=== PATIENT | female | born 1950 | race Caucasian/White ===

== ENCOUNTER → 2017-01-04 | Outpatient (CLI) | payer BC ==
[~2017-01-04] MED LIST: ALPR-411 PO; LCTXP OR; LEVO1TAB34 PO; LPR25 PO; METR500T PO; MULT-513 PO; [UNRECOGNIZED DRUG - CODE] TOP
--- NOTE | 2017-01-04 11:22 | DIAGNOSTIC IMAGING REPORT ---
CHEST 2 VIEWS ROUTINE CLINICAL HISTORY: Persistent cough COMPARISON STUDY: 10/14/2016 FINDINGS: The heart is normal in size. The patient developed subtle interstitial thickening. There is no lobar consolidation. There are no pleural effusions. There is no failure.[ IMPRESSION: Interval development of subtle interstitial thickening left greater than right. This may indicate an inflammatory or infectious interstitial process. Clinical and radiographic follow-up is recommended. Electronically signed by: Fernando Samuels M.D. 01/04/2017 11:21 AM Dictated Date/Time: 01/04/2017 11:20 AM
== END | disposition home or self-care (01) ==
LOC: C.RAD1850 10:33
PROVIDERS: ATTEND Family Medicine
DX: R05 Cough (principal)

== ENCOUNTER 2017-12-12 22:34 | Inpatient (IN) | payer BC, OTHER ==
[~2017-12-12] VITALS: Ht 167.6 cm; Wt 74.9 kg
[~2017-12-12 22:34] MED LIST changes: -LEVO1TAB34 PO; -METR500T PO
[2017-12-12] MEDS ORDERED: SODIUM CHLORIDE 0.9% 1000ML 1,000 ML IV STA (23:26)
[2017-12-12] MEDS ORDERED: ONDANSETRON INJ 2 MG/ML 2 ML VIAL IV STA (23:26)
[2017-12-12] MEDS ORDERED: MoRPHine SULFATE 10 MG/ML CARP/VIAL IV STA (23:26)
--- NOTE | 2017-12-12 23:27 | EMERGENCY ROOM VISIT NOTE ---
History Report prepared by Jw: Vazquez Haney Under the Supervision of: Dr. Justin Kingsley M.D. First contact with patient: 23:19 Chief Complaint: ABDOMINAL PAIN Stated Complaint: BAD STOMACH PAIN Nursing Triage Summary: Patient ambulatory to triage with a steady and upright gait, states "I have had a bowel blockage before. I have had this pain since last night. The pain keeps getting worse. I think I have another blockage." Patient reports her last BM was a small amount just prior to coming to the ED. Patient admits to mild nausea; no vomiting. Patient reports 4 blockages in the past. Patient has CLL and just had an IV Ig infusion a few days ago. History of Present Illness The patient is a 67 year old female who presents to the Emergency Room with complaints of constant abdominal pain beginning last night. The patient states that she has come to the emergency room four times before for bowel blockages. She notes that she has not had any abdominal surgeries and that her bowel obstructions started spontaneously in 2010. She reports that her current symptoms feel similar to when she had a bowel blockage. The patient states that her stomach does not feel hard and notes that she had a small bowel movement that was solid before coming to the emergency department today. In addition to her abdominal pain, she also complains of mild nausea, but denies any vomiting, burning urination, CP, SOB, fever, and recent falls. She notes that she has not eaten anything in the last 24 hours due to her pain. She reports that she has a history of an IVIG for her CLL, but does not have a history of kidney problems, aortic aneurysms, and does not smoke. The patient states that she took a Vicodin last night and a Tylenol today with no relief of her symptoms. Source of History: patient Onset: last night Position: abdomen Timing: constant Associated Symptoms: + nausea (mild), No fevers, No chest pain, No SOB, No vomiting Note: She notes that she has has not eaten anything in the past 24 hours. She denies burning urination, recent falls, and feeling like her stomach is hard. Review of Systems See HPI for pertinent positives & negatives. A total of 10 systems reviewed and were otherwise negative. Past Medical & Surgical Medical Problems: (1) Acute cholecystitis (2) Anemia (3) Chest congestion (4) Chronic lymphoid leukemia, disease (5) Intestinal obstruction (6) Malignant melanoma of lower limb (7) Osteoporosis (8) Palpitations (9) SBO (small bowel obstruction) Family History Cancer Lung disease Social History Smoking Status: Former Smoker Drug Use: none Marital Status: Housing Status: lives with significant other Occupation Status: employed Current/Historical Medications Scheduled Lactobacillus Acidophilus (Lactinex Granules), 1 GM PO TID Multivitamins/Minerals (Mvi With Minerals), 1 TAB PO DAILY Tretinoin (Tretinoin), 1 APPLN TOP HS Scheduled PRN Acetaminophen (Tylenol), 1,000 MG PO DIRECTED PRN for Pain Metoprolol Tartrate (Lopressor), 25 MG PO DAILY PRN for RACING HEART Allergies Coded Allergies: Allopurinol (Verified Allergy, Intermediate, SKIN REACTION, 12/13/17) Prednisone (Verified Allergy, Intermediate, SKIN REACTION, 12/13/17) Sulfa Antibiotics (Verified Allergy, Intermediate, HIVES, 12/13/17) Sulfamethoxazole w/Trimethoprim (Verified Allergy, Intermediate, SKIN REACTION, 12/13/17) Valacyclovir (Verified Allergy, Intermediate, SKIN REACTION, 12/13/17) Physical Exam Vital Signs Date Time Temp Pulse Resp B/P (MAP) Pulse Ox O2 Delivery O2 Flow Rate FiO2 12/13/17 02:54 90 15 94 12/13/17 02:49 90 17 93 Nasal Cannula 2.0 12/13/17 02:34 98 16 95 12/13/17 02:30 141/72 12/13/17 02:19 93 14 94 12/13/17 02:04 91 17 90 12/13/17 02:00 140/87 12/13/17 01:58 Nasal Cannula 2.0 12/13/17 01:49 93 15 91 12/13/17 01:34 92 16 89 12/13/17 01:30 153/79 12/13/17 01:19 96 17 90 12/13/17 01:04 92 14 89 12/13/17 01:00 160/88 12/13/17 00:49 100 16 90 12/13/17 00:34 103 12 95 12/13/17 00:30 145/82 12/13/17 00:19 87 17 92 12/12/17 23:59 96 17 92 12/12/17 23:54 92 15 94 12/12/17 23:49 96 15 92 12/12/17 23:44 98 19 95 12/12/17 23:39 103 21 94 Room Air 12/12/17 23:32 132/79 12/12/17 23:08 36.7 114 20 136/75 94 Room Air Physical Exam GENERAL: Patient is uncomfortable appearing and in moderate distress. HEENT: No acute trauma, normocephalic atraumatic, mucous membranes moist, no nasal congestion, no scleral icterus. NECK: No stridor, no adenopathy, no meningismus, trachea is midline. LUNGS: No dyspnea. Clear to auscultation and equal bilaterally. No wheeze, no rhonchi. HEART: Regular rhythm and tachycardic. No murmurs, rubs, gallops appreciated. ABDOMEN: Soft, bowel sounds positive, no masses appreciated, no peritonitis. Periumbilical tenderness to palpation. BACK: No midline tenderness, no CVA tenderness EXTREMITIES: Normal motion all extremities, no cyanosis, no edema. NEUROLOGIC: Alert and oriented, no acute motor or sensory deficits, no focal weakness, cranial nerves grossly intact. SKIN: No rash, no jaundice, no diaphoresis. Medical Decision & Procedures ER Provider Diagnostic Interpretation: Radiology results and stated below per my review interpretation: 4 ACUTE ABDOMINAL SERIES WITH CHEST X-RAY: Distended loop of small bowel in lower mid abdomen, with air fluid levels consistent with small bowel obstruction. No free air appreciated. Laboratory Results 12/12/17 23:20 Red Blood Count 4.32, Mean Corpuscular Volume 85.4, Mean Corpuscular Hemoglobin 28.2, Mean Corpuscular Hemoglobin Concent 33.1, Mean Platelet Volume 10.4 12/12/17 23:20 Test 12/12/17 23:20 12/12/17 23:30 12/12/17 23:40 White Blood Count 107.07 K/uL (4.8-10.8) Red Blood Count 4.32 M/uL (4.2-5.4) Hemoglobin 12.2 g/dL (12.0-16.0) Hematocrit 36.9 % (37-47) Mean Corpuscular Volume 85.4 fL (80-100) Mean Corpuscular Hemoglobin 28.2 pg (25-34) Mean Corpuscular Hemoglobin Concent 33.1 g/dl (32-36) Platelet Count 141 K/uL (130-400) Mean Platelet Volume 10.4 fL (7.4-10.4) RDW Standard Deviation 49.8 fL (36.4-46.3) RDW Coefficient of Variation 15.8 % (11.5-14.5) Neutrophils % (Manual) 4.4 % Lymphocytes % (Manual) 94.7 % Monocytes % (Manual) 0.9 % Neutrophils # (Manual) 4.71 K/uL (1.4-6.5) Total Absolute Neutrophils 4.71 K/uL (1.4-6.5) Lymphocytes # (Manual) 101.40 K/uL (1.2-3.4) Total Absolute Lymphocytes 101.40 K/uL (1.2-3.4) Monocytes # (Manual) 0.96 K/uL (0.11-0.59) Est Creatinine Clear Calc Drug Dose 75.6 ml/min Estimated GFR () 96.9 Estimated GFR (Non- 83.6 BUN/Creatinine Ratio 14.2 (10-20) Calcium Level 9.4 mg/dl (8.5-10.1) Total Bilirubin 0.4 mg/dl (0.2-1) Direct Bilirubin < 0.1 mg/dl (0-0.2) Aspartate Amino Transf (AST/SGOT) 60 U/L (15-37) Alanine Aminotransferase (ALT/SGPT) 47 U/L (12-78) Alkaline Phosphatase 217 U/L (45-117) Total Protein 8.0 gm/dl (6.4-8.2) Albumin 3.9 gm/dl (3.4-5.0) Lipase 117 U/L (73-393) Bedside Hemoglobin 11.2 g/dl (12.0-16.0) Bedside Hematocrit 33 % (37-47) Bedside Sodium 138 mEq/L (135-144) Bedside Potassium 4.0 mEq/L (3.3-5.0) Bedside Chloride 103 mEq/L (101-112) Bedside Total CO2 25 mEq/l (24-31) Anion Gap 15.0 mmol/L (16-25) Bedside Blood Urea Nitrogen 10 mg/dl (7-18) Bedside Creatinine 0.7 mg/dl (0.6-1.3) Bedside Glucose (other) 123 mg/dl (70-99) Bedside Ionized Calcium ([place]) 1.22 mmol/l (1.12-1.32) Urine Color DK YELLOW Urine Appearance CLEAR (CLEAR) Urine pH 5.5 (4.5-7.5) Urine Specific [place] 1.023 (1.000-1.030) Urine Protein NEG (NEG) Urine Glucose (UA) NEG (NEG) Urine Ketones TRACE (NEG) Urine Occult Blood NEG (NEG) Urine Nitrite NEG (NEG) Urine Bilirubin NEG (NEG) Urine Urobilinogen NEG (NEG) Urine Leukocyte Esterase SMALL (NEG) Urine WBC (Auto) 10-30 /hpf (0-5) Urine RBC (Auto) 5-10 /hpf (0-4) Urine Hyaline Casts (Auto) 1-5 /lpf (0-5) Urine Epithelial Cells (Auto) 10-20 /lpf (0-5) Urine Bacteria (Auto) NEG (NEG) Laboratory results as reviewed by me. Medications Administered Medications (Trade) Dose Ordered Sig/Mary Route Start Time Stop Time Status Last Admin Dose Admin Morphine Sulfate (MoRPHine SULFATE INJ) 6 mg NOW STAT IV 12/12/17 23:26 12/12/17 23:27 DC 12/12/17 23:49 6 MG Ondansetron HCl (Zofran Inj) 4 mg NOW STAT IV 12/12/17 23:26 12/12/17 23:27 DC 12/12/17 23:47 4 MG Sodium Chloride 1,000 ml @ 999 mls/hr Q1H1M STAT IV 12/12/17 23:26 12/13/17 00:26 DC 12/12/17 23:45 999 MLS/HR Lorazepam (Ativan Inj) 1 mg NOW STAT IV 12/13/17 00:25 12/13/17 00:26 DC 12/13/17 00:30 1 MG Hydromorphone HCl (Dilaudid Inj) 0.5 mg NOW STAT IV 12/13/17 01:29 12/13/17 01:30 DC 12/13/17 01:47 0.5 MG Ondansetron HCl (Zofran Inj) 4 mg NOW STAT IV 12/13/17 01:48 12/13/17 01:53 DC 12/13/17 01:53 4 MG ED Course 2321: The patient was evaluated in room A11. A complete history and physical exam was performed. 0033: I discussed the patient's case with Dr. Cruz. 0113: Upon reevaluation, the patient is stable. Discussed results and treatment plan with the patient. She verbalized understanding and agreement with the treatment plan. The patient will be evaluated for further management. Discussed the patient's case with Dr. David - KIERA Piña. The patient will be evaluated for further treatment and disposition. Medical Decision Differential: Bowel Obstruction, Volvulus, Gastroenteritis, Intraabdominal Infection, Biliary Pathology, amongst other pathology entertained. 67 yr old female with no history of abdominal surgeries but notes previous small bowel obstructions of unknown cause. Arrives with same symptoms as previous obstructions and Xrays consistent with this. NG tube placed. Pain controlled with narcotics. Surgery and Hospitalists involved in patient care. Unclear why she keeps having this. Of note, patient with CT order placed by surgery service, nursing reporting patient becoming severely nauseous when trying to drink further contrast thus I advised turning NG tube back on to avoid vomiting/aspiration, and just going ahead with CT now rather than waiting longer. Medication Reconcilliation Current Medication List: was personally reviewed by me Blood Pressure Screening Patient's blood pressure: Elevated blood pressure Blood pressure disposition: Elevated BP felt to be situational Consults Time Called: 30 Consulting Physician: Dr. Cruz Returned Call: [phone] Discussed the patient's case. Additional Consults: Time Called: 011 Consulted Physician: KIERA Rodas Returned Call: [phone] Additional Comments: Discussed the patient's case. The patient will be evaluated for further treatment and disposition. Impression Primary Impression: SBO (small bowel obstruction) Scribe Attestation The scribe's documentation has been prepared under my direction and personally reviewed by me in its entirety. I confirm that the note above accurately reflects all work, treatment, procedures, and medical decision making performed by me. Departure Information Dispostion Being Evaluated By Hospitalist Sendy Hazel M.D. (PCP) Patient Instructions [facility]
[2017-12-12 23:43] LABS: ISTAT CREATININE 0.7 mg/dl (0.6-1.3); ISTAT IONIZED CALCIUM 1.22 mmol/l (1.12-1.32)
[2017-12-12 23:54] LABS: ALBUMIN 3.9 gm/dl (3.4-5.0); ALT/SGPT 47 U/L (12-78); AST/SGOT 60 U/L (15-37); BLOOD UREA NITROGEN 11 mg/dl (7-18); CALCIUM 9.4 mg/dl (8.5-10.1); CARBON DIOXIDE 25 mmol/L (21-32); CREATININE 0.75 mg/dl (0.60-1.20); GLUCOSE 117 mg/dl (70-99); LIPASE 117 U/L (73-393); POTASSIUM 4.4 mmol/L (3.5-5.1); SODIUM 137 mmol/L (136-145)
[2017-12-12 23:57] LABS: ALKALINE PHOSPHATASE 217 U/L (45-117)
[2017-12-13] VITALS (17 sets, daily range): BP systolic 91–150; BP diastolic 59–79; PULSE 78–200; TEMP 36.5–36.9; O2SAT 89–98; Ht 167.6 cm; Wt 74.9 kg
[2017-12-13 00:05] LABS: HEMATOCRIT 36.9 % (37-47); HEMOGLOBIN 12.2 g/dL (12.0-16.0); MEAN CELL VOLUME 85.4 fL (80-100); MEAN CORPUSCULAR HEMOGLOBIN 28.2 pg (25-34); MEAN CORPUSCULAR HGB CONC 33.1 g/dl (32-36); MEAN PLATELET VOLUME 10.4 fL (7.4-10.4); PLATELET COUNT 141 K/uL (130-400); RED CELL DISTRIBUTION WIDTH CV 15.8 % (11.5-14.5); RED CELL DISTRIBUTION WIDTH SD 49.8 fL (36.4-46.3); WHITE BLOOD COUNT 107.07 K/uL (4.8-10.8)
[2017-12-13] MEDS ORDERED: LORAZEPAM 2 MG/ML 1 ML VIAL IV STA (00:25)
[2017-12-13] MEDS ORDERED: LACT1GRA PO (00:27)
[2017-12-13] MEDS ORDERED: ACET-1256 PO (00:27)
[2017-12-13] MEDS ORDERED: HYDROmorphone INJ 0.5 MG/0.5 ML SYR IV STA (01:29)
[2017-12-13] MEDS ORDERED: ONDANSETRON INJ 2 MG/ML 2 ML VIAL IV STA (01:48)
[2017-12-13] MEDS ORDERED: ONDANSETRON INJ 2 MG/ML 2 ML VIAL ONE (01:52)
[2017-12-13] MEDS ORDERED: MoRPHine SULFATE 4 MG/ML 1 ML CARP\\VIAL IV PRN (03:00)
[2017-12-13] MEDS ORDERED: MoRPHine SULFATE 2 MG/ML CARP IV PRN (03:00)
[2017-12-13] MEDS ORDERED: ONDANSETRON INJ 2 MG/ML 2 ML VIAL IV PRN (03:00)
[2017-12-13] MEDS ORDERED: OPTIRAY 320 IV PRN (03:30)
--- NOTE | 2017-12-13 03:35 | Medical Consult ---
Consultation Date of Consultation: Dec 13, 2017. Attending Physician: Reason for Consultation: small bowel obstruction History of Present Illness Patient is a 67F who presents to the ED tonight with generalized abdominal pain and nausea which began last night. Rates her pain at 5/10. States she ate a chicken sandwich from [email or web address] and started noticing her pain. Denies any vomiting. Reports 4 previous episodes of small bowel obstruction in the past, the first being in 2010, which were all treated conservatively. An NG tube was placed for 3/4 of these past episodes. Denies any past abdominal surgeries. Reports that her symptoms feel similar to her previous bowel obstructions. States she had a small bowel movement today right before coming to the ED. Denies blood in her stool. States she had her last colonoscopy 2-3 years ago with the [facility] but does not remember which doctor performed it. Does not recall anything abnormal with her last colonoscopy. She has been urinating without trouble. Reports she did take a vicodin last night without relief. Denies regular use of opioid medications. States she received morphine in the ED which has not done much to relieve her pain. NG tube was placed in the ED with minimal output so far. She also received a dose of Zofran and denies any nausea at this time. Of note, she does have a history of CLL and currently follows with [facility] and reports receiving her last IVIG therapy this past Saturday12/09/17. WBC count 107.07. Past Medical/Surgical History Medical Problems: (1) Diffuse abdominal pain Status: Acute (2) SBO (small bowel obstruction) Status: Acute Family History Cancer Lung disease Social History Smoking Status: Former Smoker Drug Use: none Marital Status: Housing Status: lives with significant other Occupation Status: employed Allergies Coded Allergies: Allopurinol (Verified Allergy, Intermediate, SKIN REACTION, 12/13/17) Prednisone (Verified Allergy, Intermediate, SKIN REACTION, 12/13/17) Sulfa Antibiotics (Verified Allergy, Intermediate, HIVES, 12/13/17) Sulfamethoxazole w/Trimethoprim (Verified Allergy, Intermediate, SKIN REACTION, 12/13/17) Valacyclovir (Verified Allergy, Intermediate, SKIN REACTION, 12/13/17) Review of Systems Constitutional: No fever, No chills Respiratory: No shortness of breath Cardiovascular: No chest pain Abdomen: + pain (Generalized), + nausea, No vomiting, No diarrhea, No constipation Genitourinary - Female: No dysuria Physical Exam Date Time Temp Pulse Resp B/P (MAP) Pulse Ox O2 Delivery O2 Flow Rate FiO2 12/12/17 23:59 96 17 92 12/12/17 23:54 92 15 94 12/12/17 23:49 96 15 92 12/12/17 23:44 98 19 95 12/12/17 23:39 103 21 94 Room Air 12/12/17 23:32 132/79 12/12/17 23:08 36.7 114 20 136/75 94 Room Air Patient sitting up in bed chatting with her at bedside upon entering the room. General Appearance: WD/WN, no apparent distress Head: normocephalic, atraumatic ENT: hearing grossly normal Neck: trachea midline Respiratory/Chest: no respiratory distress, no accessory muscle use Abdomen/GI: normal bowel sounds, soft, no organomegaly, no pulsatile mass, + tenderness (Generalized. most prominent in epigastric and periumbilical areas.) Neurologic/Psych: alert, normal mood/affect, oriented x 3 Laboratory Results Last 24 Hours Test 12/12/17 23:20 12/12/17 23:30 12/12/17 23:40 White Blood Count 107.07 K/uL Red Blood Count 4.32 M/uL Hemoglobin 12.2 g/dL Hematocrit 36.9 % Mean Corpuscular Volume 85.4 fL Mean Corpuscular Hemoglobin 28.2 pg Mean Corpuscular Hemoglobin Concent 33.1 g/dl Platelet Count 141 K/uL Mean Platelet Volume 10.4 fL RDW Standard Deviation 49.8 fL RDW Coefficient of Variation 15.8 % Neutrophils % (Manual) 4.4 % Lymphocytes % (Manual) 94.7 % Monocytes % (Manual) 0.9 % Neutrophils # (Manual) 4.71 K/uL Total Absolute Neutrophils 4.71 K/uL Lymphocytes # (Manual) 101.40 K/uL Total Absolute Lymphocytes 101.40 K/uL Monocytes # (Manual) 0.96 K/uL Sodium Level 137 mmol/L Potassium Level 4.4 mmol/L Chloride Level 106 mmol/L Carbon Dioxide Level 25 mmol/L Anion Gap 6.0 mmol/L 15.0 mmol/L Blood Urea Nitrogen 11 mg/dl Creatinine 0.75 mg/dl Est Creatinine Clear Calc Drug Dose 75.6 ml/min Estimated GFR () 96.9 Estimated GFR (Non- 83.6 BUN/Creatinine Ratio 14.2 Random Glucose 117 mg/dl Calcium Level 9.4 mg/dl Total Bilirubin 0.4 mg/dl Direct Bilirubin < 0.1 mg/dl Aspartate Amino Transf (AST/SGOT) 60 U/L Alanine Aminotransferase (ALT/SGPT) 47 U/L Alkaline Phosphatase 217 U/L Total Protein 8.0 gm/dl Albumin 3.9 gm/dl Lipase 117 U/L Bedside Hemoglobin 11.2 g/dl Bedside Hematocrit 33 % Bedside Sodium 138 mEq/L Bedside Potassium 4.0 mEq/L Bedside Chloride 103 mEq/L Bedside Total CO2 25 mEq/l Bedside Blood Urea Nitrogen 10 mg/dl Bedside Creatinine 0.7 mg/dl Bedside Glucose (other) 123 mg/dl Bedside Ionized Calcium ([place]) 1.22 mmol/l Urine Color DK YELLOW Urine Appearance CLEAR Urine pH 5.5 Urine Specific [place] 1.023 Urine Protein NEG Urine Glucose (UA) NEG Urine Ketones TRACE Urine Occult Blood NEG Urine Nitrite NEG Urine Bilirubin NEG Urine Urobilinogen NEG Urine Leukocyte Esterase SMALL Urine WBC (Auto) 10-30 /hpf Urine RBC (Auto) 5-10 /hpf Urine Hyaline Casts (Auto) 1-5 /lpf Urine Epithelial Cells (Auto) 10-20 /lpf Urine Bacteria (Auto) NEG Assessment & Plan Abdominal pain, nausea, Multiple dilated loops of small bowel per chest/ abdominal x-ray suggestive of small bowel obstruction. Pain controlled, No N/V at this time. No acute surgical intervention indicated at this time. Will opt for conservative management. Admit per medicine service. CT abd/pelvis ordered, NPO, NG tube placed, IV fluids, IV pain medication PRN , IV Zofran PRN for nausea, SCDs. Findings discussed with Dr. Petit. Will discuss findings with Dr. Pierre in the AM. Please contact with questions or concerns. 12/13/17- agree with above assessment- has dilated , chronically thickened loop of small bowel in pelvis. This appears to be different than prior CTs. Clinically , her abd is soft, normal bowel sounds, minimal tenderness- initial NG output was approx 100cc w/ [address] contrast- no reading on CT yet. Discussed possible need for exploration depending on her progress- consider GI evaluation- has seen Dr Martínez in the past. She does not want surgery unless absolutely necessary- cont NG, IV meds, may have ice. Dr Gold covering over weekend.
[2017-12-13] MEDS: NSS + 20MEQ KCL 1000ML 1,000 ML IV SCH ×3 (04:29→23:59)
[2017-12-13] MEDS ORDERED: PIPERACILL/TAZOBAC IV 3.375 GM in DEXTROSE 5% 100ML 100 ML IV ONE ×4 (04:30)
[2017-12-13] MEDS ORDERED: PIPERACILL/TAZOBAC CONSULT ACTIVE PRN (04:30)
--- NOTE | 2017-12-13 05:05 | History and Physical ---
History & Physical Date & Time of Service: Dec 13, 2017 at 04:56 Chief Complaint: Cll, Sbo Primary Care Physician: Sendy Mohamud M.D. History of Present Illness Source: patient, hospital records The patient is a 67-year-old female with a previous history of 4 bowel obstructions, none requiring surgery, who presents to the emergency department with constant abdominal pain that began the previous evening, similar to previous episodes in the past. She reports that she did have a small bowel movement prior to coming to the emergency department today. She has had some mild nausea, but no vomiting. Past Medical/Surgical History Medical Problems: (1) Anemia Status: Chronic (2) Chest congestion Status: Resolved (3) Chronic lymphoid leukemia, disease Status: Chronic (4) Intestinal obstruction Status: Resolved (5) Malignant melanoma of lower limb Permanent Comment: right thigh Status: Resolved (6) Osteoporosis Status: Chronic (7) Palpitations Status: Resolved Family History Cancer Lung disease Social History Smoking Status: Former Smoker Smokeless Tobacco Use: No Alcohol Use: none Drug Use: none Marital Status: Housing status: lives with family Occupational Status: employed Immunizations History of Influenza Vaccine: Yes History of Tetanus Vaccine?: UTD History of Pneumococcal: No History of Hepatitis B Vaccine: No Multi-Drug Resistant Organisms History of MDRO: No Allergies Coded Allergies: Allopurinol (Verified Allergy, Intermediate, SKIN REACTION, 12/13/17) Prednisone (Verified Allergy, Intermediate, SKIN REACTION, 12/13/17) Sulfa Antibiotics (Verified Allergy, Intermediate, HIVES, 12/13/17) Sulfamethoxazole w/Trimethoprim (Verified Allergy, Intermediate, SKIN REACTION, 12/13/17) Valacyclovir (Verified Allergy, Intermediate, SKIN REACTION, 12/13/17) Home Medications Scheduled Lactobacillus Acidophilus (Lactinex Granules), 1 GM PO TID Multivitamins/Minerals (Mvi With Minerals), 1 TAB PO DAILY Tretinoin (Tretinoin), 1 APPLN TOP HS Scheduled PRN Acetaminophen (Tylenol), 1,000 MG PO DIRECTED PRN for Pain Metoprolol Tartrate (Lopressor), 25 MG PO DAILY PRN for RACING HEART Review of Systems The patient denies chest pain, palpitations, shortness of breath, dyspnea on exertion, cough, lower extremity swelling, sore throat, fevers, chills, sweats, weight change, blood in urine or stool, dysuria, urinary frequency or urgency, headache, memory loss, loss of consciousness, rash, abnormal bruising or bleeding, imbalance, focal weakness, numbness or tingling in arms or legs, generalized arthralgias or myalgias, back or neck pain, or night sweats. The review of systems is otherwise negative other than for that already noted above, and at least 10 systems have been reviewed. Physical Exam Vital Signs Date Time Temp Pulse Resp B/P (MAP) Pulse Ox O2 Delivery O2 Flow Rate FiO2 12/13/17 03:44 92 94 Nasal Cannula 2.0 12/13/17 03:39 89 16 94 12/13/17 03:34 86 12 97 12/13/17 03:30 129/63 12/13/17 03:29 91 12 96 12/13/17 03:24 99 18 95 12/13/17 03:09 90 15 94 12/13/17 03:00 134/67 12/13/17 02:54 90 15 94 12/13/17 02:49 90 17 93 Nasal Cannula 2.0 12/13/17 02:34 98 16 95 12/13/17 02:30 141/72 12/13/17 02:19 93 14 94 12/13/17 02:04 91 17 90 12/13/17 02:00 140/87 12/13/17 01:58 Nasal Cannula 2.0 12/13/17 01:49 93 15 91 12/13/17 01:34 92 16 89 12/13/17 01:30 153/79 12/13/17 01:19 96 17 90 12/13/17 01:04 92 14 89 12/13/17 01:00 160/88 12/13/17 00:49 100 16 90 12/13/17 00:34 103 12 95 12/13/17 00:30 145/82 12/13/17 00:19 87 17 92 12/12/17 23:59 96 17 92 12/12/17 23:54 92 15 94 12/12/17 23:49 96 15 92 12/12/17 23:44 98 19 95 12/12/17 23:39 103 21 94 Room Air 12/12/17 23:32 132/79 12/12/17 23:08 36.7 114 20 136/75 94 Room Air The patient is awake, alert and oriented 3, well developed and well nourished, normocephalic and atraumatic, lying in bed and in no acute distress. HEENT--PERRL, EOMI, mucous membranes and oropharynx dry. Neck--supple. No JVD. No bruits. Thyroid normal, trachea midline, no adenopathy. Heart--normal S1 and S2. No murmurs, rubs or gallops. Lungs--clear bilaterally, no respiratory distress, no accessory muscle use. Abdomen--decreased bowel sounds. Soft. Mild generalized tender. Mildly distended. Extremities--no cyanosis or clubbing. No edema. There are good distal pulses b/ l. Dermatologic--normal skin turgor, normal color, no abnormal lymph nodes, no rash. Neurologic--cranial nerves II through XII grossly intact. Rheumatologic--normal range of motion. Psychiatric--normal affect. Diagnostics Laboratory Results Results Past 24 Hours Test 12/12/17 23:20 12/12/17 23:30 12/12/17 23:40 Range/Units White Blood Count 107.07 4.8-10.8 K/uL Red Blood Count 4.32 4.2-5.4 M/uL Hemoglobin 12.2 12.0-16.0 g/dL Hematocrit 36.9 37-47 % Mean Corpuscular Volume 85.4 80-100 fL Mean Corpuscular Hemoglobin 28.2 25-34 pg Mean Corpuscular Hemoglobin Concent 33.1 32-36 g/dl Platelet Count 141 130-400 K/uL Mean Platelet Volume 10.4 7.4-10.4 fL RDW Standard Deviation 49.8 36.4-46.3 fL RDW Coefficient of Variation 15.8 11.5-14.5 % Neutrophils % (Manual) 4.4 % Lymphocytes % (Manual) 94.7 % Monocytes % (Manual) 0.9 % Neutrophils # (Manual) 4.71 1.4-6.5 K/uL Total Absolute Neutrophils 4.71 1.4-6.5 K/uL Lymphocytes # (Manual) 101.40 1.2-3.4 K/uL Total Absolute Lymphocytes 101.40 1.2-3.4 K/uL Monocytes # (Manual) 0.96 0.11-0.59 K/uL Sodium Level 137 136-145 mmol/L Potassium Level 4.4 3.5-5.1 mmol/L Chloride Level 106 98-107 mmol/L Carbon Dioxide Level 25 21-32 mmol/L Anion Gap 6.0 15.0 16-25 mmol/L Blood Urea Nitrogen 11 7-18 mg/dl Creatinine 0.75 0.60-1.20 mg/dl Est Creatinine Clear Calc Drug Dose 75.6 ml/min Estimated GFR () 96.9 Estimated GFR (Non- 83.6 BUN/Creatinine Ratio 14.2 10-20 Random Glucose 117 70-99 mg/dl Calcium Level 9.4 8.5-10.1 mg/dl Total Bilirubin 0.4 0.2-1 mg/dl Direct Bilirubin < 0.1 0-0.2 mg/dl Aspartate Amino Transf (AST/SGOT) 60 15-37 U/L Alanine Aminotransferase (ALT/SGPT) 47 12-78 U/L Alkaline Phosphatase 217 45-117 U/L Total Protein 8.0 6.4-8.2 gm/dl Albumin 3.9 3.4-5.0 gm/dl Lipase 117 73-393 U/L Bedside Hemoglobin 11.2 12.0-16.0 g/dl Bedside Hematocrit 33 37-47 % Bedside Sodium 138 135-144 mEq/L Bedside Potassium 4.0 3.3-5.0 mEq/L Bedside Chloride 103 101-112 mEq/L Bedside Total CO2 25 24-31 mEq/l Bedside Blood Urea Nitrogen 10 7-18 mg/dl Bedside Creatinine 0.7 0.6-1.3 mg/dl Bedside Glucose (other) 123 70-99 mg/dl Bedside Ionized Calcium ([place]) 1.22 1.12-1.32 mmol/l Urine Color DK YELLOW Urine Appearance CLEAR CLEAR Urine pH 5.5 4.5-7.5 Urine Specific [place] 1.023 1.000-1.030 Urine Protein NEG NEG Urine Glucose (UA) NEG NEG Urine Ketones TRACE NEG Urine Occult Blood NEG NEG Urine Nitrite NEG NEG Urine Bilirubin NEG NEG Urine Urobilinogen NEG NEG Urine Leukocyte Esterase SMALL NEG Urine WBC (Auto) 10-30 0-5 /hpf Urine RBC (Auto) 5-10 0-4 /hpf Urine Hyaline Casts (Auto) 1-5 0-5 /lpf Urine Epithelial Cells (Auto) 10-20 0-5 /lpf Urine Bacteria (Auto) NEG NEG Microbiology Results 12/12/17 Urine Culture, Received Pending Impression Assessment and Plan Recurrent small bowel obstruction-- Admit to the medical surgical floor. Nothing by mouth status IV fluids Zosyn 3.375 mg IV every 8 hours Morphine sulfate 2-4 mg IV every 2 hours when necessary Zofran 4 mg IV every 6 hours when necessary Protonix 40 mg IV daily NG tube to low intermittent suction Consult general surgery to follow Serial CBC with differential, chemistry profile and magnesium level CLL-- WBC around 107, which is close to her baseline Level of Care Med/Surg Advanced Directives Existing Advance Directive: No Existing Living Will: No Existing Power of Rx Specialist: No Resuscitation Status FULL RESUSCITATION VTE Prophylaxis VTE Risk Assessment Done? Y/N: Yes Risk Level: Moderate Given or contraindicated: SCD's Social Service Consult None Apply
--- NOTE | 2017-12-13 07:25 | DIAGNOSTIC IMAGING REPORT ---
CT SCAN OF THE ABDOMEN AND PELVIS WITH IV CONTRAST CLINICAL HISTORY: Generalized abdominal pain. COMPARISON STUDY: Abdominal CT dated 08/01/2017. TECHNIQUE: Following the IV administration of 118 cc of Optiray 320, CT scan of the abdomen and pelvis is performed from the lung bases to the proximal femora. Images are reviewed in the axial, sagittal, and coronal planes. IV contrast was administered without complication. A dose lowering technique was utilized adhering to the principles of ALARA. CT DOSE: 378.79 mGy.cm FINDINGS: Lung bases: The heart is normal in size and without pericardial effusion. The lung bases are clear. Liver: The contrast-enhanced liver is normal in size, contour, and attenuation. There is no intrahepatic biliary ductal dilatation. The hepatic veins and portal veins are patent. Gallbladder: The gallbladder is contracted and filled with calcified gallstones. Spleen: The spleen is markedly enlarged, measuring 16.6 cm in length. Pancreas: Unremarkable. Adrenal glands: Unremarkable. Kidneys: The contrast enhanced kidneys are normal in size and without hydronephrosis. The kidneys enhance symmetrically. A subcentimeter cortical hypodensity in the lower pole the right kidney likely represents a cyst but is too small for definitive characterization. Abdominal vasculature: The abdominal aorta is normal in course and caliber noting mild atherosclerotic calcification. Stomach and bowel: An enteric tube terminates in the stomach. There is a small hiatal hernia. The duodenum is normal in configuration. There are distended, thick-walled, and hyperemic loops of small bowel in the pelvis. These are best seen on image #351 and measure up to 5 cm in diameter. There is stranding inflammatory change. The upstream small bowel loops are normal in caliber, and no discrete transition point is identified. There is mild sigmoid diverticulosis without CT evidence of acute diverticulitis. The appendix is normal as visualized. Peritoneum: There is no intraperitoneal free air or abdominal ascites. Lymphadenopathy: Mildly enlarged mesenteric lymph nodes in the right lower quadrant measure up to 11 mm in short axis. There are enlarged pelvic sidewall nodes. A node on image #3 and 44 measures 3.5 x 1.2 cm. A left pelvic sidewall node on image #350 measures 2.6 x 1.5 cm. No inguinal adenopathy is seen. Pelvic viscera: The bladder, uterus, and adnexa are normal as visualized. Skeletal structures: The skeletal structures are osteopenic. Mild degenerative change is present in the lumbar spine. There is near complete fusion of the sacroiliac joints. No lytic or blastic lesions are seen. IMPRESSION: 1. There are mildly distended, thick-walled, and hyperemic loops of small bowel in the pelvis with surrounding inflammatory change. The appearance is most typical for a nonspecific enteritis. This could be on an infectious or inflammatory basis such as Crohn's disease. Clinical correlation will be essential. 2. There is no convincing evidence of small bowel obstruction. No discrete transition point is identified. 3. Mildly enlarged mesenteric lymph nodes as well as free fluid in the pelvis are likely on a reactive basis. 4. The spleen is markedly enlarged and there is pelvic sidewall adenopathy. These findings are nonspecific but could be seen in the setting of a lymphoproliferative disorder. Clinical correlation will be essential. 5. An enteric tube terminates in the stomach. 6. Cholelithiasis. 7. Additional findings as above. Electronically signed by: Gadiel Narvaez M.D. 12/13/2017 7:24 AM Dictated Date/Time: 12/13/2017 7:15 AM
--- NOTE | 2017-12-13 07:40 | DIAGNOSTIC IMAGING REPORT ---
PA CHEST WITH ABDOMINAL SERIES CLINICAL HISTORY: Generalized abdominal pain. FINDINGS: A PA chest radiograph is compared to study dated 08/01/2017. The cardiomediastinal silhouette is unremarkable. The lungs and pleural spaces are clear. No pneumothorax is seen. The bony thorax is grossly intact. Supine and erect abdominal radiographs are correlated with abdominal CT dated 08/01/2017. Moderate colonic fecal retention is observed. There is no radiographic evidence of high-grade bowel obstruction. Distended and gas-filled loops of small bowel present in the mid abdomen. No evidence of intraperitoneal free air is seen. The spleen is markedly enlarged. There are no abnormal abdominal calcifications. Levels are noted in the left hemipelvis. The lumbosacral spine and bony pelvis appear intact. Degenerative change is present in the sacroiliac joints. IMPRESSION: 1. No active disease in the chest. 2. There is no radiographic evidence of high-grade bowel obstruction. There are nonspecific distended and gas-filled loops of small bowel in the midabdomen. 3. No intraperitoneal free air is seen. 4. Marked splenomegaly. Electronically signed by: Gadiel Narvaez M.D. 12/13/2017 7:39 AM Dictated Date/Time: 12/13/2017 7:37 AM
[2017-12-13] MEDS: PIPERACILL/TAZOBAC IV 3.375 GM in DEXTROSE 5% 100ML 100 ML IV SCH ×2 (10:02→17:53)
[2017-12-13] MEDS: PANTOprazole INJ 40 MG in SYRINGE 0 ML IV SCH (11:21)
[2017-12-13] MEDS ORDERED: ACETAMINOPHEN IV 100 ML IV PRN (11:45)
--- NOTE | 2017-12-13 15:46 | GASTROINTESTINAL CONSULTATION ---
DATE OF CONSULTATION: 12/13/2017 CHIEF COMPLAINT: Nausea, abnormal CT imaging. HISTORY OF PRESENT ILLNESS: Mrs. Claudio is a 67-year-old white female who presented to the Emergency Room for nausea and vomiting that has been present since approximately Saturday. She has a history of recurrent intermittent bowel obstructions dating back to 2010 at which point, her CLL was also diagnosed and received Rituxan. She did receive this IVIGG on Saturday. She describes that she was having flatus and passing a small amount of stools, but noted that her abdomen was uncomfortable and more distended than usual and ultimately developed pain in this area. She did not describe vomiting per se, but did have nausea. There was no hematemesis or coffee ground emesis and she was not having melena or bright red blood per rectum. She denies any fever or shaking chills. PAST MEDICAL HISTORY: Include anemia, chronic lymphoid leukemia since 2010, recurrent intestinal obstruction, malignant melanoma of the lower limb, osteoporosis, and palpitations. FAMILY HISTORY: Significant for a lung disease and cancer. SOCIAL HISTORY: The patient was a former smoker, but not current. She denies alcohol use, is , employed and lives with her family. MEDICATIONS: The patient's current medication list includes acetaminophen, pantoprazole, Zosyn, potassium, and morphine. ALLERGIES: ALLOPURINOL, PREDNISONE, SULFA ANTIBIOTICS, SULFAMETHOXAZOLE, TRIMETHOPRIM AND VALACYCLOVIR. REVIEW OF SYSTEMS: Otherwise, noncontributory based on 13-point exam except for mentioned above. PHYSICAL EXAMINATION: VITAL SIGNS: On admission showed afebrile 36.7, blood pressure 136/75, 94% on room air, respirations 20, heart rate 114. GENERAL: The patient is awake, alert and oriented x3. HEENT: Sclerae are anicteric, conjunctiva moist. Oral mucosa moist. There is an NG tube that is bothersome to the patient that is indwelling and she also reports that has not had any meaningful output since its placement. NECK: The neck shows normal range of motion. There is no cervical or supraclavicular adenopathy. I do not appreciate thyromegaly. HEART: Normal S1, S2. LUNGS: Clear to auscultation without rales, rhonchi or wheezes. ABDOMEN: Soft, mildly tender, and nondistended with positive bowel sounds. There is no rebound or guarding. There is mild tympany noted. There is no hepatosplenomegaly. There are no abdominal bruits or masses. There are no ventral wall hernias. EXTREMITIES: Showed normal range of motion without focal neurologic defects. Without clubbing, cyanosis or edema. RECTAL: Deferred. LABORATORY STUDIES: Blood counts on admission - white count is 107.07 (history of CLL), hemoglobin 12.2, MCV 85, platelets 141. BUN and creatinine are 11 and 0.75. Total and direct 0.4 and less than 0.1. AST 60, ALT 47, alkaline phosphatase 217, total protein 8, albumin 3.9, lipase 117. Ionized calcium 1.22. IMAGING STUDIES: Chest x-ray from December 13 revealed no active disease in the chest or evidence of a high grade bowel obstruction. There is a nonspecific gas filled loops in the small bowel, no free air with marked splenomegaly is noted. On CT scan, liver is normal with patent hepatic and portal veins. The gallbladder is contracted with calcified stones, markedly enlarged spleen at 16 cm, pancreas and adrenals are unremarkable. There is a nasogastric tube in the stomach with a small hiatal hernia. There are distended loops of small bowel in the pelvic region that measure up to 5 cm in diameter. There is also stranding noted. There is, however, no specific transition point identified, mild sigmoid diverticulosis without diverticulitis and a normal-appearing appendix are noted. Interestingly, the small bowel upstream from this loop of distended bowel appeared to be normal. There is no free air, there are mildly enlarged mesenteric lymph nodes noted with enlarged pelvic side wall nodes. Bladder, uterus and adnexa are normal. LFTs show a total bilirubin of 0.4, AST 60, ALT 47, and alkaline phosphatase 217. IMPRESSION AND PLAN: The patient with symptoms of recurrent bowel obstruction. In this instance, the patient seems to have more abdominal pain than usual, although the duration of symptoms are about the same. She is passing flatus and up until admission was having some stools passed that were nonbloody. She was not having significant vomiting. The small bowel loops seems to be dilated in the pelvic region. The differential for this includes inflammatory bowel disease, other pelvic inflammation, both possible effects of known pelvic adenopathy or primary small bowel wall process such as an infiltrative disease or lymphoma. I made the following recommendations: At the present time, the patient should be n.p.o. and would check a flat plate today to see if there has been any interval change. Would also irrigate the NG tube to see if this is clogged and limiting aspiration. If this is ineffective and there is no obvious distention or if it appears to be improved, then would consider removing the NG tube and observing. Would place the patient on PPI therapy and presently keep the patient n.p.o. with IV fluids and electrolyte management including calcium, magnesium and phosphorus and phosphate. It is unclear if the terminal ileum as involved such that this can be reached by colonoscopy. Will review the CT scan and see if this is in the reach of colonoscopy with terminal ileal intubation. At the present time, I am not sure that direct small bowel wireless capsule is prudent as this could potentially become lodged in this area. Patency Agile capsule could be considered prior to perform a capsule study. At some point, either a dedicated CT or MRI enterography or small bowel follow through may be helpful, if not recently performed. Will monitor with you. Dr. Henley will be covering the GI service this weekend. If you have any questions, please contact our service. Thank you for allowing us to participate in Ms. Claudio's care. KARLA
--- NOTE | 2017-12-13 15:46 | DIAGNOSTIC IMAGING REPORT ---
ABDOMEN 2 VIEWS CLINICAL HISTORY: assess for resolving distended bowel loops and proper NGT placem tube position COMPARISON STUDY: CT examination 12/13/2017 FINDINGS: Interval removal of the nasogastric tube. Bowel pattern is improved. No significant small bowel distention. Normal caliber colon. IMPRESSION: Improved bowel pattern status post removal of the nasogastric tube. No significant bowel or small bowel distention on the current study. The above report was generated using voice recognition software. It may contain grammatical, syntax or spelling errors. Electronically signed by: Venkatesh Koroma M.D. 12/13/2017 3:44 PM Dictated Date/Time: 12/13/2017 3:40 PM
--- NOTE | 2017-12-13 16:41 | Progress Note ---
Progress Note Date of Service Dec 13, 2017. Progress Note Patient admitted earlier this AM, this is follow up visit Doing well, no output from NGT, NG pulled, repeat x-ray shows resolution of bowel distention less pain today, + flatus, no nausea appreciate surgical and GI consultations will defer diet and further work up to GI and surgery afebrile, vitals stable abdomen soft, ND, hypoactive BS
[2017-12-13] MEDS ORDERED: METOPROLOL TARTRATE 1 MG/ML VIAL ONE ×2 (21:34→21:50)
[2017-12-13] MEDS ORDERED: NURSING VERBAL MED ORDER ONE ×2 (21:45→23:45)
[2017-12-13] MEDS ORDERED: METOPROLOL TARTRATE 1 MG/ML VIAL IV STA (21:50)
[2017-12-13] MEDS ORDERED: DILTIAZEM HCL 5 MG/ML 5 ML VIAL ONE (21:56)
[2017-12-13] MEDS ORDERED: DIGOXIN INJ 500 MCG/2 ML AMP ONE (22:06)
[2017-12-13 22:08] LABS: HEMATOCRIT 35.8 % (37-47); HEMOGLOBIN 11.5 g/dL (12.0-16.0); MEAN CELL VOLUME 87.5 fL (80-100); MEAN CORPUSCULAR HEMOGLOBIN 28.1 pg (25-34); MEAN CORPUSCULAR HGB CONC 32.1 g/dl (32-36); MEAN PLATELET VOLUME 9.9 fL (7.4-10.4); PLATELET COUNT 116 K/uL (130-400); RED CELL DISTRIBUTION WIDTH CV 16.2 % (11.5-14.5); RED CELL DISTRIBUTION WIDTH SD 51.9 fL (36.4-46.3); WHITE BLOOD COUNT 79.59 K/uL (4.8-10.8)
[2017-12-13] MEDS ORDERED: AMIODARONE IV BOLUS / DRIP IV STA (22:21)
[2017-12-13 22:26] LABS: CALCIUM 8.6 mg/dl (8.5-10.1); CREATININE 0.68 mg/dl (0.60-1.20); POTASSIUM 4.1 mmol/L (3.5-5.1)
[2017-12-13] MEDS ORDERED: AMIODARONE / D5W 100 ML IV SCH (22:45)
[2017-12-13] MEDS ORDERED: AMIODARONE / D5W 200 ML IV SCH (23:00)
[2017-12-14] VITALS (7 sets, daily range): BP systolic 97–156; BP diastolic 57–94; PULSE 76–86; TEMP 36.5–36.8; O2SAT 94–99
[2017-12-14] MEDS: PIPERACILL/TAZOBAC IV 3.375 GM in DEXTROSE 5% 100ML 100 ML IV SCH (02:10)
[2017-12-14] MEDS ORDERED: AMIODARONE / D5W 200 ML IV SCH (05:00)
[2017-12-14 07:36] LABS: ALT/SGPT 50 U/L (12-78); AST/SGOT 58 U/L (15-37); BLOOD UREA NITROGEN 11 mg/dl (7-18); CALCIUM 8.2 mg/dl (8.5-10.1); CARBON DIOXIDE 27 mmol/L (21-32); CREATININE 0.61 mg/dl (0.60-1.20); GLUCOSE 93 mg/dl (70-99); POTASSIUM 4.1 mmol/L (3.5-5.1); SODIUM 140 mmol/L (136-145)
[2017-12-14 07:47] LABS: ALKALINE PHOSPHATASE 154 U/L (45-117); TOTAL PROTEIN 6.4 gm/dl (6.4-8.2)
[2017-12-14] MEDS: NSS + 20MEQ KCL 1000ML 1,000 ML IV SCH ×2 (08:38→20:25)
[2017-12-14 08:39] LABS: HEMOGLOBIN 10.3 g/dL (12.0-16.0); MEAN CELL VOLUME 88.4 fL (80-100); MEAN CORPUSCULAR HEMOGLOBIN 28.5 pg (25-34); MEAN CORPUSCULAR HGB CONC 32.2 g/dl (32-36); MEAN PLATELET VOLUME 10.2 fL (7.4-10.4); PLATELET COUNT 95 K/uL (130-400); RED CELL DISTRIBUTION WIDTH CV 16.2 % (11.5-14.5); RED CELL DISTRIBUTION WIDTH SD 52.1 fL (36.4-46.3); WHITE BLOOD COUNT 69.93 K/uL (4.8-10.8)
--- NOTE | 2017-12-14 11:57 | Surgery Progress Note ---
Surgery Progress Note Date of Service Dec 14, 2017. Subjective + feeling well pt is doing better, passed gas and BM, pt denies abdominal pain, no nausea, no vomiting, she tolerated clear diet, pt has leukemia in the past, pt has high WBC Objective Vital Signs: Date Time Temp Pulse Resp B/P (MAP) Pulse Ox O2 Delivery O2 Flow Rate FiO2 12/14/17 07:00 36.5 77 18 137/63 (87) 99 Nasal Cannula 2.0 12/14/17 05:56 36.7 86 17 125/79 (94) 94 Nasal Cannula 4.0 12/14/17 04:00 Nasal Cannula 2.0 12/14/17 00:18 36.6 81 17 97/57 (70) 96 Nasal Cannula 4.0 12/14/17 00:00 Nasal Cannula 2.0 12/13/17 22:17 157 12/13/17 22:15 156 9 100/68 (80) 12/13/17 22:10 156 14 96/62 (73) 96 12/13/17 22:05 156 12 91/65 (76) 95 12/13/17 22:01 163 120/77 12/13/17 22:00 200 150/59 12/13/17 22:00 81 23 120/77 (87) 90 12/13/17 21:55 82 16 143/65 (79) 92 12/13/17 21:52 84 15 132/65 (74) 91 12/13/17 21:48 84 22 129/69 (83) 89 12/13/17 21:45 200 15 96 12/13/17 21:36 195 8 150/59 (83) 92 12/13/17 21:30 36.5 90 18 97 12/13/17 21:13 90 132/73 (92) 12/13/17 21:04 171 139/71 (93) 97 Room Air 12/13/17 20:50 164 137/79 (98) 98 Room Air 12/13/17 15:43 Room Air 12/13/17 15:00 36.5 78 18 121/70 (87) 93 Room Air 12/13/17 14:09 93 Room Air General Appearance: WD/WN, no apparent distress Head: normocephalic Neck: supple, no JVD Respiratory/Chest: chest non-tender, lungs clear Cardiovascular: regular rate, rhythm, no edema, no gallop Abdomen: normal bowel sounds, non tender, non distended, soft Extremities: normal range of motion, non-tender, normal inspection Laboratory Results: Results Past 24 Hours Test 12/13/17 21:39 12/14/17 06:49 Range/Units White Blood Count 79.59 69.93 4.8-10.8 K/uL Red Blood Count 4.09 3.62 4.2-5.4 M/uL Hemoglobin 11.5 10.3 12.0-16.0 g/dL Hematocrit 35.8 32.0 37-47 % Mean Corpuscular Volume 87.5 88.4 80-100 fL Mean Corpuscular Hemoglobin 28.1 28.5 25-34 pg Mean Corpuscular Hemoglobin Concent 32.1 32.2 32-36 g/dl Platelet Count 116 95 130-400 K/uL Mean Platelet Volume 9.9 10.2 7.4-10.4 fL RDW Standard Deviation 51.9 52.1 36.4-46.3 fL RDW Coefficient of Variation 16.2 16.2 11.5-14.5 % Neutrophils % (Manual) 7.5 6.1 % Lymphocytes % (Manual) 89.0 91.8 % Monocytes % (Manual) 3.5 1.3 % Neutrophils # (Manual) 5.97 4.27 1.4-6.5 K/uL Total Absolute Neutrophils 5.97 4.27 1.4-6.5 K/uL Lymphocytes # (Manual) 70.84 64.20 1.2-3.4 K/uL Total Absolute Lymphocytes 70.84 64.20 1.2-3.4 K/uL Monocytes # (Manual) 2.79 0.91 0.11-0.59 K/uL Smudge Cells PRESENT PRESENT Ovalocytes 1+ Sodium Level 140 140 136-145 mmol/L Potassium Level 4.1 4.1 3.5-5.1 mmol/L Chloride Level 107 110 98-107 mmol/L Carbon Dioxide Level 24 27 21-32 mmol/L Anion Gap 8.0 3.0 3-11 mmol/L Blood Urea Nitrogen 10 11 7-18 mg/dl Creatinine 0.68 0.61 0.60-1.20 mg/dl Est Creatinine Clear Calc Drug Dose 83.4 95.1 ml/min Estimated GFR () 106.4 110.3 Estimated GFR (Non- 91.8 95.1 BUN/Creatinine Ratio 14.8 17.7 10-20 Random Glucose 98 93 70-99 mg/dl Calcium Level 8.6 8.2 8.5-10.1 mg/dl Magnesium Level 2.2 2.2 1.8-2.4 mg/dl Basophils % (Manual) 0.4 % Metamyelocytes % 0.4 % Basophils # (Manual) 0.28 0-0.2 K/uL Metamyelocytes # 0.28 0-0 K/uL Platelet Estimate DECREASED Anisocytosis PRESENT Total Bilirubin 0.4 0.2-1 mg/dl Direct Bilirubin < 0.1 0-0.2 mg/dl Aspartate Amino Transf (AST/SGOT) 58 15-37 U/L Alanine Aminotransferase (ALT/SGPT) 50 12-78 U/L Alkaline Phosphatase 154 45-117 U/L Total Protein 6.4 6.4-8.2 gm/dl Albumin 3.0 3.4-5.0 gm/dl Assessment & Plan pt is doing fine, passed gas and BM, continue treatment. full liquid diet will F/U
[2017-12-14] MEDS: PANTOprazole INJ 40 MG in SYRINGE 0 ML IV SCH (12:09)
--- NOTE | 2017-12-14 13:52 | CARDIOLOGY CONSULTATION ---
DATE OF CONSULTATION: 12/14/2017 PERTINENT HISTORY: Mrs. Claudio is a 67-year-old female admitted on the 13 of December with a small-bowel obstruction. The patient developed supraventricular tachycardia last evening; therefore, this consultation was ordered. The patient was in her usual state of health until she developed abdominal discomfort and nausea, prompting evaluation in the Emergency Room. She was diagnosed with a small-bowel obstruction and admitted to medical floor. Unfortunately, her obstruction resolved spontaneously. Late last evening, the patient developed an episode of a typical sustained palpitations. As they persisted, she contacted her nurse. An EKG was performed which revealed a supraventricular tachycardia. The patient was transferred to the telemetry unit and started on intravenous amiodarone, digoxin, and metoprolol. Unfortunately, she spontaneously converted to sinus rhythm. Total duration of her dysrhythmia was approximately 60 minutes. The patient explains that she has had these episodes of palpitations since her teenage years. She has noticed an increase in the frequency and duration of her sustained palpitations. These episodes typically last for 5-20 minutes and occur as frequently as once weekly, to as low as once every 6 months. She is usually able to break the tachycardia with deep breathing or the use of p.r.n. metoprolol. We have had a long discussion regarding the use of vagal maneuvers and/or invasive management of her tachycardia. Currently, the patient is resting comfortably in bed without complaints. PAST MEDICAL HISTORY: 1. Chronic lymphocytic leukemia -- 2010. 2. Hypogammaglobulinemia. 3. Recurrent small bowel obstructions. 4. Paroxysmal supraventricular tachycardia. 5. Leg melanoma -- left lower extremity -- age 33. 6. Osteoporosis. 7. GERD. 8. Migraine headaches. 9. Diverticulitis. MEDICATIONS: 1. Amiodarone drip. 2. Protonix drip. 3. Piperacillin 3.375 mg IV q. 8 hours. ALLERGIES: 1. ALLOPURINOL. 2. PREDNISONE. 3. SULFA. 4. VALACYCLOVIR. SOCIAL HISTORY: The patient is and lives with her . Does not use tobacco or alcohol. FAMILY HISTORY: No early coronary artery disease. REVIEW OF SYSTEMS: A 10-point review of systems is negative except for that described above. PHYSICAL EXAMINATION: GENERAL: This is a well-developed, well-nourished white female in no acute distress. VITAL SIGNS: Blood pressure is 137/63 with a regular pulse of 77. Respiratory rate is 18 and the patient is afebrile at 36.5 degrees Celsius. Saturations 99% on 2 liters nasal cannula. HEENT: Negative. NECK: Supple with full carotid upstrokes. There are no carotid bruits. Jugular venous pressure is flat at 90 degrees. There is no thyromegaly. CARDIOVASCULAR: Reveals a regular rhythm with normal S1 and S2. No S3, S4, or murmurs are noted. LUNGS: Clear without rales, rhonchi, or wheezes. ABDOMEN: Soft, nontender without bruits. EXTREMITIES: Reveal intact radial artery pulses bilaterally. There is no peripheral edema. DATA: CBC notes hemoglobin of 10.3, hematocrit 33.0, white count 69.93, and the platelet count 95,000. Electrolytes note a sodium of 140, potassium 4.1, chloride 110, bicarbonate 27, BUN 11, creatinine 0.6, and glucose of 93. EKG noted a supraventricular tachycardia with a left axis deviation at 21:26, last evening. seed pelleter is now benign. IMPRESSION: Mrs. Claudio experienced a typical episode of her supraventricular tachycardia, last evening. This eventually converted to sinus rhythm with the use of numerous intravenous agents as described above. We have reviewed the use of vagal maneuvers. Would not recommend long-term use of amiodarone for this dysrhythmia, especially realizing her age. Would simply go back to her p.r.n. use of metoprolol. PLAN: 1. Would discontinue amiodarone. 2. Vagal maneuvers reviewed. 3. Metoprolol p.r.n. tachycardia. 4. Stable for transfer to the floor.
--- NOTE | 2017-12-14 14:56 | Gastroenterology Progress Note ---
Progress Note Date of Service: Dec 14, 2017 Subjective Pt evaluation today including: conversation w/ patient, conversation w/ family (), physical exam, chart review, lab review, review of studies, review of inpatient medication list CC f/u SBO HPI NO abd pain. Passing flatus and stools. NO n/v. Wants to go home. Review of Systems Respiratory: No shortness of breath Cardiac: No chest pain Medications Current Inpatient Medications Medications (Trade) Dose Ordered Sig/Mary Route Start Time Stop Time Status Last Admin Dose Admin Ondansetron HCl (Zofran Inj) 4 mg Q6H PRN IV 12/13/17 03:00 01/12/18 02:59 Pantoprazole Sodium 40 mg/ Syringe 10 ml @ 5 mls/min DAILY@11 IV 12/13/17 11:00 12/17/17 10:59 12/14/17 12:09 5 MLS/MIN Morphine Sulfate (MoRPHine SULFATE INJ) 2 mg Q2H PRN IV 12/13/17 03:00 12/27/17 02:59 Morphine Sulfate (MoRPHine SULFATE INJ) 4 mg Q2H PRN IV 12/13/17 03:00 12/27/17 02:59 Potassium Chloride/Sodium Chloride 1,000 ml @ 100 mls/hr Q10H IV 12/13/17 05:00 01/12/18 04:59 12/14/17 08:38 100 MLS/HR Ioversol (Optiray 320) 100 ml UD PRN IV 12/13/17 03:30 12/17/17 03:29 Acetaminophen 100 ml @ 400 mls/hr Q8H PRN IV 12/13/17 11:45 01/12/18 11:44 12/13/17 12:04 400 MLS/HR Objective Vital Signs Date Time Temp Pulse Resp B/P (MAP) Pulse Ox O2 Delivery O2 Flow Rate FiO2 12/14/17 13:33 36.5 77 18 99 2.0 12/14/17 08:00 Room Air 12/14/17 07:00 36.5 77 18 137/63 (87) 99 Nasal Cannula 2.0 12/14/17 05:56 36.7 86 17 125/79 (94) 94 Nasal Cannula 4.0 12/14/17 04:00 Nasal Cannula 2.0 12/14/17 00:18 36.6 81 17 97/57 (70) 96 Nasal Cannula 4.0 12/14/17 00:00 Nasal Cannula 2.0 12/13/17 22:17 157 12/13/17 22:15 156 9 100/68 (80) 12/13/17 22:10 156 14 96/62 (73) 96 12/13/17 22:05 156 12 91/65 (76) 95 12/13/17 22:01 163 120/77 12/13/17 22:00 200 150/59 12/13/17 22:00 81 23 120/77 (87) 90 12/13/17 21:55 82 16 143/65 (79) 92 12/13/17 21:52 84 15 132/65 (74) 91 12/13/17 21:48 84 22 129/69 (83) 89 12/13/17 21:45 200 15 96 12/13/17 21:36 195 8 150/59 (83) 92 12/13/17 21:30 36.5 90 18 97 12/13/17 21:13 90 132/73 (92) 12/13/17 21:04 171 139/71 (93) 97 Room Air 12/13/17 20:50 164 137/79 (98) 98 Room Air 12/13/17 15:43 Room Air 12/13/17 15:00 36.5 78 18 121/70 (87) 93 Room Air Physical Exam General Appearance: WD/WN, no apparent distress Respiratory/Chest: lungs clear, no respiratory distress Cardiovascular: regular rate, rhythm, no edema Abdomen: normal bowel sounds, non tender, soft, no organomegaly, no pulsatile mass Neurologic/Psych: alert, normal mood/affect, oriented x 3 Skin: warm/dry Laboratory Results Last 24 Hours Test 12/13/17 21:39 12/14/17 06:49 White Blood Count 79.59 K/uL 69.93 K/uL Red Blood Count 4.09 M/uL 3.62 M/uL Hemoglobin 11.5 g/dL 10.3 g/dL Hematocrit 35.8 % 32.0 % Mean Corpuscular Volume 87.5 fL 88.4 fL Mean Corpuscular Hemoglobin 28.1 pg 28.5 pg Mean Corpuscular Hemoglobin Concent 32.1 g/dl 32.2 g/dl Platelet Count 116 K/uL 95 K/uL Mean Platelet Volume 9.9 fL 10.2 fL RDW Standard Deviation 51.9 fL 52.1 fL RDW Coefficient of Variation 16.2 % 16.2 % Neutrophils % (Manual) 7.5 % 6.1 % Lymphocytes % (Manual) 89.0 % 91.8 % Monocytes % (Manual) 3.5 % 1.3 % Neutrophils # (Manual) 5.97 K/uL 4.27 K/uL Total Absolute Neutrophils 5.97 K/uL 4.27 K/uL Lymphocytes # (Manual) 70.84 K/uL 64.20 K/uL Total Absolute Lymphocytes 70.84 K/uL 64.20 K/uL Monocytes # (Manual) 2.79 K/uL 0.91 K/uL Smudge Cells PRESENT PRESENT Ovalocytes 1+ Sodium Level 140 mmol/L 140 mmol/L Potassium Level 4.1 mmol/L 4.1 mmol/L Chloride Level 107 mmol/L 110 mmol/L Carbon Dioxide Level 24 mmol/L 27 mmol/L Anion Gap 8.0 mmol/L 3.0 mmol/L Blood Urea Nitrogen 10 mg/dl 11 mg/dl Creatinine 0.68 mg/dl 0.61 mg/dl Est Creatinine Clear Calc Drug Dose 83.4 ml/min 95.1 ml/min Estimated GFR () 106.4 110.3 Estimated GFR (Non- 91.8 95.1 BUN/Creatinine Ratio 14.8 17.7 Random Glucose 98 mg/dl 93 mg/dl Calcium Level 8.6 mg/dl 8.2 mg/dl Magnesium Level 2.2 mg/dl 2.2 mg/dl Basophils % (Manual) 0.4 % Metamyelocytes % 0.4 % Basophils # (Manual) 0.28 K/uL Metamyelocytes # 0.28 K/uL Platelet Estimate DECREASED Anisocytosis PRESENT Total Bilirubin 0.4 mg/dl Direct Bilirubin < 0.1 mg/dl Aspartate Amino Transf (AST/SGOT) 58 U/L Alanine Aminotransferase (ALT/SGPT) 50 U/L Alkaline Phosphatase 154 U/L Total Protein 6.4 gm/dl Albumin 3.0 gm/dl Assessment and Plan SBO--recurrent---Pt wants to go home. If she tolerates full liquid diet she could go home but told her and needs outpt workup to include studies which could include SBFT, [place] to TI, and capsule endscopy. If she does go home she is instructed to call Dr Martínez to make appointment and to be on low fiber diet for week or two at home then advance as tolerated. If she does not tolerate full liquids then keep in hospital and do SBFT saturday anemia--no evidence of active GI bleeding abd pain secondary to SBO resolved elevated LFTs--outpt workup.
--- NOTE | 2017-12-14 15:45 | Progress Note ---
Subjective Date of Service: Dec 14, 2017. Subjective Pt evaluation today including: conversation w/ patient, physical exam, lab review, review of studies, conversation w/ home energy consultant, review of inpatient medication list Pain: resolved PO Intake: advanced to full liquids Voiding: no voiding problems episode of SVT over night, transferred down to telemetry, SVT resolved on Amiodarone d/w Dr. Dumont this AM, he feels that SVT has been occurring for years, reviewed vagal maneuvers and metoprolol PRN patient's abdomen is soft, ND, feeling better, tolerating clears appreciate note from Dr. Henley, needs to have further work up, can leave if she tolerates full liquids discussed with her that I would keep until tomorrow Problem List Medical Problems: (1) Diffuse abdominal pain Status: Acute (2) SBO (small bowel obstruction) Status: Acute Review of Systems All Other Systems: Reviewed and Negative Medications Current Inpatient Medications Medications (Trade) Dose Ordered Sig/Mary Route Start Time Stop Time Status Last Admin Dose Admin Ondansetron HCl (Zofran Inj) 4 mg Q6H PRN IV 12/13/17 03:00 01/12/18 02:59 Pantoprazole Sodium 40 mg/ Syringe 10 ml @ 5 mls/min DAILY@11 IV 12/13/17 11:00 12/17/17 10:59 12/14/17 12:09 5 MLS/MIN Morphine Sulfate (MoRPHine SULFATE INJ) 2 mg Q2H PRN IV 12/13/17 03:00 12/27/17 02:59 Morphine Sulfate (MoRPHine SULFATE INJ) 4 mg Q2H PRN IV 12/13/17 03:00 12/27/17 02:59 Potassium Chloride/Sodium Chloride 1,000 ml @ 100 mls/hr Q10H IV 12/13/17 05:00 01/12/18 04:59 12/14/17 08:38 100 MLS/HR Ioversol (Optiray 320) 100 ml UD PRN IV 12/13/17 03:30 12/17/17 03:29 Acetaminophen 100 ml @ 400 mls/hr Q8H PRN IV 12/13/17 11:45 01/12/18 11:44 12/13/17 12:04 400 MLS/HR Objective Vital Signs Date Time Temp Pulse Resp B/P (MAP) Pulse Ox O2 Delivery O2 Flow Rate FiO2 1/13/18 14:00 36.5 76 18 156/67 (96) 97 Room Air 12/14/17 13:33 36.5 77 18 99 2.0 12/14/17 08:00 Room Air 12/14/17 07:00 36.5 77 18 137/63 (87) 99 Nasal Cannula 2.0 12/14/17 05:56 36.7 86 17 125/79 (94) 94 Nasal Cannula 4.0 12/14/17 04:00 Nasal Cannula 2.0 12/14/17 00:18 36.6 81 17 97/57 (70) 96 Nasal Cannula 4.0 12/14/17 00:00 Nasal Cannula 2.0 12/13/17 22:17 157 12/13/17 22:15 156 9 100/68 (80) 12/13/17 22:10 156 14 96/62 (73) 96 12/13/17 22:05 156 12 91/65 (76) 95 12/13/17 22:01 163 120/77 12/13/17 22:00 200 150/59 12/13/17 22:00 81 23 120/77 (87) 90 12/13/17 21:55 82 16 143/65 (79) 92 12/13/17 21:52 84 15 132/65 (74) 91 12/13/17 21:48 84 22 129/69 (83) 89 12/13/17 21:45 200 15 96 12/13/17 21:36 195 8 150/59 (83) 92 12/13/17 21:30 36.5 90 18 97 12/13/17 21:13 90 132/73 (92) 12/13/17 21:04 171 139/71 (93) 97 Room Air 12/13/17 20:50 164 137/79 (98) 98 Room Air 12/13/17 15:43 Room Air Physical Exam General Appearance: WD/WN, no apparent distress Eyes: normal inspection, EOMI, sclerae normal Respiratory/Chest: chest non-tender, lungs clear, normal breath sounds, no respiratory distress, no accessory muscle use Cardiovascular: regular rate, rhythm, no edema, no gallop, no JVD, no murmur Abdomen: normal bowel sounds, non tender, soft, no organomegaly Extremities: normal range of motion, non-tender, normal inspection, no pedal edema, no calf tenderness, pelvis stable Neurologic/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 tested, no motor/sensory deficits, alert, normal mood/affect, oriented x 3 Skin: normal color, warm/dry, no rash Lymphatic: no adenopathy Laboratory Results Last 24 Hours Test 12/13/17 21:39 12/14/17 06:49 White Blood Count 79.59 K/uL 69.93 K/uL Red Blood Count 4.09 M/uL 3.62 M/uL Hemoglobin 11.5 g/dL 10.3 g/dL Hematocrit 35.8 % 32.0 % Mean Corpuscular Volume 87.5 fL 88.4 fL Mean Corpuscular Hemoglobin 28.1 pg 28.5 pg Mean Corpuscular Hemoglobin Concent 32.1 g/dl 32.2 g/dl Platelet Count 116 K/uL 95 K/uL Mean Platelet Volume 9.9 fL 10.2 fL RDW Standard Deviation 51.9 fL 52.1 fL RDW Coefficient of Variation 16.2 % 16.2 % Neutrophils % (Manual) 7.5 % 6.1 % Lymphocytes % (Manual) 89.0 % 91.8 % Monocytes % (Manual) 3.5 % 1.3 % Neutrophils # (Manual) 5.97 K/uL 4.27 K/uL Total Absolute Neutrophils 5.97 K/uL 4.27 K/uL Lymphocytes # (Manual) 70.84 K/uL 64.20 K/uL Total Absolute Lymphocytes 70.84 K/uL 64.20 K/uL Monocytes # (Manual) 2.79 K/uL 0.91 K/uL Smudge Cells PRESENT PRESENT Ovalocytes 1+ Sodium Level 140 mmol/L 140 mmol/L Potassium Level 4.1 mmol/L 4.1 mmol/L Chloride Level 107 mmol/L 110 mmol/L Carbon Dioxide Level 24 mmol/L 27 mmol/L Anion Gap 8.0 mmol/L 3.0 mmol/L Blood Urea Nitrogen 10 mg/dl 11 mg/dl Creatinine 0.68 mg/dl 0.61 mg/dl Est Creatinine Clear Calc Drug Dose 83.4 ml/min 95.1 ml/min Estimated GFR () 106.4 110.3 Estimated GFR (Non- 91.8 95.1 BUN/Creatinine Ratio 14.8 17.7 Random Glucose 98 mg/dl 93 mg/dl Calcium Level 8.6 mg/dl 8.2 mg/dl Magnesium Level 2.2 mg/dl 2.2 mg/dl Basophils % (Manual) 0.4 % Metamyelocytes % 0.4 % Basophils # (Manual) 0.28 K/uL Metamyelocytes # 0.28 K/uL Platelet Estimate DECREASED Anisocytosis PRESENT Total Bilirubin 0.4 mg/dl Direct Bilirubin < 0.1 mg/dl Aspartate Amino Transf (AST/SGOT) 58 U/L Alanine Aminotransferase (ALT/SGPT) 50 U/L Alkaline Phosphatase 154 U/L Total Protein 6.4 gm/dl Albumin 3.0 gm/dl Assessment and Plan 67 yo female with recurrent small bowel obstructions, partial, now with some inflammation of the small bowel on CT imaging - partial SBO: resolved with NPO and NGT, tube pulled on 12/13 abdomen soft, ND, + BS, advance to full liquids appreciate note from GI, needs further work up with SBFT, colonoscopy to the TI, possible capsule endoscopy she can go home tomorrow if tolerating full liquids if she cannot tolerate full liquids, then stay for SBFT on Saturday - SVT, paroxysmal: has been occurring for years typically resolves with vagal maneuver or she uses Lopressor in NSR this AM transfer off tele, stop Amiodarone possible d/c to home tomorrow AM if tolerating full liquids for the next two meals
[2017-12-15] MEDS: NSS + 20MEQ KCL 1000ML 1,000 ML IV SCH (06:06)
[2017-12-15 06:28] LABS: HEMATOCRIT 31.7 % (37-47); MEAN CELL VOLUME 87.1 fL (80-100); MEAN CORPUSCULAR HEMOGLOBIN 27.5 pg (25-34); MEAN CORPUSCULAR HGB CONC 31.5 g/dl (32-36); MEAN PLATELET VOLUME 10.4 fL (7.4-10.4); PLATELET COUNT 107 K/uL (130-400); RED CELL DISTRIBUTION WIDTH CV 15.6 % (11.5-14.5); RED CELL DISTRIBUTION WIDTH SD 49.3 fL (36.4-46.3)
[2017-12-15 06:41] LABS: ALKALINE PHOSPHATASE 146 U/L (45-117); ALT/SGPT 57 U/L (12-78); AST/SGOT 76 U/L (15-37); BLOOD UREA NITROGEN 7 mg/dl (7-18); CALCIUM 8.4 mg/dl (8.5-10.1); CARBON DIOXIDE 24 mmol/L (21-32); CREATININE 0.57 mg/dl (0.60-1.20); GLUCOSE 83 mg/dl (70-99); POTASSIUM 3.7 mmol/L (3.5-5.1); SODIUM 141 mmol/L (136-145); TOTAL PROTEIN 6.2 gm/dl (6.4-8.2)
--- NOTE | 2017-12-15 07:56 | Discharge Instructions ---
Discharge Instructions Date of Service Dec 15, 2017. Admission Reason for Admission: Partial small bowel obstruction Discharge Discharge Diagnosis / Problem: Partial SBO, CLL Discharge Goals Goal(s): Decrease discomfort, Improve function, Diagnostic testing (per gastroenterology) Activity Recommendations Activity Limitations: resume your previous activity . Instructions / Follow-Up Instructions / Follow-Up Medications: no changes - Partial small bowel obstruction, enteritis you can go home since you are tolerating full liquid diet Dr. Henley recommends following a low fiber diet for 2 weeks and then you can advance you need to schedule an appointment with Dr. Martínez as soon as possible recommended work up per GI is a small bowel follow through study, colonoscopy with examination of terminal ileum, possible capsule endoscopy you have had recurrent small bowel obstructions, it is very important that you follow up for work up - Supraventricular tachycardia (SVT) continue to follow vagal maneuvers, use Metoprolol PRN for palpitations FOLLOW UP - please call Dr. Martníez's office on Saturday or Saturday to schedule a follow up appointment, Current Hospital Diet Patient's current hospital diet: Full Liquid Diet Discharge Diet Recommended Diet: Low Fiber Diet (for 2 weeks) Pending Studies Studies pending at discharge: no Medical Emergencies . Who to Call and When: Medical Emergencies: If at any time you feel your situation is an emergency, please call 911 immediately. . Non-Emergent Contact Non-Emergency issues call your: Primary Care Provider, Director Investor Relations Call Non-Emergent contact if: you have any medication questions . . "Provider Documentation" section prepared by Pio Ferrera. . VTE Core Measure Inpt VTE Proph given/why not?: SCD's [place] Drug Monitoring Program Search Results: no issues identified
[2017-12-15 08:03] VITALS: BP 155/85; PULSE 70; TEMP 36.3; O2SAT 97
[2017-12-15 10:11] VITALS: BP 155/85; PULSE 70; TEMP 36.3; O2SAT 97
--- NOTE | 2017-12-15 10:20 | Surgery Progress Note ---
Surgery Progress Note Date of Service Dec 15, 2017. Subjective + feeling well doing fine, no abdominal pain, no nausea, no vomiting, passed gas, she tolerated clear diet, Objective Vital Signs: Date Time Temp Pulse Resp B/P (MAP) Pulse Ox O2 Delivery O2 Flow Rate FiO2 12/15/17 10:11 36.3 70 17 97 Nasal Cannula 12/15/17 08:03 36.3 70 17 155/85 (108) 97 Room Air 12/15/17 08:00 Room Air 12/15/17 00:00 Room Air 12/14/17 23:13 36.8 86 17 154/94 (114) 98 Room Air 12/14/17 16:00 97 Room Air 12/14/17 14:00 36.5 76 18 156/67 (96) 97 Room Air 12/14/17 13:33 36.5 77 18 99 2.0 General Appearance: WD/WN, no apparent distress Head: normocephalic Neck: supple, no JVD Respiratory/Chest: chest non-tender, lungs clear Cardiovascular: regular rate, rhythm, no edema, no gallop Abdomen: normal bowel sounds, non tender, non distended, soft Extremities: normal range of motion, non-tender, normal inspection Laboratory Results: Results Past 24 Hours Test 12/15/17 05:20 Range/Units White Blood Count 75.90 4.8-10.8 K/uL Red Blood Count 3.64 4.2-5.4 M/uL Hemoglobin 10.0 12.0-16.0 g/dL Hematocrit 31.7 37-47 % Mean Corpuscular Volume 87.1 80-100 fL Mean Corpuscular Hemoglobin 27.5 25-34 pg Mean Corpuscular Hemoglobin Concent 31.5 32-36 g/dl Platelet Count 107 130-400 K/uL Mean Platelet Volume 10.4 7.4-10.4 fL RDW Standard Deviation 49.3 36.4-46.3 fL RDW Coefficient of Variation 15.6 11.5-14.5 % Neutrophils % (Manual) 3.4 % Lymphocytes % (Manual) 95.7 % Monocytes % (Manual) 0.9 % Neutrophils # (Manual) 2.58 1.4-6.5 K/uL Total Absolute Neutrophils 2.58 1.4-6.5 K/uL Lymphocytes # (Manual) 72.64 1.2-3.4 K/uL Total Absolute Lymphocytes 72.64 1.2-3.4 K/uL Monocytes # (Manual) 0.68 0.11-0.59 K/uL Smudge Cells PRESENT Platelet Estimate DECREASED Sodium Level 141 136-145 mmol/L Potassium Level 3.7 3.5-5.1 mmol/L Chloride Level 111 98-107 mmol/L Carbon Dioxide Level 24 21-32 mmol/L Anion Gap 6.0 3-11 mmol/L Blood Urea Nitrogen 7 7-18 mg/dl Creatinine 0.57 0.60-1.20 mg/dl Est Creatinine Clear Calc Drug Dose 101.8 ml/min Estimated GFR () 112.7 Estimated GFR (Non- 97.3 BUN/Creatinine Ratio 12.9 10-20 Random Glucose 83 70-99 mg/dl Calcium Level 8.4 8.5-10.1 mg/dl Magnesium Level 2.1 1.8-2.4 mg/dl Total Bilirubin 0.3 0.2-1 mg/dl Direct Bilirubin < 0.1 0-0.2 mg/dl Aspartate Amino Transf (AST/SGOT) 76 15-37 U/L Alanine Aminotransferase (ALT/SGPT) 57 12-78 U/L Alkaline Phosphatase 146 45-117 U/L Total Protein 6.2 6.4-8.2 gm/dl Albumin 3.0 3.4-5.0 gm/dl Globulin 3.2 2.5-4.0 gm/dl Albumin/Globulin Ratio 0.9 0.9-2 Assessment & Plan pt is doing fine, passed gas and BM, continue treatment. full liquid diet will F/U 12/15/2017 doing fine, pt can be D/C home to day the care instruction was given, F/U Dr. Gold, 2 weeks [phone] pt is doing fine, passed gas and BM, continue treatment. full liquid diet will F/U
--- NOTE | 2017-12-15 10:30 | Discharge Summary ---
Discharge Summary Date of Service Dec 15, 2017. Discharge Summary Admission Date: Dec 13, 2017 at 02:58 Discharge Date: Dec 15, 2017 Discharge Disposition: Home Principal Diagnosis: Partial small bowel obstruction Problems/Secondary Diagnoses: Small bowel enteritis Paroxysmal SVT Immunizations: Have You Had Influenza Vaccine: Yes History of Tetanus Vaccine?: UTD History of Pneumococcal: No History of Hepatitis B Vaccine: No Procedures: none Consultations: General surgery Gastroenterology Cardiology Medication Reconciliation Continued Medications: Acetaminophen (Tylenol) 500 Mg Tab 1000 MG PO DIRECTED PRN for Pain, TAB Lactobacillus Acidophilus (Lactinex Granules) 1 Gm Pkt 1 GM PO TID Metoprolol Tartrate (Lopressor) 25 Mg Tab 25 MG PO DAILY PRN for RACING HEART, #90 Multivitamins/Minerals (Mvi With Minerals) Tab 1 TAB PO DAILY, TAB Tretinoin (Tretinoin) 15 Gm Gel 1 APPLN TOP HS, #45 Discharge Exam Patient feeling well, tolerating full liquids, no nausea/vomiting, + flatus. Abdomen flat, no pain. Discussed plan to follow up closely with GI for further testing, all questions answered. Review of Systems: Constitutional: No fever, No chills, No sweats, No weight loss, No weakness , No fatigue, No problem reported Eyes: No worsening of vision, No eye pain, No redness, No discharge, No diplopia, No problem reported ENT: No hearing loss, No unusual epistaxis, No nasal symptoms, No sore throat, No tinnitus, No dental problems, No trouble swallowing, No problem reported Respiratory: No cough, No sputum, No wheezing, No shortness of breath, No dyspnea on exertion, No dyspnea at rest, No hemoptysis, No problem reported Cardiovascular: No chest pain, No orthopnea, No PND, No edema, No claudication, No palpitations, No problem reported Abdomen: + constipation, No pain, No nausea, No vomiting, No diarrhea, No GI bleeding, No problem reported Musculoskeletal: No joint pain, No muscle pain, No swelling, No calf pain, No problem reported Genitourinary - Female: No dysuria, No urinary frequency, No urinary urgency , No urinary incontinence, No urinary retention, No hematuria Neurologic: No memory loss, No paralysis, No weakness, No numbness/tingling , No vertigo, No balance problems, No problem reported Psychiatric: No depression symptoms, No anhedonism, No anxiety, No insomnia , No substance abuse, No problem reported Endocrine: No fatigue, No excessive thirst, No excessive urination, No problem reported Hematologic / Lymphatic: No abnormal bleeding/bruising, No clotting problems , No swollen lymph nodes, No night sweats, No problem reported Integumentary: No rash, No itch, No new/changing skin lesions, No color change, No bleeding, No problem reported Physical Exam: General Appearance: WD/WN, no apparent distress Eyes: normal inspection, EOMI, sclerae normal ENT: normal ENT inspection, hearing grossly normal, pharynx normal Neck: supple, no adenopathy, no JVD, trachea midline Respiratory/Chest: chest non-tender, lungs clear, normal breath sounds, no respiratory distress, no accessory muscle use Cardiovascular: regular rate, rhythm, no edema, no gallop, no JVD, no murmur , normal peripheral pulses Abdomen / GI: normal bowel sounds, non tender, soft, no organomegaly Extremities: normal inspection, no calf tenderness, normal capillary refill , no pedal edema, normal range of motion, pelvis stable Neurologic/Psychiatric: division roadmaster II-XII nml as tested, no motor/sensory deficits , alert, normal mood/affect, normal reflexes, oriented x 3 Skin: normal color, warm/dry, no rash Lymphatic: no adenopathy Hospital Course 67 yo female with recurrent small bowel obstructions, partial, now with some inflammation of the small bowel on CT imaging - partial SBO: resolved with NPO and NGT, tube pulled on 12/13 abdomen soft, ND, + BS, advance to full liquids, tolerated full liquids for 3 meals, no vomiting appreciate note from GI, needs further work up with SBFT, colonoscopy to the TI, possible capsule endoscopy will d/c to home today gave her number for Dr. Martínez's office, will call tomorrow for appointment, set up for SBFT and discuss endoscopy - SVT, paroxysmal: has been occurring for years typically resolves with vagal maneuver or she uses Lopressor in NSR this AM transfer off tele, stop Amiodarone Total Time Spent: Greater than 30 minutes This includes examination of the patient, discharge planning, medication reconciliation, and communication with other providers. Discharge Instructions Please refer to the electronic Patient Visit Report (Discharge Instructions) for additional information. Follow-Up Dr. Martínez in 1-2 weeks, needs SBFT and colonoscopy Dr. Mohamud in 1-2 weeks Additional Copies To Luis Enrique Martínez M.D.; Sendy Mohamud M.D.
== END 2017-12-15 10:49 | disposition home or self-care (01) | DRG 389 ==
LOC: C.EDB 22:35 → C.MSN 12-13 02:58 → ENRESERV 12-13 03:03 → C.2E 12-13 21:35 → ENRESERV 12-13 21:39 → C.MS2W 12-14 13:57
PROVIDERS: ADMIT Hospitalist; ATTEND Internal Medicine
DX: K56.600 Partial intestinal obstruction, unspecified as to cause (principal); C91.10 Chronic lymphocytic leukemia of B-cell type not having achieved remission; I47.1 Supraventricular tachycardia; K21.9 Gastro-esophageal reflux disease without esophagitis; D64.9 Anemia, unspecified; Z79.899 Other long term (current) drug therapy; Z87.891 Personal history of nicotine dependence; Z88.2 Allergy status to sulfonamides

== ENCOUNTER → 2017-12-27 | Outpatient (CLI) | payer OTHER ==
[~2017-12-27] MED LIST changes: +ACET-1256 PO; -ALPR-411 PO; +LACT1GRA PO; -LCTXP OR; +OPTIRAY 320 IV PRN
--- NOTE | 2017-12-27 09:38 | DIAGNOSTIC IMAGING REPORT ---
CT ENTEROGRAPHY OF THE ABDOMEN AND PELVIS WITH IV CONTRAST CLINICAL HISTORY: Generalized abdominal pain. Recurrent small bowel obstruction. COMPARISON STUDY: Abdominal CT dated 12/13/2017. TECHNIQUE: The small bowel was prepped by having the patient drank negative enteric contrast. Following the IV administration of 118 cc of Optiray 320, CT enterography of the abdomen and pelvis is performed from the lung bases to the proximal femora. Images are reviewed in the axial, sagittal, and coronal planes. IV contrast was administered without complication. A dose lowering technique was utilized adhering to the principles of ALARA. CT DOSE: 357.48 mGy.cm FINDINGS: Lung bases: The heart is normal in size and without pericardial effusion. There is a 7 mm left lower lobe nodule seen on image #8. This contains macroscopic fat and likely represents a hamartoma. No airspace consolidation or pleural effusion is identified. Dependent atelectasis is noted. Scattered calcified granulomas are observed. Mediastinal and hilar lymphadenopathy is partially visualized. A moderate hiatal hernia is identified. There is an 8 mm nodule in the right breast seen on image #21. Liver: The contrast-enhanced liver is normal in size, contour, and attenuation. There is no intrahepatic biliary ductal dilatation. The hepatic veins and portal veins are patent. Gallbladder: There are numerous calcified gallstones. Spleen: The spleen is markedly enlarged, measuring 18 cm in length. Pancreas: Unremarkable. Adrenal glands: Unremarkable. Kidneys: The contrast enhanced kidneys are normal in size and without hydronephrosis. The kidneys enhance symmetrically. A subcentimeter cortical hypodensity in the lower pole the right kidney likely represents a cyst but is too small for definitive characterization. Abdominal vasculature: The abdominal aorta is normal in course and caliber noting mild atherosclerotic calcification. Stomach and bowel: The small bowel loops are mildly distended with negative contrast. No high-grade bowel obstruction is seen. Wall thickening and hyperemia involving a loop of small bowel in the pelvis has significantly improved from 12/13/2017. There is focal thickening with associated hyperemia seen within a small bowel loop in the left hemipelvis on image #392. The upstream small bowel is distended and fluid-filled measuring over 3 cm in diameter and the immediately distal bowel is relatively decompressed. This may represent focal inflammation or possibly stricture. No wall thickening or inflammation is seen involving the distal/terminal ileum. There is mild sigmoid diverticulosis without CT evidence of acute diverticulitis. The appendix is normal as visualized. Peritoneum: There is no intraperitoneal free air or abdominal ascites. Lymphadenopathy: Mildly enlarged mesenteric lymph nodes in the right lower quadrant measure up to 11 mm in short axis. Pelvic sidewall lymphadenopathy has increased from previous. A right pelvic sidewall node on image #390 measures 4.3 x 1.9 cm (previously measured 3.5 x 1.2 cm). A left pelvic sidewall node on image #387 measures 3.4 x 1.6cm (previously measured 2.6 x 1.5 cm). No inguinal adenopathy is seen. Mildly enlarged retroperitoneal and iliac chain nodes measure up to 11 mm in short axis. Pelvic viscera: The bladder, uterus, and adnexa are normal as visualized. Skeletal structures: The skeletal structures are osteopenic. Mild degenerative change is present in the lumbar spine. There is near complete fusion of the sacroiliac joints. No lytic or blastic lesions are seen. A lipoma is present within the left posterior chest wall musculature on image #100. IMPRESSION: 1. The spleen is markedly enlarged. Pelvic sidewall lymphadenopathy has increased from 12/13/2017, and there are mildly enlarged retroperitoneal and pelvic sidewall lymph nodes. Mediastinal and hilar adenopathy are partially visualized. These findings are nonspecific and concerning for a lymphoproliferative disorder. 2. Inflammatory change involving a loop of small bowel in the pelvis seen on 12/13/2017 has significantly improved from previous. 3. There is a focally narrowed loop of small bowel in the left hemipelvis with mucosal thickening and hyperemia. The upstream small bowel loops are distended and fluid-filled. This may represent a persistently inflamed small bowel loop or possibly stricture. 4. There is no evidence of high-grade bowel obstruction. 5. Cholelithiasis. 6. There is near complete fusion of the sacroiliac joints. 7. A 7 mm left lower lobe pulmonary nodule measures fat attenuation likely represent a small hamartoma. Attention at follow-up is recommended. 8. There is an 8 mm nodule identified in the right breast. This is indeterminant and not well evaluated by CT. Follow-up with mammography is recommended. 9. Moderate hiatal hernia. 10. Additional findings as above. Electronically signed by: Gadiel Narvaez M.D. 12/27/2017 9:36 AM Dictated Date/Time: 12/27/2017 9:13 AM
== END | disposition home or self-care (01) ==
LOC: C.CTS 07:28
PROVIDERS: ATTEND Internal Medicine Gastroenterology
DX: K56.609 Unspecified intestinal obstruction, unspecified as to partial versus complete obstruction (principal); R16.1 Splenomegaly, not elsewhere classified; K80.20 Calculus of gallbladder without cholecystitis without obstruction; R91.1 Solitary pulmonary nodule

== ENCOUNTER → 2018-02-24 | Outpatient (CLI) | payer OTHER ==
[~2018-02-24] MED LIST changes: -OPTIRAY 320 IV PRN
--- NOTE | 2018-02-24 10:30 | DIAGNOSTIC IMAGING REPORT ---
GI W/AIR SMALL BOWEL ROUTINE CLINICAL HISTORY: K56.609 Small bowel obstructionRADFLpain. Edema. COMPARISON STUDY: CT 12/27/2017 FLUOROSCOPY TIME: 2 minutes 30 seconds. FINDINGS: Patient initiates his swallowing function well. Esophagus is normal in course and caliber. There is moderate intermittent esophageal spasm. There is moderate gastroesophageal reflux. Size and configuration stomach are normal. Duodenal bulb fills well. Duodenal sweep is unremarkable. Mucosal pattern and transit time throughout the proximal to mid small bowel is unremarkable. There is moderate effacement and moderate luminal narrowing of the final 10 cm of the small bowel. Possibility of an inflammatory bowel process must be considered. There is good flow of the contrast to the duodenal bulb. There are no obstructive changes. IMPRESSION: 1. Moderate esophageal spasm. 2. Small hiatal hernia with moderate gastroesophageal reflux. 3. Moderate luminal narrowing of the terminal ileum with evidence for effacement of the normal mucosal pattern. 4. Inflammatory bowel process must be considered. Endoscopic evaluation is recommended. The above report was generated using voice recognition software. It may contain grammatical, syntax or spelling errors. Electronically signed by: Venkatesh Koroma M.D. 02/24/2018 10:29 AM Dictated Date/Time: 02/24/2018 10:24 AM
== END | disposition home or self-care (01) ==
LOC: C.RAD 08:23
PROVIDERS: ATTEND Surgery
DX: K56.609 Unspecified intestinal obstruction, unspecified as to partial versus complete obstruction (principal); K22.4 Dyskinesia of esophagus; K44.9 Diaphragmatic hernia without obstruction or gangrene

== ENCOUNTER → 2018-04-08 | Day surgery (SDC) | payer BC, OTHER ==
[2018-03-24 13:47] VITALS: BMI 25.0
[~2018-04-08] VITALS: Ht 167.6 cm; Wt 70.5 kg
[~2018-04-08] MED LIST changes: +ACETAMINOPHEN 650 MG SUPP PR PRN; +ATROPINE SULFATE 0.1 MG/ML 5ML SYR IV PRN; +CEFOXITIN SOD 1 GM VIAL ONE; +CHOL1000 PO; +CONRAY 60% 50 ML VIAL ONE; +DEXAMETHASONE SOD INJ 4 MG/ML VIAL ONE; +EpHEDrine SULFATE INJ 50 MG/ML AMP IV PRN; +FENTANYL CITRATE INJ 50 MCG/1 ML 2 ML VIAL IV PRN; +FENTANYL CITRATE INJ 50 MCG/1 ML 2 ML VIAL ONE; +FERR1TAB23 PO; +GLYCOPYRROLATE INJ 0.2 MG/ML VIAL ONE; +HYDROmorphone INJ 1 MG/ML SYR IV PRN; +KETOROLAC TROMETHAMINE 30 MG/ML VIAL ONE; +KRIL1CAP16 PO; +LACTATED RINGER'S 1000ML 1,000 ML IV SCH; +LIDOCAINE HCL 2% 2 ML VIAL (20MG/ML) ONE; +LIDOCAINE/EPINEPHRINE 1% 20 ML VIAL ONE; +METOPROLOL TARTRATE 25 MG TAB PO SCH; +MIDAZOLAM HCL 1 MG/ML 2ML VIAL ONE; +MoRPHine SULFATE 2 MG/ML CARP IV PRN; +MoRPHine SULFATE 4 MG/ML 1 ML CARP\\VIAL IV PRN; +NEOSTIGMINE METHYLSULFATE 5 MG/5 ML SYR ONE; +ONDANSETRON INJ 2 MG/ML 2 ML VIAL IV PRN; +ONDANSETRON INJ 2 MG/ML 2 ML VIAL ONE; +OXYC-57 PO; +OXYCODONE/ACETAMINOPHEN 5-325 TAB PO PRN; +OXYCODONE/ACETAMINOPHEN 5-325 TAB PO STA; +PHENYLEPHRINE 100MCG/ML 5ML SYR ONE; +PROPOFOL IV EMULSION 10 MG/ML 20 ML VIAL ONE; +ROCURONIUM BROMIDE 10 MG/ML 5 ML VIAL ONE; +SODIUM CHLORIDE 0.9% 1000ML 1,000 ML IV SCH
[2018-04-08 05:48] VITALS: BP 128/66; PULSE 70; TEMP 36.7; O2SAT 96; Ht 167.6 cm; Wt 70.5 kg
--- NOTE | 2018-04-08 06:19 | History & Physical Bridge Note ---
H&P Re-Evaluation Bridge Note: I have examined the patient, reviewed the History & Physical and in the interval since the performance of the History & Physical I have noted the following changes of clinical significance: No changes noted upset because of insurance issues that need to be cleared up before surgery all questions answered her surgery will be delayed since I have an emergency now and this was discussed with pt
--- NOTE | 2018-04-08 09:31 | [facility] Post Operative Brief Note ---
Immediate Operative Summary Operative Date April 08, 2018. Pre-Operative Diagnosis symptomatic cholelithiasis narrowing distal small bowel Post-Operative Diagnosis ccc no gross evidence of distal small bowel narrowing Procedure(s) Performed lap gladis ,adis'gram evaluation distal small bowel Surgeon Dr. Simone Tran Electronics Scale Tester Surgeon(s) Daren Barrera PA-C Estimated Blood Loss 5cc Findings See Below cccc no gross narrowing distal small bowel Specimens A.) Gallbladder and contents
--- NOTE | 2018-04-08 09:49 | Discharge Instructions ---
Discharge Instructions Date of Service April 08, 2018. Admission Reason for Admission: Symptomatic Cholelithiasis, Small Bowel Obstructio Discharge Discharge Diagnosis / Problem: Symptomatic cholelithiasis Discharge Goals Goal(s): Decrease discomfort, Improve function Activity Recommendations Activity Limitations: as noted below Lifting Limitations: no more than 10 pounds, until after follow-up appointment Exercise/Sports Limitations: until after follow-up appointment Shower/Bathe: tomorrow Driving or Machine Use: resume 3 days after discharge (Please do not drive while using narcotic pain medication.) . Instructions / Follow-Up Instructions / Follow-Up You have steri-strips covering your incisions. Please allow these to fall off on their own. You have been prescribed Percocet to take as needed for pain relief. Please use as directed. Follow-up with Dr. Tran in 1-2 weeks. Please contact our office at to schedule an appointment if you have not done so already. Please contact our office with any further questions or concerns. [facility]. [address] [place] [address]. Current Hospital Diet Patient's current hospital diet: Discharge Diet Recommended Diet: Regular Diet Procedures Procedures Performed: Laparoscopic Cholecystectomy with Cholangiogram; evaluation of small bowel Pending Studies Studies pending at discharge: yes List of pending studies: pathology Medical Emergencies . Who to Call and When: Medical Emergencies: If at any time you feel your situation is an emergency, please call 911 immediately. . Non-Emergent Contact Non-Emergency issues call your: Primary Care Provider, Surgeon Call Non-Emergent contact if: you have a fever, temperature is above 101.5, your pain is not controlled, your pain is worsening, wound has increased drainage, wound has increased redness . "Provider Documentation" section prepared by Daren Barrera. . [place] Drug Monitoring Program Search Results: patient reviewed within database, no issues identified
--- NOTE | 2018-04-08 10:16 | DIAGNOSTIC IMAGING REPORT ---
CHOLANGIOGRAM O.R. CLINICAL HISTORY: 68 years-old Female presenting with CHOLANGIOGRAM. TECHNIQUE: Fluoroscopy was provided for an intraoperative cholangiogram. 4 fluoroscopic image(s) recorded. COMPARISON: 12/27/2017. FINDINGS: Peritoneal spillage: Peritoneal spillage of contrast consistent with a leak, likely at the cystic duct injection site. Extrahepatic bile ducts: The common bile duct is normal in course and caliber. There are no filling defects seen within the common bile duct to suggest a retained stone. Contrast extends into the small bowel. Intrahepatic bile ducts: There is no intrahepatic bile duct dilatation. Fluoroscopy dosage (mGy): 0.77. Fluoroscopy time: 5.1 seconds. Number of fluoroscopic spot images: 0. IMPRESSION: The patient is status post cholecystectomy. No filling defects within the bile ducts. Electronically signed by: Ben Barkley M.D. 04/08/2018 10:14 AM Dictated Date/Time: 04/08/2018 10:10 AM
[2018-04-08 10:35] VITALS: BP 113/59; PULSE 59; TEMP 36.8; O2SAT 97
[2018-04-08 11:00] VITALS: BP 111/59; PULSE 56; TEMP 36.8; O2SAT 95
[2018-04-08 11:30] VITALS: BP 109/54; PULSE 56; TEMP 36.8; O2SAT 96
--- NOTE | 2018-04-08 11:59 | Anesthesiology Progress Note ---
Anesthesia Post Op Note Date & Time April 08, 2018 at 11:59 Vital Signs Pain Intensity: 0 Vital Signs Past 12 Hours Date Time Temp Pulse Resp B/P (MAP) Pulse Ox O2 Delivery O2 Flow Rate FiO2 04/08/18 11:30 36.8 56 16 109/54 96 Room Air 04/08/18 11:00 36.8 56 16 111/59 95 Room Air 04/08/18 10:35 36.8 59 16 113/59 97 Room Air 04/08/18 10:20 36.3 60 16 107/59 95 Room Air 04/08/18 10:10 77 16 122/62 94 Room Air 04/08/18 10:00 69 16 111/55 97 Oxymask 3 04/08/18 09:50 36.1 82 16 123/57 98 Oxymask 5 04/08/18 05:48 36.7 70 18 128/66 (86) 96 Room Air Notes Mental Status: alert / awake / arousable, participated in evaluation Pt Amnestic to Procedure: Yes Nausea / Vomiting: adequately controlled Pain: adequately controlled Airway Patency, RR, SpO2: stable & adequate BP & HR: stable & adequate Hydration State: stable & adequate Anesthetic Complications: no major complications apparent
--- NOTE | 2018-04-08 12:01 | OPERATIVE REPORT ---
DATE OF OPERATION: 04/08/2018 SURGEON: Simone Tran MD SECURITY INTERN: Daren Wilburn PA-C PREOPERATIVE DIAGNOSIS: Symptomatic cholelithiasis, questionable narrowing of distal small bowel. POSTOPERATIVE DIAGNOSES: Chronic cholecystitis, cholelithiasis, grossly negative pathology of the distal small bowel. SUMMARY: The patient was brought into the operating room theater. The abdomen was prepped with Betadine scrubbing solution and properly draped. We made a small linear incision above the umbilicus sufficient enough to enter the subcu, then a Veress needle was introduced, followed by CO2, and followed by a 5-mm trocar. Point of entry was inspected and no injury identified. At this point, we visualized the right lower quadrant and could see the cecum. There was an adhesive band up higher broad space and not compromising, could not really see the small bowel well at this time. At this point, we then placed a 5-mm epigastric port under direct visualization with preemptive local analgesia 1% Xylocaine, then 2 subcostal ports of 3 mm. We then were able to elevate the cecum which was grossly normal. I visualized the distal aspect of the small bowel and clinically radiographically the patient had an upper GI with small bowel follow through that showed some narrowing in the distal 10 cm of the small bowel. She had also undergone colonoscopy and there was no intraluminal defect. At this point, I visualized that area, it grossly appeared normal. There was no fat encroachment. There was no evidence of any pathology suggestive of an inflammatory bowel disease or Crohn's disease. I milked it up away approximately 2 feet. There was no other pathology that I could see in the area. In fact, I watched the small bowel going into this narrowed area allegedly and it peristalsed fine. There was no evidence of any proximal obstruction and the small bowel appeared to be grossly normal. At this point, attention was turned to the gallbladder where we placed under traction. It was very thick-walled. We dissected out the triangle of Calot, actually the cystic duct appeared to be grossly dilated. We entered it and once we entered, I was able to get some stones out of the cystic duct. I wanted to get a cholangiogram, but prior to this, I was able to identify the triangle, identify the artery, and clipped it proximally twice, once distally and divided. The cholangiocath was positioned in the cystic duct multiple times where we met with resistance. I flushed it out and clearly it out multiple times and finally we were able to position in such a way that we got a cholangiogram. What we were able to see was that the patient had a very redundant cystic duct in that area. The caliber was normal as it went into the common bile duct. The common bile duct was slightly dilated, but there were no filling defects in the common bile duct as it went into the duodenum. At this point, I removed the Angiocath and choked on the cystic duct, though the caliber appeared grossly normal in size, doubly clipped and then divided this. The gallbladder was then removed in the antegrade fashion using electrocautery. A small artery along the liver bed was cauterized. The posterior peritoneum was left intact. The gallbladder was taken off the liver, placed in an Endopouch, taken out intact through the epigastric port. The wall appeared to be quite thickened. The subhepatic and suprahepatic area was then checked for hemostasis and appeared satisfactory. Prior to removing the trocars, I placed a camera in the epigastric port to visualize the umbilical area where we had initially went in and there were no adhesions appreciated in that area and point of entry, there was no injury identified. Individual trocars were removed under direct visualization, last the umbilical trocar. The wounds were closed with 4-0 Monocryl for the epigastric and umbilical area, 3 mm were closed with Steri-Strips. The patient was taken to recovery room in good condition. Estimated blood loss approximately 5 mL. I attest to the content of the Intraoperative Record and any orders documented therein. Any exception s are noted below.
== END | disposition home or self-care (01) ==
LOC: C.ACU 05:16
PROVIDERS: ATTEND Surgery
DX: K81.1 Chronic cholecystitis (principal); K56.609 Unspecified intestinal obstruction, unspecified as to partial versus complete obstruction; M19.90 Unspecified osteoarthritis, unspecified site; I47.1 Supraventricular tachycardia; K21.9 Gastro-esophageal reflux disease without esophagitis; C91.90 Lymphoid leukemia, unspecified not having achieved remission; Z85.820 Personal history of malignant melanoma of skin; Z87.891 Personal history of nicotine dependence; Z90.49 Acquired absence of other specified parts of digestive tract; Z88.2 Allergy status to sulfonamides

== ENCOUNTER 2018-07-01 20:32 | Emergency (ER) | payer BC ==
[~2018-07-01] VITALS: Ht 167.6 cm; Wt 71.0 kg
[~2018-07-01 20:32] MED LIST changes: -ACETAMINOPHEN 650 MG SUPP PR PRN; -ATROPINE SULFATE 0.1 MG/ML 5ML SYR IV PRN; -CEFOXITIN SOD 1 GM VIAL ONE; -CONRAY 60% 50 ML VIAL ONE; -DEXAMETHASONE SOD INJ 4 MG/ML VIAL ONE; -EpHEDrine SULFATE INJ 50 MG/ML AMP IV PRN; -FENTANYL CITRATE INJ 50 MCG/1 ML 2 ML VIAL IV PRN; -FENTANYL CITRATE INJ 50 MCG/1 ML 2 ML VIAL ONE; -GLYCOPYRROLATE INJ 0.2 MG/ML VIAL ONE; -HYDROmorphone INJ 1 MG/ML SYR IV PRN; -KETOROLAC TROMETHAMINE 30 MG/ML VIAL ONE; -LACTATED RINGER'S 1000ML 1,000 ML IV SCH; -LIDOCAINE HCL 2% 2 ML VIAL (20MG/ML) ONE; -LIDOCAINE/EPINEPHRINE 1% 20 ML VIAL ONE; -METOPROLOL TARTRATE 25 MG TAB PO SCH; -MIDAZOLAM HCL 1 MG/ML 2ML VIAL ONE; -MoRPHine SULFATE 2 MG/ML CARP IV PRN; -MoRPHine SULFATE 4 MG/ML 1 ML CARP\\VIAL IV PRN; -NEOSTIGMINE METHYLSULFATE 5 MG/5 ML SYR ONE; -ONDANSETRON INJ 2 MG/ML 2 ML VIAL IV PRN; -ONDANSETRON INJ 2 MG/ML 2 ML VIAL ONE; -OXYC-57 PO; -OXYCODONE/ACETAMINOPHEN 5-325 TAB PO PRN; -OXYCODONE/ACETAMINOPHEN 5-325 TAB PO STA; -PHENYLEPHRINE 100MCG/ML 5ML SYR ONE; -PROPOFOL IV EMULSION 10 MG/ML 20 ML VIAL ONE; -ROCURONIUM BROMIDE 10 MG/ML 5 ML VIAL ONE; -SODIUM CHLORIDE 0.9% 1000ML 1,000 ML IV SCH
[2018-07-01 20:36] VITALS: TEMP 36.8; Ht 167.6 cm; Wt 71.0 kg
[2018-07-01 20:40] VITALS: O2SAT 91
[2018-07-01] MEDS ORDERED: ADENOSINE IV SOLN 3 MG/ML 2 ML VIAL ONE (20:42)
[2018-07-01] MEDS ORDERED: [UNRECOGNIZED DRUG - CODE] TOP (21:11)
[2018-07-01] MEDS ORDERED: DEXT30TA7 PO (21:14)
[2018-07-01] MEDS ORDERED: AMOX500T PO (21:14)
[2018-07-01] MEDS ORDERED: AMOX875T PO (21:15)
[2018-07-01 21:22] LABS: HEMATOCRIT 34.6 % (37-47); HEMOGLOBIN 10.7 g/dL (12.0-16.0); MEAN CELL VOLUME 85.9 fL (80-100); MEAN CORPUSCULAR HEMOGLOBIN 26.6 pg (25-34); MEAN CORPUSCULAR HGB CONC 30.9 g/dl (32-36); MEAN PLATELET VOLUME 10.6 fL (7.4-10.4); PLATELET COUNT 113 K/uL (130-400); RED CELL DISTRIBUTION WIDTH CV 17.2 % (11.5-14.5); RED CELL DISTRIBUTION WIDTH SD 54.3 fL (36.4-46.3); WHITE BLOOD COUNT 121.41 K/uL (4.8-10.8)
--- NOTE | 2018-07-01 21:29 | DIAGNOSTIC IMAGING REPORT ---
CHEST 2 VIEWS ROUTINE HISTORY: 68 years-old Female palpitations acute cardiac palpitations with tachycardia COMPARISON: Acute abdominal series radiographs 12/13/2017 TECHNIQUE: PA and lateral views of the chest FINDINGS: Cardiomediastinal and hilar silhouettes are within normal limits. There is no pneumothorax, pleural effusion, focal airspace consolidation or overt pulmonary edema. Bones of the chest appear grossly intact. Cholecystectomy clips noted. IMPRESSION: No acute process. The above report was generated using voice recognition software. It may contain grammatical, syntax or spelling errors. Electronically signed by: Lane Gonzalez M.D. 07/01/2018 9:27 PM Dictated Date/Time: 07/01/2018 9:26 PM
[2018-07-01 21:38] LABS: CALCIUM 9.4 mg/dl (8.5-10.1); CREATININE 1.15 mg/dl (0.60-1.20); POTASSIUM 5.8 mmol/L (3.5-5.1); TOTAL PROTEIN 7.6 gm/dl (6.4-8.2)
[2018-07-01 21:53] LABS: BASO % 0.3 %; BASO ABS # 0.32 K/uL (0-0.2); EOS % 0.2 %; EOS ABS # 0.23 K/uL (0-0.5); IG# 0.35 K/uL (0.00-0.02); LYMPH % 91.1 %; LYMPH ABS # 110.58 K/uL (1.2-3.4); MONO % 2.8 %; MONO ABS # 3.37 K/uL (0.11-0.59); NEUT % 5.3 %; NEUT ABS # 6.56 K/uL (1.4-6.5)
--- NOTE | 2018-07-01 21:54 | EMERGENCY ROOM VISIT NOTE ---
History Report prepared by Jw: Lisandra Willett Under the Supervision of: Dr. Kyle Balderrama M.D. First contact with patient: 20:41 Chief Complaint: PALPITATIONS Stated Complaint: RACING HEART OVER 7 HOURS,SVT History of Present Illness The patient is a 68 year old female who presents to the Emergency Room with complaints of constant heart palpitations beginning 8 hours ago. Nursing staff notes the patient took Mucinex for some sinus congestion, and has been experiencing symptoms since. She reports she has experienced SVT in the past, and it usually resolves with vagal maneuvers. The patient notes Metoprolol usually resolves her symptoms, and she took 3 25mg doses today, to no effect. She states trying ice water, Augmentin, and vagal maneuvers did not improve her symptoms. The patient notes she does not have a heart doctor, but spoke with Dr. Mackay on the phone today, who recommended she come to the ED tonight and see him for a FU. She reports she saw her PCP today for her sinus congestion. Source of History: patient Onset: 8 hours ago Position: chest (heart) Quality: other (palpitations) Timing: constant Modifying Factors (Relieving): other (not rleieved by Metoprolol, vagal maneuvers, ice water, or Augmentin) Note: Associated symptoms: congestion Review of Systems See HPI for pertinent positives and negatives. A total of ten systems were reviewed and were otherwise negative. Past Medical & Surgical Medical Problems: (1) Acute cholecystitis (2) Anemia (3) Chest congestion (4) Chronic lymphoid leukemia, disease (5) Intestinal obstruction (6) Malignant melanoma of lower limb (7) Osteoporosis (8) Palpitations (9) SBO (small bowel obstruction) Family History Cancer Lung disease Social History Smoking Status: Former Smoker Drug Use: none Marital Status: Housing Status: lives with significant other Occupation Status: employed Current/Historical Medications Scheduled Amoxicillin & Pot Clavulanate (Augmentin 875-125 mg), 1 TAB PO BID Cholecalciferol (Vitamin D3), 1,000 UNITS PO DAILY AT 1500 Dextromethorphan-Guaifenesin (Mucinex Dm), 1 TAB PO Q12 Ferrous Sulfate (Iron), 325 MG PO QAM Krill Oil ([place]-3 Krill Oil 1000 mg), 1 CAP PO 3XWK Multivitamins/Minerals (Mvi With Minerals), 1 TAB PO QAM Tretinoin (Atralin), 1 APPLN TOP 2XWK Scheduled PRN Acetaminophen (Tylenol), 1,000 MG PO DIRECTED PRN for Pain Metoprolol Tartrate (Lopressor), 25 MG PO DAILY PRN for RACING HEART Allergies Coded Allergies: Allopurinol (Verified Allergy, Intermediate, SKIN REACTION, 07/01/18) Prednisone (Verified Allergy, Intermediate, SKIN REACTION, 07/01/18) Sulfa Antibiotics (Verified Allergy, Intermediate, HIVES, 07/01/18) Sulfamethoxazole w/Trimethoprim (Verified Allergy, Intermediate, SKIN REACTION, 07/01/18) Valacyclovir (Verified Allergy, Intermediate, SKIN REACTION, 07/01/18) Physical Exam Vital Signs Date Time Temp Pulse Resp B/P (MAP) Pulse Ox O2 Delivery O2 Flow Rate FiO2 07/01/18 22:24 93 24 134/74 93 07/01/18 21:32 92 18 100 07/01/18 21:31 127/66 07/01/18 21:25 110/97 07/01/18 21:11 125/66 07/01/18 21:06 122/66 07/01/18 21:02 87 16 100 07/01/18 21:01 120/57 07/01/18 20:57 125/80 07/01/18 20:52 87 07/01/18 20:51 128/68 07/01/18 20:49 113/71 07/01/18 20:45 158 07/01/18 20:44 111/88 07/01/18 20:40 91 Room Air 07/01/18 20:40 91 Room Air 07/01/18 20:36 36.8 163 20 105/65 98 Room Air Physical Exam GENERAL: Awake, alert, well-appearing, in mild to moderate distress. HENT: Normocephalic, atraumatic. Oropharynx unremarkable. EYES: Normal conjunctiva. Sclera non-icteric. NECK: Supple. No nuchal rigidity. RESPIRATORY: Clear to auscultation. No wheezes. Normal respiratory effort. CARDIAC: Tachycardic. Normal rhythm. Extremities warm and well perfused. GI: Soft, non-distended. No tenderness to palpation. No rebound or guarding. No masses. RECTAL: Deferred. MUSCULOSKELETAL: Atraumatic. Chest examination reveals no tenderness. There is no CVA tenderness to palpation. LOWER EXTREMITIES: Calves are equal size bilaterally and non-tender. No edema NEURO: Normal sensorium. No sensory or motor deficits noted. No facial droop. SKIN: Warm and dry. No rash or jaundice noted. Medical Decision & Procedures ER Provider Diagnostic Interpretation: Radiology results as stated below per my review and radiologist interpretation: CHEST 2 VIEWS ROUTINE HISTORY: 68 years-old Female palpitations acute cardiac palpitations with tachycardia COMPARISON: Acute abdominal series radiographs 12/13/2017 TECHNIQUE: PA and lateral views of the chest FINDINGS: Cardiomediastinal and hilar silhouettes are within normal limits. There is no pneumothorax, pleural effusion, focal airspace consolidation or overt pulmonary edema. Bones of the chest appear grossly intact. Cholecystectomy clips noted. IMPRESSION: No acute process. The above report was generated using voice recognition software. It may contain grammatical, syntax or spelling errors. Electronically signed by: Lane Gonzalez M.D. 07/01/2018 9:27 PM Dictated Date/Time: 07/01/2018 9:26 PM Laboratory Results 07/01/18 20:40 Red Blood Count 4.03, Mean Corpuscular Volume 85.9, Mean Corpuscular Hemoglobin 26.6, Mean Corpuscular Hemoglobin Concent 30.9, Mean Platelet Volume 10.6, Neutrophils (%) (Auto) 5.3, Lymphocytes (%) (Auto) 91.1, Monocytes (%) (Auto) 2.8, Eosinophils (%) (Auto) 0.2, Basophils (%) (Auto) 0.3, Neutrophils # (Auto) 6.56, Lymphocytes # (Auto) 110.58, Monocytes # (Auto) 3.37, Eosinophils # (Auto ) 0.23, Basophils # (Auto) 0.32 07/01/18 20:40 Test 07/01/18 20:40 White Blood Count 121.41 K/uL (4.8-10.8) Red Blood Count 4.03 M/uL (4.2-5.4) Hemoglobin 10.7 g/dL (12.0-16.0) Hematocrit 34.6 % (37-47) Mean Corpuscular Volume 85.9 fL (80-100) Mean Corpuscular Hemoglobin 26.6 pg (25-34) Mean Corpuscular Hemoglobin Concent 30.9 g/dl (32-36) Platelet Count 113 K/uL (130-400) Mean Platelet Volume 10.6 fL (7.4-10.4) Neutrophils (%) (Auto) 5.3 % Lymphocytes (%) (Auto) 91.1 % Monocytes (%) (Auto) 2.8 % Eosinophils (%) (Auto) 0.2 % Basophils (%) (Auto) 0.3 % Neutrophils # (Auto) 6.56 K/uL (1.4-6.5) Lymphocytes # (Auto) 110.58 K/uL (1.2-3.4) Monocytes # (Auto) 3.37 K/uL (0.11-0.59) Eosinophils # (Auto) 0.23 K/uL (0-0.5) Basophils # (Auto) 0.32 K/uL (0-0.2) RDW Standard Deviation 54.3 fL (36.4-46.3) RDW Coefficient of Variation 17.2 % (11.5-14.5) Immature Granulocyte % (Auto) 0.3 % Immature Granulocyte # (Auto) 0.35 K/uL (0.00-0.02) Smudge Cells PRESENT Hypochromasia PRESENT Anion Gap 7.0 mmol/L (3-11) Est Creatinine Clear Calc Drug Dose 45.0 ml/min Estimated GFR () 57.4 Estimated GFR (Non- 49.5 BUN/Creatinine Ratio 14.4 (10-20) Calcium Level 9.4 mg/dl (8.5-10.1) Magnesium Level 2.2 mg/dl (1.8-2.4) Total Bilirubin 0.3 mg/dl (0.2-1) Direct Bilirubin 0.1 mg/dl (0-0.2) Aspartate Amino Transf (AST/SGOT) 74 U/L (15-37) Alanine Aminotransferase (ALT/SGPT) 37 U/L (12-78) Alkaline Phosphatase 240 U/L (45-117) Troponin I 0.020 ng/ml (0-0.045) Total Protein 7.6 gm/dl (6.4-8.2) Albumin 4.0 gm/dl (3.4-5.0) Thyroid Stimulating Hormone (TSH) 1.270 uIu/ml (0.300-4.500) Laboratory results reviewed by me Medications Administered Medications (Trade) Dose Ordered Sig/Mary Route Start Time Stop Time Status Last Admin Dose Admin Adenosine (Adenosine Iv) 18 mg STK-MED ONCE .ROUTE 07/01/18 20:42 07/01/18 20:43 DC 07/01/18 20:54 6 MG ECG Per My Interpretation Indication: palpitations Rate (beats per minute): 160 Rhythm: SVT Findings: no acute ischemic change, other (left axis deviation) Comparison ECG Date: 04/08/2018 Change: When compared to 04/08/2018: SVT is new. Repeat EKG 07/01/18: NSR, rate of 91, left axis deviation, normal intervals, no ST segment elevation. Repeat EKG shows no significant changes when compared to 04/08/2018. ED Course 2039: The patient was evaluated in room C9. A complete history and physical exam was performed. 2041: Failed vagal maneuvers. Ordered Adenosine 6 mg IV. Converted to NSR. 2200: I reevaluated the patient. Discussed results and discharge instructions: she verbalized understanding and agreement. The patient is ready for discharge. Medical Decision Etiologies such as premature contractions, electrolyte abnormality, cardiac dysrhythmia, thyroid dysfunction, pulmonary embolism, infection, gastrointestinal, as well as others were entertained. Patient presents with sinusitis start Augmentin and Mucinex D today. History of SVT. Prior history of SVT during last admission in December requiring multiple medications prior to resolution. Took 3 doses of metoprolol today as SVT started around 1230pm. Did not break; vagals failed too. Presents here for evaluation. Feel short of breath. No other cardiac medicines no current clinical abstractor. Vagal maneuvers failed here. Patient received adenosine with conversion to normal sinus rhythm after first dose, 6mg. Patient had improvement of symptoms this. Basic laboratory studies were completed here. Slightly high potassium but not critical and no other significant abnormalities. X-ray unremarkable. Elevated white blood cell count but known history of CLL. Troponin is 0.02. Patient with no active chest pain and SOB improved after breaking the SVT. EKG without ischemic changes. Discussed with patient findings. For an outpatient follow-up with cardiology is reasonable at this point. Discussed return precautions and measures going forward to treat both her sinus infection and her SVT. Advised to not use the decongestant anymore. Utilize nasal saline rinses as needed. Patient is agreeable with this plan and the risks and benefits and stable for discharge. She acknowledged return precautions. Medication Reconcilliation Current Medication List: was personally reviewed by me Blood Pressure Screening Patient's blood pressure: Normal blood pressure Blood pressure disposition: Did not require urgent referral Impression Primary Impression: SVT (supraventricular tachycardia) Additional Impression: Acute sinusitis Critical Care I have personally spent greater than 35 minutes of critical care time in the direct management of this patient. This includes bedside care, interpretation of diagnostic studies, and testing, discussion with consultants, patient, and family members, and other required patient management activities. This 35 minutes is in excess of all separately billable procedures. Scribe Attestation The scribe's documentation has been prepared under my direction and personally reviewed by me in its entirety. I confirm that the note above accurately reflects all work, treatment, procedures, and medical decision making performed by me. Departure Information Dispostion Home / Self-Care Referrals Sendy Mohamud M.D. (PCP) Forms HOME CARE DOCUMENTATION FORM, IMPORTANT VISIT INFORMATION, WORK / SCHOOL INSTRUCTIONS Patient Instructions My [facility] Additional Instructions Continue use the prescribed Augmentin but do not utilize the decongestant for your sinus infection anymore. May use nasal saline rinses and Flonase to help with your symptoms. If you experience recurrent SVT you may try vagal maneuvers briefly but if these fail please read present for reevaluation and treatment. Would recommend given the increasing frequency recently and episode tonight the follow-up with cardiology (Dr. Jarvis [phone]) in next week to discuss long-term management of your SVT syndrome. If you experience severe chest pain or shortness of breath please return for reevaluation sooner. Please also follow-up with your computer tester regarding her CLL given the elevated white blood cell count. Problem Qualifiers Additional Impression: Acute sinusitis Sinusitis location: unspecified location Recurrence: non-recurrent Qualified Codes: J01.90 - Acute sinusitis, unspecified
[2018-07-01 22:24] VITALS: BP 134/74; PULSE 93; O2SAT 93
== END 2018-07-01 22:24 | disposition home or self-care (01) ==
LOC: C.EDB 20:33 → C.EDC 22:24
DX: I47.2 Ventricular tachycardia (principal); J01.90 Acute sinusitis, unspecified; M81.0 Age-related osteoporosis without current pathological fracture; Z79.899 Other long term (current) drug therapy; Z88.1 Allergy status to other antibiotic agents; Z88.2 Allergy status to sulfonamides; Z88.8 Allergy status to other drugs, medicaments and biological substances; Z85.6 Personal history of leukemia; Z85.820 Personal history of malignant melanoma of skin; Z87.891 Personal history of nicotine dependence

== ENCOUNTER 2022-07-13 23:37 | Inpatient (IN) ==
[2022-07-14] MEDS ORDERED: ACETAMINOPHEN 1,000 MG/100 ML VIAL IV STA (00:20)
--- NOTE | 2022-07-14 00:24 | Emergency Department Note ---
History of Present Illness General Chief complaint: Abdominal Pain Stated complaint: ABD PAIN Time Seen by Provider: 07/13/22 23:59 Source: patient Mode of arrival: ambulatory Limitations: no limitations History of Present Illness Provider complaint: Abdominal pain Location: abdomen Radiation: back Severity: severe Pain Consistency: + intermittent Maximum Pain Intensity: 10 Associated symptoms: + denies other symptoms Treatments prior to arrival: none This is a 72-year-old female presents emergency department complaining of abdominal pain. Patient states abdominal pain began this evening sometime after 6 PM. She denies eating or drinking anything unusual at dinner, no known sick contacts, ate the same thing and has not been ill. Patient states she has had her gallbladder out, no other prior abdominal surgeries. No history of PUD, IBS, or IBD. No recent change in medications. No recent travel. Patient states the pain is sharp and central with some radiation into the back. She states it is intermittent. She states she feels better if she walks around for a while the pain will begin to dissipate, however will return in about 10 minutes. She denies fevers, chills, nausea, vomiting, change in stools or urine. Pt seen during a time of high acuity and national emergency pandemic while wearing PPE. Home Medications Medication Instructions Recorded Confirmed Type lysine 500 mg tablet (L-Lysine) 500 mg PO QAM 05/02/21 07/14/22 History multivitamin 1 tab PO QAM 05/02/21 07/14/22 History omega-3 fatty acids 1,000 mg PO QAM 05/02/21 07/14/22 History propranolol 10 mg tablet 10 mg PO BID 05/02/21 07/14/22 History pantoprazole 20 mg tablet,delayed 20 mg PO HS 07/14/22 07/14/22 History release Allergies Allergy/AdvReac Type Severity Reaction Status Date / Time allopurinol Allergy Intermediate SKIN Verified 05/05/21 13:56 REACTION Bactrim Allergy Intermediate SKIN Verified 07/01/18 21:06 REACTION prednisone Allergy Intermediate SKIN Verified 05/05/21 13:56 REACTION Sulfa (Sulfonamide Allergy Intermediate HIVES Verified 05/05/21 13:56 Antibiotics) sulfamethoxazole Allergy Intermediate SKIN Verified 05/05/21 13:56 REACTION trimethoprim Allergy Intermediate SKIN Verified 05/05/21 13:56 REACTION valacyclovir Allergy Intermediate SKIN Verified 05/05/21 13:56 REACTION Past Med/Surg History Medical History (Updated 07/14/22 @ 07:14 by Loal Gomez DO) CLL (chronic lymphocytic leukemia) HX CHEMO (NUMBERS CONT. TO BE MONITORED) FOLLOWS WITH ONC. Dysphagia Elevated cholesterol Essential tremor BILATERAL HANDS History of anemia History of intestinal obstruction Hx of basal cell carcinoma ON FACE Migraine Surgical History History of cardiac radiofrequency ablation HX IRREGULAR HEART BEAT "FIXED PROBLEM" 2017>FOLLOWS WITH DR. GOLDMAN History of cholecystectomy History of colonoscopy History of esophagogastroduodenoscopy (EGD) Hx of melanoma excision RT THIGH Family History Other Family history non-contributory No family history of adverse response to anesthesia Social History Smoking Status: Never smoker Second Hand Exposure: No; Hx Alcohol Use: Yes Alcohol type: wine Preferred Language: Bengali Patient Registration Supervisor Required: No Beliefs That Will Affect Care: None Current Living Situation: Spouse Feels Safe at Home: Yes Assistive Devices: Glasses Review of Systems A total of 10 systems reviewed and were otherwise negative All systems reviewed & are unremarkable except as noted in HPI & below Physical Exam Vital Signs Vital Signs - 24 hr 07/13/22 23:50 07/14/22 02:04 07/14/22 03:00 Temperature 36.6 C Temperature Source Temporal Artery Scan Pulse Rate 92 H 86 73 Pulse Rate from SpO2 Sensor 75 Respiratory Rate 16 16 15 Respiratory Effort / Characteristics Non-Labored Spontaneous Respiratory Depth Normal Blood Pressure 120/68 131/72 147/78 H Blood Pressure Mean 85 91 101 Pulse Oximetry 95 98 94 Oxygen Delivery Method Room Air Room Air Room Air Sepsis Recent Fever Within 48 Hours No Sepsis New/Unexplained Change in Mental Status No Sepsis Action Taken by Nursing No Action Required 07/14/22 04:00 07/14/22 05:00 07/14/22 06:00 Temperature Temperature Source Pulse Rate 76 76 73 Pulse Rate from SpO2 Sensor 77 Respiratory Rate 21 18 15 Respiratory Effort / Characteristics Respiratory Depth Blood Pressure 137/70 146/81 H 129/71 Blood Pressure Mean 92 102 90 Pulse Oximetry 96 95 95 Oxygen Delivery Method Room Air Room Air Room Air Sepsis Recent Fever Within 48 Hours Sepsis New/Unexplained Change in Mental Status Sepsis Action Taken by Nursing GENERAL: alert, well appearing, well nourished, no distress, non-toxic EYE EXAM: normal conjunctiva, PERRL and EOM's grossly intact OROPHARYNX: no exudate, no erythema, lips, buccal mucosa, and tongue normal and mucous membranes are moist NECK: supple, no nuchal rigidity, no adenopathy, non-tender LUNGS: Clear to auscultation. Normal chest wall mechanics, no w/r/r HEART: no murmurs, S1 normal and S2 normal ABDOMEN: abdomen soft, non-tender, normo-active bowel sounds, no masses, no rebound or guarding. Dull to percussion. BACK: Back is symmetrical on inspection and there is no deformity, no midline tenderness, no CVA tenderness. SKIN: no rashes and no bruising UPPER EXTREMITIES: upper extremities are grossly normal. FROM, nml pulses b/l. LOWER EXTREMITIES: No pitting edema. FROM, nml pulses b/l. NEURO EXAM: Normal sensorium, cranial nerves II-XII grossly intact, normal speech, no gross weakness of arms, no gross weakness of legs. Gross sensation intact. Course Administered Medications Sodium Chloride (Nss 1000ml) 1,000 mls @ 125 mls/hr IV .Q8H HECTOR Stop: 08/13/22 00:29 Last Admin: 07/14/22 00:49 Dose: 125 mls/hr Documented By: CAROL Discontinued Medications Acetaminophen (Ofirmev) 1,000 mg in 100 mls @ 400 mls/hr IV NOW STA Stop: 07/14/22 00:34 Last Infusion: 07/14/22 00:58 Dose: 0 mls/hr Documented By: Admin: 07/14/22 00:48 Dose: 400 mls/hr Documented By: CAROL Ioversol (Optiray 320 100ml) 95 ml IV ONCE ONE Stop: 07/14/22 02:01 Last Admin: 07/14/22 01:56 Dose: 95 ml Documented By: RAMYA Ketorolac Tromethamine (Ketorolac Tromethamine 15 Mg/Ml Vial) 10 mg IV NOW ONE Stop: 07/14/22 02:54 Last Admin: 07/14/22 03:01 Dose: 10 mg Documented By: CAROL Medical Decision Making Differential Diagnosis Differential diagnoses includes but is not limited to gastritis, peptic ulcer disease, GERD, gallbladder disease, pancreatitis, small bowel obstruction, acute coronary syndrome, pericarditis, ischemic bowel, irritable bowel disease, irritable bowel syndrome, appendicitis, diverticulitis, malignancy, hernia, urinary tract infection, torsion, [/ectopic (if female)], perforation, trauma, infectious. Medical Records Attestation: I reviewed the patient's medical records. Home Medications Current Medication List: was personally reviewed by me Laboratory Data Attestation: I reviewed the patient's lab results. Result diagrams: 07/14/22 00:43 07/14/22 00:43 Lab Results 07/14/22 07/14/22 07/14/22 Range/Units 00:43 00:43 00:43 WBC 8.00 (4.8-10.8) K/ul RBC 4.23 (3.93-5.22) M/uL Hgb 12.8 (12.0-16.0) g/dl Hct 37.7 (34.1-44.9) % MCV 89.1 (80.0-100.0) fL MCH 30.3 (25.0-34.0) pg MCHC 34.0 (32.0-36.0) g/dL RDW Std Deviation 40.3 (36.4-46.3) fL RDW Coeff of Suki 12.3 (11.5-14.5) % Plt Count 162 (130-400) K/uL MPV 10.3 (9.4-12.3) fL Immature Gran % (Auto) 0.3 % Neut % (Auto) 84.7 % Lymph % (Auto) 9.0 % Clark % (Auto) 4.8 % Eos % (Auto) 0.9 % Baso % (Auto) 0.3 % Neut # (Auto) 6.79 H (1.4-6.5) K/uL Lymph # (Auto) 0.72 L (1.2-3.4) K/uL Clark # (Auto) 0.38 (0.24-0.82) K/uL Eos # (Auto) 0.07 (0-0.50) K/uL Baso # (Auto) 0.02 (0-0.2) K/uL Immature Gran # (Auto) 0.02 (0.00-0.02) K/uL Sodium 137 (136-145) mmol/L Potassium 3.7 (3.5-5.1) mmol/L Chloride 104 (98-107) mmol/L Carbon Dioxide 25 (21-32) mmol/L Anion Gap 8 (3-11) BUN 13 (6-23) mg/dl Creatinine 0.64 (0.6-1.2) mg/dl Est Cr Clr Drug Dosing 85.2 ml/min Est GFR ( Amer) 104.8 ml/min Est GFR (Non-Af Amer) 90.4 ml/min BUN/Creatinine Ratio 20.3 H (10-20) Glucose 107 H (70-99(Fasting)) mg/dl Lactate 0.6 (0.4-2.0) mmol/L Calcium 9.5 (8.5-10.1) mg/dl Magnesium 2.2 (1.7-2.4) mg/dl Total Bilirubin 0.5 (0.2-1.0) mg/dl AST 21 (13-39) U/L ALT 24 (7-52) U/L Alkaline Phosphatase 89 (34-104) U/L Troponin I High Sens 3.3 (0-14) pg/ml Total Protein 6.7 (6.0-8.3) gm/dl Albumin 4.4 (3.4-5.0) gm/dl Globulin 2.3 L (2.5-4.0) gm/dl Albumin/Globulin Ratio 1.9 (0.9-2) Lipase 15 (11-82) U/L TSH (0.300-4.500) uIu/ml Urine Color Urine Appearance (Clear) Urine pH (4.5-7.5) Ur Specific [place] (1.000-1.030) Urine Protein (Negative) Urine Glucose (UA) (Negative) Urine Ketones (Negative) Urine Blood (Negative) Urine Nitrite (Negative) Urine Bilirubin (Negative) Urine Urobilinogen (Negative) Ur Leukocyte Esterase (Negative) Urine WBC (Auto) (0-5) /hpf Urine RBC (Auto) (0-4) /hpf U Hyaline Cast (Auto) (0-5) /lpf U Epithel Cells (Auto) (0-5) /lpf Urine Bacteria (Auto) (Negative) SARS-CoV-2, RNA, NAAT (NEGATIVE) 07/14/22 07/14/22 07/14/22 Range/Units 00:43 00:43 05:08 WBC (4.8-10.8) K/ul RBC (3.93-5.22) M/uL Hgb (12.0-16.0) g/dl Hct (34.1-44.9) % MCV (80.0-100.0) fL MCH (25.0-34.0) pg MCHC (32.0-36.0) g/dL RDW Std Deviation (36.4-46.3) fL RDW Coeff of Suki (11.5-14.5) % Plt Count (130-400) K/uL MPV (9.4-12.3) fL Immature Gran % (Auto) % Neut % (Auto) % Lymph % (Auto) % Clark % (Auto) % Eos % (Auto) % Baso % (Auto) % Neut # (Auto) (1.4-6.5) K/uL Lymph # (Auto) (1.2-3.4) K/uL [place] # (Auto) (0.24-0.82) K/uL Eos # (Auto) (0-0.50) K/uL Baso # (Auto) (0-0.2) K/uL Immature Gran # (Auto) (0.00-0.02) K/uL Sodium (136-145) mmol/L Potassium (3.5-5.1) mmol/L Chloride (98-107) mmol/L Carbon Dioxide (21-32) mmol/L Anion Gap (3-11) BUN (6-23) mg/dl Creatinine (0.6-1.2) mg/dl Est Cr Clr Drug Dosing ml/min Est GFR ( Amer) ml/min Est GFR (Non-Af Amer) ml/min BUN/Creatinine Ratio (10-20) Glucose (70-99(Fasting)) mg/dl Lactate (0.4-2.0) mmol/L Calcium (8.5-10.1) mg/dl Magnesium (1.7-2.4) mg/dl Total Bilirubin (0.2-1.0) mg/dl AST (13-39) U/L ALT (7-52) U/L Alkaline Phosphatase (34-104) U/L Troponin I High Sens (0-14) pg/ml Total Protein (6.0-8.3) gm/dl Albumin (3.4-5.0) gm/dl Globulin (2.5-4.0) gm/dl Albumin/Globulin Ratio (0.9-2) Lipase (11-82) U/L TSH 1.990 (0.300-4.500) uIu/ml Urine Color Yellow Urine Appearance Clear (Clear) Urine pH 5.0 (4.5-7.5) Ur Specific [place] 1.018 (1.000-1.030) Urine Protein Negative (Negative) Urine Glucose (UA) Negative (Negative) Urine Ketones 1+ H (Negative) Urine Blood Negative (Negative) Urine Nitrite Negative (Negative) Urine Bilirubin Negative (Negative) Urine Urobilinogen Negative (Negative) Ur Leukocyte Esterase 2+ H (Negative) Urine WBC (Auto) >30 H (0-5) /hpf Urine RBC (Auto) 0-4 (0-4) /hpf U Hyaline Cast (Auto) 1-5 (0-5) /lpf U Epithel Cells (Auto) >30 H (0-5) /lpf Urine Bacteria (Auto) Negative (Negative) SARS-CoV-2, RNA, NAAT NEGATIVE (NEGATIVE) Imaging Data Radiologist's Impression: CT abdomen and pelvis with contrast: Fluid and gas dilated small bowel loops in the inferior abdomen and pelvis with a transition point noted in the central pelvis and questionable mid mucosal thickening. Findings are most consistent with at least a partial mid to distal small bowel obstruction. No pneumatosis or pneumoperitoneum. Stable hiatal hernia. When compared to the examination 02/05/2022. Normal caliber appendix. Stable cholecystectomy. The liver, pancreas, spleen, adrenal glands and kidneys demonstrate no significant abnormality. The bladder, uterus and adnexa are unremarkable and not appreciably altered. No acute osseous or significant overlying soft tissue abnormality identified. Radiologist: Cabrera Crocker MD MDM Narrative An order was placed for continuous cardiac monitoring. The monitor shows a rate of __66_ with _normal sinus_ rhythm. This is a 72-year-old female presents emergency department with concern for abdominal pain. Pain intermittent and accompanied with nausea however no vomiting. She denies fevers. Patient's vital signs were stable on arrival. Labs drawn and sent, patient sent for CT imaging. Patient's labs reassuring, she was given Tylenol and Toradol for pain with relief. She was given IV fluids as a precaution. CT revealed partial small bowel obstruction. No perforation or bleeding. No other evidence of infection. Patient updated on results. She did state that she passed a small amount of gas here. At this time I do not suspect mesenteric ischemia. I do not suspect other occult infectious etiology. Case discussed with hospitalist for additional evaluation and management. UA was suboptimal, despite leukocytes and WBCs there were greater than 30 epis. Patient had no urinary symptoms and has not noticed any changes. Urine will be sent for culture as a precaution. Impression & Plan Abdominal pain, SBO (small bowel obstruction) Discharge Plan Visit Data Chief Complaint: Abdominal Pain Stated Complaint: ABD PAIN ED Provider: Lola Gomez Discharge Problem: Abdominal pain, SBO (small bowel obstruction) Forms Stand Alone Forms: [facility] [employer] Prescriptions Prescriptions: No Action multivitamin Tablet 1 tab PO QAM propranolol 10 mg Tablet 10 mg PO BID lysine [L-Lysine] 500 mg Tablet 500 mg PO QAM omega-3 fatty acids Capsule 1,000 mg PO QAM pantoprazole 20 mg tablet,delayed release (DR/EC) 20 mg PO HS Label Comments: Pt states she is 'being weaned' off of med. PCP is aware. Pt states she only takes 10mg. Referrals Referrals: Sendy Mohamud MD [Primary Care Provider] -
[2022-07-14] MEDS: SODIUM CHLORIDE 0.9% 1000ML 1,000 ML IV SCH ×2 (00:49→08:28)
[2022-07-14 00:55] LABS: Basophils # (auto) 0.02 K/uL (0-0.2); Basophils % (auto) 0.3 %; Eosinophils # (auto) 0.07 K/uL (0-0.50); Eosinophils % (auto) 0.9 %; Hematocrit (blood only) 37.7 % (34.1-44.9); Hemoglobin 12.8 g/dl (12.0-16.0); Immature Granulocytes # (auto) 0.02 K/uL (0.00-0.02); Immature Granulocytes % (auto) 0.3 %; Lymphocytes # (auto) 0.72 K/uL (1.2-3.4); Mean Corpuscular Hemoglobin 30.3 pg (25.0-34.0); Mean Corpuscular Volume 89.1 fL (80.0-100.0); Mean Platelet Volume 10.3 fL (9.4-12.3); Monocytes # (auto) 0.38 K/uL (0.24-0.82); Monocytes % (auto) 4.8 %; Neutrophils # (auto) 6.79 K/uL (1.4-6.5); Neutrophils % (auto) 84.7 %; Platelet Count 162 K/uL (130-400); RDW Coefficient of Variation 12.3 % (11.5-14.5); RDW Standard Deviation 40.3 fL (36.4-46.3); Red Blood Count 4.23 M/uL (3.93-5.22)
[2022-07-14 01:07] LABS: Appearance Urine Clear (Clear); Bacteria Urine Automated Negative (Negative); Bilirubin Urine Negative (Negative); Blood Urine Negative (Negative); Color Urine Yellow; Epithelial Cell Urine Auto >30 /lpf (0-5); Glucose Urine UA Negative (Negative); Ketones Urine 1+ (Negative); Leukocyte Esterase Urine 2+ (Negative); Nitrite Urine Negative (Negative); Protein Urine Negative (Negative); RBC Urine Automated 0-4 /hpf (0-4); Specific Gravity Urine 1.018 (1.000-1.030); Urobilinogen Urine Negative (Negative); WBC Urine Automated >30 /hpf (0-5)
[2022-07-14 01:14] LABS: Albumin Globulin Ratio 1.9 (0.9-2); Albumin Level 4.4 gm/dl (3.4-5.0); BUN Creatinine Ratio 20.3 (10-20); Bilirubin,Total 0.5 mg/dl (0.2-1.0); Calcium 9.5 mg/dl (8.5-10.1); Creatinine Clr Calc Pharmacy 85.2 ml/min; Est GFR (African American) 104.8 ml/min; Est GFR (Non-African American) 90.4 ml/min; Globulin 2.3 gm/dl (2.5-4.0); Magnesium 2.2 mg/dl (1.7-2.4); Potassium 3.7 mmol/L (3.5-5.1); Total Protein 6.7 gm/dl (6.0-8.3)
[2022-07-14 01:21] LABS: Troponin I High Sensitivity 3.3 pg/ml (0-14)
[2022-07-14] MEDS ORDERED: OPTIRAY 320 100ml IV ONE (02:00)
[2022-07-14] MEDS ORDERED: KETOROLAC TROMETHAMINE 15 MG/ML VIAL IV ONE ×2 (02:53→20:31)
--- NOTE | 2022-07-14 06:26 | History & Physical Report ---
Date of Service July 14, 2022 Assessment & Plan (1) SBO (small bowel obstruction): Plan: 72yo female presenting with diffuse abdominal pain which began acutely after dinner. Pain is sharp, intermittent with occasional abdominal bloating and firmness. She is passing flatus and has had 4 BMs today prior to arrival. CT suggestive of partial SBO. Pain and nausea controlled at present -Admit to medical -NPO -NGT if distention, nausea progress -IVF and electrolyte repletion -General Surgery consultation appreciated -Zofran PRN nausea -Morphine PRN pain -Protonix 40mg IV daily (2) CLL (chronic lymphocytic leukemia): Plan: WBC count stable -Monitor (3) Essential tremor: Plan: Chronic -Continue Propranolol F/E/N - LR at 80mL/hr, electrolytes WNL, NPO Ppx - Low risk for DVT Code - Full per discussion with patient Dispo - Admit to medical History of Present Illness Chief Complaint: abdominal pain Primary Care Provider: Sendy Mohamud MD Candace Claudio is a 72yo female with history of CLL presenting with abdominal pain. Patient was in her usual state of health until last evening after dinner when she developed sharp, severe, intermittent generalized abdominal pain. Also with intermittent bloating and firmness of the abdomen. She has had some associated nausea as well. She is passing small amount of flatus. She had 4 normal BMs today prior to arrival. No fever, chills, chest pain, cough, SOB, diarrhea. She has had a cholecystectomy. No prior history of bowel obstructions. States that she had similar abdominal discomfort and symptoms prior to having her cholecystectomy but nothing since. In the ER she is afebrile, HD stable, pain improved with Tylenol and Toradol given. ER Course: Tylenol, Toradol Allergies Allergy/AdvReac Type Severity Reaction Status Date / Time allopurinol Allergy Intermediate SKIN Verified 05/05/21 13:56 REACTION Bactrim Allergy Intermediate SKIN Verified 07/01/18 21:06 REACTION prednisone Allergy Intermediate SKIN Verified 05/05/21 13:56 REACTION Sulfa (Sulfonamide Allergy Intermediate HIVES Verified 05/05/21 13:56 Antibiotics) sulfamethoxazole Allergy Intermediate SKIN Verified 05/05/21 13:56 REACTION trimethoprim Allergy Intermediate SKIN Verified 05/05/21 13:56 REACTION valacyclovir Allergy Intermediate SKIN Verified 06/04/21 13:56 REACTION Home Medications Medication Instructions Recorded Confirmed Type lysine 500 mg tablet (L-Lysine) 500 mg PO QAM 05/02/21 07/14/22 History multivitamin 1 tab PO QAM 05/02/21 07/14/22 History omega-3 fatty acids 1,000 mg PO QAM 05/02/21 07/14/22 History propranolol 10 mg tablet 10 mg PO BID 05/02/21 07/14/22 History pantoprazole 20 mg tablet,delayed 20 mg PO HS 07/14/22 07/14/22 History release Past Med/Surg History Medical History (Updated 07/14/22 @ 06:47 by Stephanie Gaxiola DO) CLL (chronic lymphocytic leukemia) HX CHEMO (NUMBERS CONT. TO BE MONITORED) FOLLOWS WITH ONC. Dysphagia Elevated cholesterol Essential tremor BILATERAL HANDS History of anemia History of intestinal obstruction Hx of basal cell carcinoma ON FACE Migraine Surgical History History of cardiac radiofrequency ablation HX IRREGULAR HEART BEAT "FIXED PROBLEM" 2017>FOLLOWS WITH DR. GOLDMAN History of cholecystectomy History of colonoscopy History of esophagogastroduodenoscopy (EGD) Hx of melanoma excision RT THIGH Family History Other Family history non-contributory No family history of adverse response to anesthesia Social History Smoking Status: Never smoker Second Hand Exposure: No; Hx Alcohol Use: Yes Alcohol type: wine Preferred Language: Vincentian Records Tech Required: No Beliefs That Will Affect Care: None Current Living Situation: Spouse Feels Safe at Home: Yes Assistive Devices: Glasses Review of Systems Review of Systems: All systems reviewed & are unremarkable except as noted in HPI & below Physical Exam Physical Exam: General: patient resting comfortably, NAD, non-toxic in appearance, AA&O x 4 Skin: warm, dry, intact, no rashes or lesions HEENT: NC/AT, PERRL, EOMI, anicteric sclera, conjunctiva without injection, external ear normal to inspection and nontender, nares patent, moist mucus membranes, dentition intact, no oropharyngeal lesions, neck supple, trachea midline, no LAD, no thyromegaly, no JVD Heart: +S1/S2, regular, no m/r/g Lungs: equal air entry bilaterally, no rales/rhonchi/wheezes Abd: diminished bowel sounds, abdomen soft, NT/ND, no masses/organomegaly/ascites Ext: warm, 2+ pulses in UE/LE bilaterally, no clubbing/cyanosis or edema Neuro: nonfocal, patient AA&O x 4, speech intact, no facial droop, moving all extremities on command with equal strength 5/5 Results & Data Results & Data ([facility]) Vital Signs (Past 12 Hours) Vital Signs Temp Pulse Resp BP Pulse Ox O2 Del Method 07/14/22 06:00 73 15 129/71 95 Room Air 07/14/22 05:00 76 18 146/81 H 95 Room Air 07/14/22 04:00 76 21 137/70 96 Room Air 07/14/22 03:00 73 15 147/78 H 94 Room Air 07/14/22 02:04 86 16 131/72 98 Room Air 07/13/22 23:50 36.6 C 92 H 16 120/68 95 Room Air Laboratory Results Laboratory Results WBC 8.00 K/ul (4.8-10.8) 07/14/22 00:43 RBC 4.23 M/uL (3.93-5.22) 07/14/22 00:43 Hgb 12.8 g/dl (12.0-16.0) 07/14/22 00:43 Hct 37.7 % (34.1-44.9) 07/14/22 00:43 MCV 89.1 fL (80.0-100.0) 07/14/22 00:43 MCH 30.3 pg (25.0-34.0) 07/14/22 00:43 MCHC 34.0 g/dL (32.0-36.0) 07/14/22 00:43 RDW Std Deviation 40.3 fL (36.4-46.3) 07/14/22 00:43 RDW Coeff of Suki 12.3 % (11.5-14.5) 07/14/22 00:43 Plt Count 162 K/uL (130-400) 07/14/22 00:43 MPV 10.3 fL (9.4-12.3) 07/14/22 00:43 Immature Gran % (Auto) 0.3 % 07/14/22 00:43 Neut % (Auto) 84.7 % 07/14/22 00:43 Lymph % (Auto) 9.0 % 07/14/22 00:43 [place] % (Auto) 4.8 % 07/14/22 00:43 Eos % (Auto) 0.9 % 07/14/22 00:43 Baso % (Auto) 0.3 % 07/14/22 00:43 Neut # (Auto) 6.79 K/uL (1.4-6.5) H 07/14/22 00:43 Lymph # (Auto) 0.72 K/uL (1.2-3.4) L 07/14/22 00:43 Noble # (Auto) 0.38 K/uL (0.24-0.82) 07/14/22 00:43 Eos # (Auto) 0.07 K/uL (0-0.50) 07/14/22 00:43 Baso # (Auto) 0.02 K/uL (0-0.2) 07/14/22 00:43 Immature Gran # (Auto) 0.02 K/uL (0.00-0.02) 07/14/22 00:43 Sodium 137 mmol/L (136-145) 07/14/22 00:43 Potassium 3.7 mmol/L (3.5-5.1) 07/14/22 00:43 Chloride 104 mmol/L (98-107) 07/14/22 00:43 Carbon Dioxide 25 mmol/L (21-32) 07/14/22 00:43 Anion Gap 8 (3-11) 07/14/22 00:43 BUN 13 mg/dl (6-23) 07/14/22 00:43 Creatinine 0.64 mg/dl (0.6-1.2) 07/14/22 00:43 Est Cr Clr Drug Dosing 85.2 ml/min 07/14/22 00:43 Est GFR ( Amer) 104.8 ml/min 07/14/22 00:43 Est GFR (Non-Af Amer) 90.4 ml/min 07/14/22 00:43 BUN/Creatinine Ratio 20.3 (10-20) H 07/14/22 00:43 Glucose 107 mg/dl (70-99(Fasting)) H 07/14/22 00:43 Lactate 0.6 mmol/L (0.4-2.0) 07/14/22 00:43 Calcium 9.5 mg/dl (8.5-10.1) 07/14/22 00:43 Magnesium 2.2 mg/dl (1.7-2.4) 07/14/22 00:43 Total Bilirubin 0.5 mg/dl (0.2-1.0) 07/14/22 00:43 AST 21 U/L (13-39) 07/14/22 00:43 ALT 24 U/L (7-52) 07/14/22 00:43 Alkaline Phosphatase 89 U/L (34-104) 07/14/22 00:43 Troponin I High Sens 3.3 pg/ml (0-14) 07/14/22 00:43 Total Protein 6.7 gm/dl (6.0-8.3) 07/14/22 00:43 Albumin 4.4 gm/dl (3.4-5.0) 07/14/22 00:43 Globulin 2.3 gm/dl (2.5-4.0) L 07/14/22 00:43 Albumin/Globulin Ratio 1.9 (0.9-2) 07/14/22 00:43 Lipase 15 U/L (11-82) 07/14/22 00:43 TSH 1.990 uIu/ml (0.300-4.500) 07/14/22 00:43 Urine Color Yellow 07/14/22 00:43 Urine Appearance Clear (Clear) 07/14/22 00:43 Urine pH 5.0 (4.5-7.5) 07/14/22 00:43 Ur Specific [place] 1.018 (1.000-1.030) 07/14/22 00:43 Urine Protein Negative (Negative) 07/14/22 00:43 Urine Glucose (UA) Negative (Negative) 07/14/22 00:43 Urine Ketones 1+ (Negative) H 07/14/22 00:43 Urine Blood Negative (Negative) 07/14/22 00:43 Urine Nitrite Negative (Negative) 07/14/22 00:43 Urine Bilirubin Negative (Negative) 07/14/22 00:43 Urine Urobilinogen Negative (Negative) 07/14/22 00:43 Ur Leukocyte Esterase 2+ (Negative) H 07/14/22 00:43 Urine WBC (Auto) >30 /hpf (0-5) H 07/14/22 00:43 Urine RBC (Auto) 0-4 /hpf (0-4) 07/14/22 00:43 U Hyaline Cast (Auto) 1-5 /lpf (0-5) 07/14/22 00:43 U Epithel Cells (Auto) >30 /lpf (0-5) H 07/14/22 00:43 Urine Bacteria (Auto) Negative (Negative) 07/14/22 00:43 SARS-CoV-2, RNA, NAAT NEGATIVE (NEGATIVE) 07/14/22 05:[address] Abdomen and Pelvis with contrast: Per STAT-rad - Fluid and gas dilated small bowel loops in the inferior abdomen and pelvis with a transition point noted in th ecentral pelvis and questionable mild mucosal thickening. Findings are most consistent with at least a partial mid to distal SBO. No pneumatosis or pneumoperitoneum. Stable hiatal hernia. When compared to the examination 02/05/22. Normal caliber appendix. Stable cholecystectomy. The liver, pancreas, spleen, adrenal glands and kidneys demonstrate no significant abnormality. The bladder, uterus and adnexa are unremarkable and not appreciably altered. No acute osseous or significant overlying soft tissue abnormality identified. PG Care Time/CCT Total # of Minutes Spent Total Time Spent with Patient: Total time spent is greater than 50% in coordination of care (as documented) at patient's floor/unit and/or counseling patient: Coding Level of Care Code 65753 Initial Inpt Care Lvl 2 Diagnoses SBO (small bowel obstruction) K56.609 CLL (chronic lymphocytic leukemia) C91.90 Essential tremor G25.0
--- NOTE | 2022-07-14 08:23 | Hospitalist Progress Note ---
Date of Service July 14, 2022 Assessment & Plan (1) SBO (small bowel obstruction): Plan: Candace is a 72 year old female with history of CLL, dysphagia, and an essential tremor who was admitted for a small bowel obstruction. - Patient continues to endorse flatus, pain and nausea is controlled. - She is NPO and receiving IVF at 80 mL/hr, will increase to 100 mL/hr - Gen Surgery - recommended repeat KUB in AM (ordered) with continuation of above plan. - Will consider NGT if symptoms worsen - Zofran PRN for nausea and Morphine PRN for pain (adjust to Tylenol?) - Protonix 40 mg IV daily (2) CLL (chronic lymphocytic leukemia): Plan: - WBC 8, stable, will monitor (3) Essential tremor: Plan: - Chronic, managed with Propranolol, will continue Plan F/E/N - LR at 100mL/hr, electrolytes WNL, NPO DVT Ppx - Ambulation Code Status - Full Dispo - Med/Surg Supervising Physician Co-Signing Physician Notes Patient seen and examined with PGY-1 Dr. Sterling. Agree with history, exam findings, assessment and plan as outlined. Candace is a 72 year old female with history of previous recurrent SOB and CLL admitted with partial SBO. Today, no abdominal pain. No nausea or vomiting. Feels less bloated. VS and nursing notes reviewed. Labs and imaging reviewed. 1. partial SBO. resolving. Defer NGT since she is improving and without nausea/vomiting. Continue IVFs at 100/hr, NPO. Repeat KUB for tomorrow. PRN zofran, PRN morphine. Protonix 40mg. 2. CLL. White blood cell count is not elevated. 3. essential tremor. Continue home propranolol. Dispo: pending clinical improvement. Subjective Candace is a 72 year old female with history of CLL, dysphagia, and an essential tremor who presented for evaluation of abdominal pain. She was found to have evidence of a partial small bowel obstruction on CT imaging and was admitted for management. Today 07/14/22: - Patient resting comfortably, no acute events - She states she feels much improved, her abdominal pain has resolved and she feels less bloated - She denies any fevers, abdominal cramping, chest pain, shortness of breath, or bowel/bladder change Patient is feeling well on LR 80 ml/hr and NPO. Review of Systems Review of Systems: See HPI. Physical Exam Physical Exam: Gen: NAD, resting comfortably, interactive, non-toxic HEENT: Supple, no lymphadenopathy or thyromegaly Resp: Non-labored, no wheezing/rhonchi/rales, CTAB CV: RRR, normal S1/S2, no M/R/G Abd: soft, mild-distension (RUQ/LUQ), no TTP, bowel sounds in all 4 quadrands, no masses Extr: 2+ dp bilaterally, no peripheral edema Skin: Intact, no rashes, lesions, or erythema Results & Data Results & Data ([facility]) Vital Signs (Past 12 Hours) Vital Signs Temp Pulse Pulse Resp BP BP Pulse Ox 07/14/22 07:22 69 16 144/69 H 96 07/14/22 06:00 73 15 129/71 95 07/14/22 05:00 76 18 146/81 H 95 07/14/22 04:00 76 21 137/70 96 07/14/22 03:00 73 15 147/78 H 94 07/14/22 02:04 86 16 131/72 98 07/13/22 23:50 36.6 C 92 H 16 120/68 95 O2 Del Method 07/14/22 07:22 Room Air 07/14/22 06:00 Room Air 07/14/22 05:00 Room Air 07/14/22 04:00 Room Air 07/14/22 03:00 Room Air 07/14/22 02:04 Room Air 07/13/22 23:50 Room Air Resident Activity Tracking Resident Involvement: Resident Care Provided Care Provided: Adult Hospital Medicine
[2022-07-14] MEDS ORDERED: ONDANSETRON INJ 2 MG/ML 2 ML VIAL IV PRN (10:02)
[2022-07-14] MEDS ORDERED: MoRPHine SULFATE 2 MG/ML CARP IV PRN (10:02)
[2022-07-14] MEDS ORDERED: MoRPHine SULFATE 4 MG/ML 1 ML CARP\\VIAL IV PRN (10:02)
[2022-07-14] MEDS: LACTATED RINGER'S 1,000 ML IV SCH ×2 (10:18→19:50)
[2022-07-14] MEDS: PROPRANOLOL HCL 10 MG TAB PO SCH ×2 (11:05→21:14)
--- NOTE | 2022-07-14 11:07 | Surgery Consultation ---
Date of Consultation July 14, 2022 Assessment & Plan (1) Small bowel obstruction: Etiology unclear as she had this predating her cholecystectomy and that is the only abdominal procedure she is ever had. Nonetheless appears to be clinically improving or even resolving already. Would continue to keep her n.p.o. and recheck KUB tomorrow morning. If improves we can initiate a diet and slowly advance. (2) CLL (chronic lymphocytic leukemia): History of Present Illness Attending Physician: Stephanie Gaxiola DO History of Present Illness 72-year-old female with a history of 3 prior small bowel obstructions the last 1 being over 4 years ago. She began last night with acute severe lower abdominal pain. No nausea or vomiting. Last bowel movement was yesterday around 6 PM. She currently feels much better and has no pain. Allergies Allergy/AdvReac Type Severity Reaction Status Date / Time allopurinol Allergy Intermediate SKIN Verified 05/05/21 13:56 REACTION Bactrim Allergy Intermediate SKIN Verified 07/01/18 21:06 REACTION prednisone Allergy Intermediate SKIN Verified 05/05/21 13:56 REACTION Sulfa (Sulfonamide Allergy Intermediate HIVES Verified 05/05/21 13:56 Antibiotics) sulfamethoxazole Allergy Intermediate SKIN Verified 05/05/21 13:56 REACTION trimethoprim Allergy Intermediate SKIN Verified 05/05/21 13:56 REACTION valacyclovir Allergy Intermediate SKIN Verified 05/05/21 13:56 REACTION Home Medications Medication Instructions Recorded Confirmed Type lysine 500 mg tablet (L-Lysine) 500 mg PO QAM 05/02/21 07/14/22 History multivitamin 1 tab PO QAM 05/02/21 07/14/22 History omega-3 fatty acids 1,000 mg PO QAM 05/02/21 07/14/22 History propranolol 10 mg tablet 10 mg PO BID 05/02/21 07/14/22 History pantoprazole 20 mg tablet,delayed 20 mg PO HS 07/14/22 07/14/22 History release Patient History Medical History (Updated 07/14/22 @ 11:07 by Cabrera Coffman DO) CLL (chronic lymphocytic leukemia) HX CHEMO (NUMBERS CONT. TO BE MONITORED) FOLLOWS WITH ONC. Dysphagia Elevated cholesterol Essential tremor BILATERAL HANDS History of anemia History of intestinal obstruction Hx of basal cell carcinoma ON FACE Migraine Surgical History History of cardiac radiofrequency ablation HX IRREGULAR HEART BEAT "FIXED PROBLEM" 2017>FOLLOWS WITH DR. GOLDMAN History of cholecystectomy History of colonoscopy History of esophagogastroduodenoscopy (EGD) Hx of melanoma excision RT THIGH Family History Other Family history non-contributory No family history of adverse response to anesthesia Social History Smoking Status: Never smoker Second Hand Exposure: No; Hx Alcohol Use: Yes Alcohol type: wine Hx Substance Use: No Preferred Language: Spanish Communication Ability: Effective Junior Recruiter Required: No Beliefs That Will Affect Care: None Current Living Situation: Spouse Feels Safe at Home: Yes Assistive Devices: Denture - Upper and Glasses Review of Systems Review of Systems: All systems reviewed & are unremarkable except as noted in HPI & below Physical Exam Constitutional: WD/WN, vitals as above no acute distress and not ill appearing Eyes: PERRL, conjunctivae normal, anicteric sclerae EOM intact bilaterally ENMT: external ear and nose normal, oropharynx normal Ears: no hearing impairment Neck: trachea midline, no thyromegaly Respiratory: normal respiratory effort; no respiratory distress and does not use accessory muscles Cardiovascular: Rate/Rhythm: regular rate and regular rhythm Gastrointestinal (Abdomen): Soft. Nontender. Nondistended Skin: no rashes, warm and dry Psychiatric: Orientation: alert, oriented x 3 and cooperative Results & Data ([facility]) Vital Signs (Past 12 Hours) Vital Signs Temp Pulse Pulse Resp BP BP Pulse Ox 07/14/22 10:21 80 07/14/22 10:06 36.7 C 75 18 138/73 97 07/14/22 07:22 69 16 144/69 H 96 07/14/22 06:00 73 15 129/71 95 07/14/22 05:00 76 18 146/81 H 95 07/14/22 04:00 76 21 137/70 96 07/14/22 03:00 73 15 147/78 H 94 07/14/22 02:04 86 16 131/72 98 07/13/22 23:50 36.6 C 92 H 16 120/68 95 O2 Del Method 07/14/22 10:21 07/14/22 10:06 Room Air 07/14/22 07:22 Room Air 07/14/22 06:00 Room Air 07/14/22 05:00 Room Air 07/14/22 04:00 Room Air 07/14/22 03:00 Room Air 07/14/22 02:04 Room Air 07/13/22 23:50 Room Air PG Care Time/CCT Total # of Minutes Spent Total Time Spent with Patient: Total time spent is greater than 50% in coordination of care (as documented) at patient's floor/unit and/or counseling patient: Coding Level of Care Code 71601 Initial Inpt Care Lvl 3 Diagnoses Small bowel obstruction K56.609 CLL (chronic lymphocytic leukemia) C91.90
--- NOTE | 2022-07-14 11:51 | CT Scan Report ---
CT abd pelvis IV con only CLINICAL HISTORY: Diffuse abdominal pain COMPARISON STUDY: 02/05/2022 CT DOSE: 526.18 mGy.cm TECHNIQUE: Standard CT of the Abdomen and Pelvis was performed with IV contrast. A dose lowering rose hnique was utilized adhering to the principles of ALARA. Contrast Volume: Optiray 320, 95 ml. The patient did not receive oral contrast. FINDINGS: Lung base: The lung bases are clear. Abdominal cavity: There is no evidence for abdominal mass, adenopathy or ascites. Liver: There is homogeneous attenuation of the liver parenchyma. There is no evidence for enhancing m ass lesion. Spleen: There is homogeneous attenuation of the splenic parenchyma. There is no enhancing mass lesion . Pancreas: There is homogeneous attenuation of the pancreatic parenchyma. There is no evidence for mas s lesion or peripancreatic fluid collection. Gall Bladder: The gallbladder is well distended with no evidence for intraluminal calculi, wall thick ening or pericholecystic edema. Adrenal glands: The adrenal glands are normal in size and attenuation. There is no evidence for enhan cing mass lesion. Kidneys: There is homogeneous attenuation of the renal parenchyma bilaterally. There is no evidence f or renal calculus or hydronephrosis. There is no evidence for enhancing mass. Bowel: 1 there is a small to moderate size hiatal hernia. There are moderately dilated loops of small bowel seen in the left upper quadrant and midabdomen with decompression of bone statistically. The f indings are characteristic of a partial small bowel obstruction. The exact site of transition is not identified. There is no evidence for mass lesion. There are no inflammatory changes present. There is no evidence for free air. There is a normal appendix in the right lower quadrant. Bladder: The bladder is within normal limits with no evidence for focal mass, calculus or diverticulu m. : There is no evidence for pelvic mass or adenopathy. There is no evidence for pelvic ascites. Vasculature: There is no evidence for aneurysmal dilatation of the abdominal aorta. Osseous structures: There is no acute osseous pathology. IMPRESSION: 1. Moderate dilatation of the proximal small bowel loops left upper quadrant of the abdomen character istic of partial small bowel obstruction. 2. No other evidence for acute intra-abdominal or pelvic abnormality. 3. Additional nonacute findings are delineated above. ACT 112: Negative or not required by law. Electronically signed by: Michael Lezama M.D. 07/14/2022 11:50 AM
[2022-07-14] MEDS: PANTOprazole 40 MG in SYRINGE 0 ML IV SCH (12:00)
--- NOTE | 2022-07-14 12:04 | Electrocardiogram Report ---
Test Reason : Blood Pressure : / mmHG Vent. Rate : 080 BPM Atrial Rate : 080 BPM P-R Int : 138 ms QRS Dur : 148 ms QT Int : 412 ms P-R-T Axes : 053 -31 012 degrees QTc Int : 475 ms Normal sinus rhythm Left axis deviation Right bundle branch block Abnormal ECG When compared with ECG of 06-JAN-2020 07:20, Right bundle branch block is now Present Confirmed by Rod Dumont ([id number]) on 07/14/2022 12:03:34 PM Referred By: REFERRED SELF Confirmed By:Rod Dumont
[2022-07-14] MEDS: ACETAMINOPHEN 325 MG TAB PO PRN (16:17)
[2022-07-14] MEDS: MELATONIN 3 MG TAB PO PRN (21:14)
[2022-07-15] MEDS: ACETAMINOPHEN 325 MG TAB PO PRN (02:40)
[2022-07-15 07:33] LABS: Basophils # (auto) 0.02 K/uL (0-0.2); Basophils % (auto) 0.4 %; Eosinophils # (auto) 0.04 K/uL (0-0.50); Eosinophils % (auto) 0.7 %; Hematocrit (blood only) 36.1 % (34.1-44.9); Hemoglobin 12.3 g/dl (12.0-16.0); Immature Granulocytes # (auto) 0.01 K/uL (0.00-0.02); Immature Granulocytes % (auto) 0.2 %; Lymphocytes # (auto) 0.71 K/uL (1.2-3.4); Lymphocytes % (auto) 12.8 %; Mean Corpuscular Hemoglobin 29.9 pg (25.0-34.0); Mean Corpuscular Hgb Conc 34.1 g/dL (32.0-36.0); Mean Corpuscular Volume 87.8 fL (80.0-100.0); Mean Platelet Volume 10.8 fL (9.4-12.3); Monocytes # (auto) 0.28 K/uL (0.24-0.82); Neutrophils # (auto) 4.49 K/uL (1.4-6.5); Neutrophils % (auto) 80.9 %; Platelet Count 140 K/uL (130-400); RDW Coefficient of Variation 12.1 % (11.5-14.5); Red Blood Count 4.11 M/uL (3.93-5.22); White Blood Count 5.55 K/ul (4.8-10.8)
[2022-07-15 07:51] LABS: BUN Creatinine Ratio 20.4 (10-20); Bilirubin Direct 0.1 mg/dl (0-0.2); Bilirubin,Total 0.6 mg/dl (0.2-1.0); Calcium 9.1 mg/dl (8.5-10.1); Creatinine Clr Calc Pharmacy 111.3 ml/min; Est GFR (African American) 114.4 ml/min; Est GFR (Non-African American) 98.7 ml/min; Potassium 3.6 mmol/L (3.5-5.1); Total Protein 6.2 gm/dl (6.0-8.3)
[2022-07-15] MEDS: PROPRANOLOL HCL 10 MG TAB PO SCH ×3 (09:23→23:40)
[2022-07-15] MEDS ORDERED: ACETAMINOPHEN 10MG/ML PEDIATRIC DOSING IV PRN (09:51)
[2022-07-15] MEDS ORDERED: KETOROLAC TROMETHAMINE 15 MG/ML VIAL IV ONE (09:53)
--- NOTE | 2022-07-15 10:05 | Hospitalist Progress Note ---
Date of Service July 15, 2022 Assessment & Plan (1) SBO (small bowel obstruction): Plan: Candace is a 72 year old female with history of CLL, dysphagia, and an essential tremor who was admitted for a small bowel obstruction. - Patient continues to endorse flatus, abdominal pain and nausea is controlled - She is advancing diet as tolerated and receiving IVF at 100 mL/hr - Gen Surgery - recommended advancement as tolerated - Will consider NGT if symptoms worsen - Zofran PRN for nausea and Tylenol/Morphine PRN for pain - Protonix 40 mg IV daily 07/15/22 KUB 1. Mildly dilated loops of small bowel are again seen in the left upper quadrant with decompression of small bowel loops distally. The findings are again suspicious for partial small bowel obstruction. (2) CLL (chronic lymphocytic leukemia): Plan: - WBC 5.5, stable, will monitor (3) Essential tremor: Plan: - Chronic, managed with Propranolol, will continue Plan F/E/N - LR at 100mL/hr, electrolytes WNL, advance as tolerated DVT Ppx - Ambulation Code Status - Full Dispo - Med/Surg Admission and Anticipated Discharge Date Admission Date: July 14, 2022 Supervising Physician Co-Signing Physician Notes Patient seen and examined with PGY-1 Dr. Sterling. Agree with history, exam findings, assessment and plan as outlined. Candace is a 72 year old female with history of previous recurrent SOB and CLL admitted with partial SBO. Today, no abdominal pain. No nausea or vomiting. Notes that she had a headache this morning (has a history of migraines); headache is improved following one time dose of toradol. VS and nursing notes reviewed. Well appearing. Heart with regular rate and rhythm. No edema. Lungs are clear to ascultation throughout with good air movement. Abdomen with + bowel sounds throughout; nontender, non-distended. Labs and imaging reviewed. 1. partial SBO. resolving. Repeat KUB remains unchanged, but clinically she is improving. Advancing diet--clear today and can advance to fulls then soft tomorrow if she continues to improve. PRN zofran, PRN morphine. Protonix 40mg. 2. CLL. White blood cell count is not elevated. 3. essential tremor. Continue home propranolol. Dispo: Slowly improving; advancing diet. Anticipate that if things continue to improve she can be discharged tomorrow AM. Subjective Candace is a 72 year old female with history of CLL, dysphagia, and an essential tremor who presented for evaluation of abdominal pain. She was found to have evidence of a partial small bowel obstruction on CT imaging and was admitted for management. Today 07/15/22: - Patient resting, room darkened/eyes covered 2/2 headache that began overnight - Toradol received w/ minimal benefit, AM PO Tylenol caused nausea, Hx of migraines, no neurologic Sx or 'worst headache of her life'. - Abd. discomfort continues to improve, she is not having abd. pain/pressure today, flatus continues, bloating is improved, LBM 07/13/22. - Patient endorses improvement of appetite - She denies any fevers, abdominal cramping, chest pain, shortness of breath, or bowel/bladder change Patient is tolerating LR 100 ml/hr and NPO well. Review of Systems Review of Systems: See HPI. Physical Exam Physical Exam: Gen: NAD, resting in darkened room w/ eyes covered, interactive, non-toxic HEENT: Supple, no lymphadenopathy or thyromegaly, SHIRA Resp: Non-labored, no wheezing/rhonchi/rales, CTAB CV: RRR, normal S1/S2, no M/R/G Abd: soft, minimal distension (RUQ/LUQ), no TTP, bowel sounds in all 4 quadrants, no masses Extr: 2+ dp bilaterally, no peripheral edema Skin: Intact, no rashes, lesions, or erythema Results & Data Results & Data ([facility]) Vital Signs (Past 12 Hours) Vital Signs Temp Pulse Pulse Pulse Resp BP Pulse Ox 07/15/22 08:27 86 07/15/22 08:10 36.6 C 84 18 181/106 H 97 07/15/22 04:13 36.5 C 81 18 155/79 H 95 07/14/22 23:00 83 07/14/22 22:32 36.8 C 91 H 18 157/77 H 93 O2 Del Method 07/15/22 08:27 07/15/22 08:10 Room Air 07/15/22 04:13 Room Air 07/14/22 23:00 07/14/22 22:32 Room Air Resident Activity Tracking Resident Involvement: Resident Care Provided Care Provided: Adult [facility] Medicine
[2022-07-15] MEDS ORDERED: BUTALBITAL/ACETAMIN/CAFFEINE TAB PO STA (10:56)
--- NOTE | 2022-07-15 10:57 | XRay Report ---
XR KUB/Abdomen 1 view CLINICAL HISTORY: Follow-up suspected partial small bowel obstruction. COMPARISON STUDY: CT abdomen and pelvis from 07/14/2022 TECHNIQUE: 2 supine views of the abdomen FINDINGS: Mildly dilated loops of small bowel are again seen within the left upper quadrant with normal caliber small bowel loops distally. The findings are again suspicious for partial small bowel obstruction. T here is air seen within the colon. There is no evidence for organomegaly or gross intra-abdominal mass. No abnormal calcifications are seen along the course of the urinary tracts bilaterally. No acute osseous pathology. IMPRESSION: 1. Mildly dilated loops of small bowel are again seen in the left upper quadrant with decompression o f small bowel loops distally. The findings are again suspicious for partial small bowel obstruction. ACT 112: Negative or not required by law. Electronically signed by: Michael Lezama M.D. 07/15/2022 10:54 AM
--- NOTE | 2022-07-15 11:24 | Surgery Progress Note ---
Date of Service July 15, 2022 Assessment & Plan (1) Small bowel obstruction: Plan: No nausea or vomiting or pain. She has increased flatus. KUB still showing some dilated loops of bowel however clinically much improved. We will initiate clear liquids and see how she does. Currently no indication for urgent intervention. (2) Headache: Plan: Likely secondary to caffeine withdrawal. We will give her a dose of Fioricet. Admission and Anticipated Discharge Date Admission Date: July 14, 2022 Subjective Patient seen. Her main complaint is a headache. She has had no nausea or vomiting and no abdominal pain for 24 hours. No bowel movement but she is passing flatus. Physical Exam Constitutional: WD/WN, vitals as above no acute distress and not ill appearing Eyes: PERRL, conjunctivae normal, anicteric sclerae EOM intact bilaterally ENMT: external ear and nose normal, oropharynx normal Ears: no hearing impairment Neck: trachea midline, no thyromegaly Respiratory: normal respiratory effort; no respiratory distress and does not use accessory muscles Cardiovascular: Rate/Rhythm: regular rate and regular rhythm Gastrointestinal (Abdomen): Soft. Nontender nondistended. No palpable abnormalities. Skin: no rashes, warm and dry Psychiatric: Orientation: alert, oriented x 3 and cooperative Results & Data ([facility]) Vital Signs (Past 12 Hours) Vital Signs Temp Pulse Pulse Resp BP Pulse Ox O2 Del Method 07/15/22 08:27 86 07/15/22 08:10 36.6 C 84 18 181/106 H 97 Room Air 07/15/22 04:13 36.5 C 81 18 155/79 H 95 Room Air PG Care Time/CCT Total # of Minutes Spent Total Time Spent with Patient: Total time spent is greater than 50% in coordination of care (as documented) at patient's floor/unit and/or counseling patient: Coding Level of Care Code 05658 Subseq Hosp Care Lvl 2 Diagnoses Small bowel obstruction K56.609 Headache R51.9
[2022-07-15] MEDS: PANTOprazole 40 MG in SYRINGE 0 ML IV SCH (11:25)
[2022-07-15] MEDS: MELATONIN 3 MG TAB PO PRN (20:58)
[2022-07-15] MEDS: LACTATED RINGER'S 1,000 ML IV SCH (20:58)
[2022-07-15] MEDS ORDERED: PANTOprazole 40 MG TAB PO SCH (21:00)
[2022-07-15] MEDS ORDERED: ZOLPIDEM TARTRATE 5 MG TAB PO ONE (23:04)
--- NOTE | 2022-07-16 08:37 | XRay Report ---
KUB HISTORY: Follow up study in a patient with reported small bowel obstruction sbo COMPARISON: KUB 07/15/2022, CT 07/14/2022 FINDINGS: Surgical clip projects over the right iliac wing. Cholecystectomy. Air is noted within the large bowel. There is a persistent dilated air-filled loop of small bowel in the left lower abdomen m easuring approximately 6.4 cm transversely. No renal calculi. No ureteral calculi. No pneumoperitone um or pneumatosis. No fracture. IMPRESSION: Persistent dilated small bowel within the left lower abdomen with air also present within the large b owel suggestive of a least a partial small bowel obstruction. ACT 112: Negative or not required by law. The above report was generated using voice recognition software. It may contain grammatical, syntax o r spelling errors. Electronically signed by: Kyle Gonzalez M.D. 07/16/2022 8:35 AM
[2022-07-16] MEDS: PROPRANOLOL HCL 10 MG TAB PO SCH (08:49)
[2022-07-16] MEDS ORDERED: MULTIVITAMIN TAB PO SCH (09:00)
[2022-07-16] MEDS ORDERED: OMEGA-3 (PURIFIED FISH OIL) 1 GM CAP PO SCH (09:00)
[2022-07-16] MEDS ORDERED: NON-FORMULARY MEDICATION (Lysine [L-Lysine] 500 mg Tablet) PO SCH (09:00)
--- NOTE | 2022-07-16 09:58 | Surgery Progress Note ---
Date of Service July 16, 2022 Assessment & Plan (1) Small bowel obstruction: Plan: X-rays are not back to normal yet however clinically the small bowel obstruction has resolved. She is eating and bowels are moving and feels well. Patient stable for discharge today Admission and Anticipated Discharge Date Admission Date: July 14, 2022 Subjective Feeling well. No complaints. No nausea. Several bowel movements overnight. She has no pain. Tolerating scrambled eggs and toast for breakfast. Physical Exam Constitutional: WD/WN, vitals as above no acute distress and not ill appearing Eyes: PERRL, conjunctivae normal, anicteric sclerae EOM intact bilaterally ENMT: external ear and nose normal, oropharynx normal Ears: no hearing impairment Neck: trachea midline, no thyromegaly Respiratory: normal respiratory effort; no respiratory distress and does not use accessory muscles Cardiovascular: Rate/Rhythm: regular rate and regular rhythm Gastrointestinal (Abdomen): normal bowel sounds, soft, nontender, no hepato splenomegaly Skin: no rashes, warm and dry Psychiatric: Orientation: alert, oriented x 3 and cooperative Results & Data ([facility]) Vital Signs (Past 12 Hours) Vital Signs Temp Pulse Resp BP Pulse Ox O2 Del Method 07/16/22 07:24 36.8 C 73 18 164/67 H 96 Room Air 07/15/22 23:27 36.7 C 87 16 176/79 H 94 Room Air PG Care Time/CCT Total # of Minutes Spent Total Time Spent with Patient: Total time spent is greater than 50% in coordination of care (as documented) at patient's floor/unit and/or counseling patient: Coding Level of Care Code 10104 Subseq Hosp Care Lvl 2 Diagnoses Small bowel obstruction K56.609
--- NOTE | 2022-07-16 09:58 | Discharge Summary ---
Date of Service July 16, 2022 Admission HPI Per Admitting Provider Candace Claudio is a 72yo female with history of CLL presenting with abdominal pain. Patient was in her usual state of health until last evening after dinner when she developed sharp, severe, intermittent generalized abdominal pain. Also with intermittent bloating and firmness of the abdomen. She has had some associated nausea as well. She is passing small amount of flatus. She had 4 normal BMs today prior to arrival. No fever, chills, chest pain, cough, SOB, diarrhea. She has had a cholecystectomy. No prior history of bowel obstructions. States that she had similar abdominal discomfort and symptoms prior to having her cholecystectomy but nothing since. In the ER she is afebrile, HD stable, pain improved with Tylenol and Toradol given. ER Course: Tylenol, Toradol Admission Exam Per Admitting Provider Constitutional: well developed and + obese Respiratory: normal respiratory effort Cardiovascular: Rate/Rhythm: regular rate and regular rhythm Gastrointestinal (Abdomen): Percussion/Palpation: abdomen soft Principal Diagnosis Small Bowel Obstruction Discharge Exam Gen: NAD, resting in darkened room w/ eyes covered, interactive, non-toxic HEENT: Supple, no lymphadenopathy or thyromegaly, SHIRA Resp: Non-labored, no wheezing/rhonchi/rales, CTAB CV: RRR, normal S1/S2, no M/R/G Abd: soft, minimal distension (RUQ/LUQ), no TTP, bowel sounds in all 4 quadrants, no masses Extr: 2+ dp bilaterally, no peripheral edema Skin: Intact, no rashes, lesions, or erythema Discharge Data Allergies Allergy/AdvReac Type Severity Reaction Status Date / Time allopurinol Allergy Intermediate SKIN Verified 05/05/21 13:56 REACTION Bactrim Allergy Intermediate SKIN Verified 07/01/18 21:06 REACTION prednisone Allergy Intermediate SKIN Verified 05/05/21 13:56 REACTION Sulfa (Sulfonamide Allergy Intermediate HIVES Verified 05/05/21 13:56 Antibiotics) sulfamethoxazole Allergy Intermediate SKIN Verified 05/05/21 13:56 REACTION trimethoprim Allergy Intermediate SKIN Verified 05/05/21 13:56 REACTION valacyclovir Allergy Intermediate SKIN Verified 05/05/21 13:56 REACTION Consultations 07/14/22 05:47 ED Decision to Admit Stat 07/14/22 10:02 Consult General Surgery Routine Ordered Studies 07/14/22 00:24 CT abd pelvis IV con only Stat 1. Moderate dilatation of the proximal small bowel loops left upper quadrant of the abdomen characteristic of partial small bowel obstruction. 2. No other evidence for acute intra-abdominal or pelvic abnormality. 3. Additional nonacute findings are delineated above. 07/15/22 XR KUB Mildly dilated loops of small bowel are again seen in the left upper quadrant with decompression of small bowel loops distally. The findings are again suspicious for partial small bowel obstruction. 07/16/22 XR KUB Persistent dilated small bowel within the left lower abdomen with air also present within the large bowel suggestive of a least a partial small bowel obstruction. Hospital Course (1) SBO (small bowel obstruction): Candace is a 72 year old female with history of CLL, dysphagia, and an essential tremor who was admitted for a small bowel obstruction. - Patient continues to endorse flatus, no abdominal pain, nausea or emesis - Patient had formed bowel movement, followed by loose bowel movement last evening 07/15 - She has advanced to regular diet w/ IVF at 100 mL/hr - Gen Surgery - recommended advancement as tolerated - Zofran PRN for nausea and Tylenol/Morphine PRN for pain - Protonix 40 mg IV daily 07/15/22 KUB Mildly dilated loops of small bowel are again seen in the left upper quadrant with decompression of small bowel loops distally. The findings are again suspicious for partial small bowel obstruction. 07/16/22 KUB Persistent dilated small bowel within the left lower abdomen with air also present within the large bowel suggestive of a least a partial small bowel obstruction. (2) CLL (chronic lymphocytic leukemia): - WBC 5.5, stable (3) Essential tremor: - Chronic, managed with Propranolol Plan F/E/N - Regular DVT Ppx - Ambulation Code Status - Full Dispo - Discharge to home Total Time Total Time Spent Total Time Spent (In Minutes): See attending attestation. Discharge Plan Discharge Items Patient Disposition: Home - Self-Care Reason For Visit: SBO Discharge Diagnosis: Small Bowel Obstruction (improved) Condition on Discharge: Good Activity: Resume your previous activity Lifting: Gradually increase as tolerated Bathing: No limitations Sexual Activity: When tolerated Driving/Machine Use: No limitations Weightbearing: Full weightbearing Non-emergency contact: Primary Care Provider Call non-emergency contact if: you have any medication questions and your symptoms worsen Follow-up/Referrals: Sendy Mohamud MD [Primary Care Provider] - 07/18/22 3:30 pm Diet: Regular Fluids: 2000ml (8 cups) Addtl Attending Provider Instructions: As we discussed, small bowel obstructions generally are more a combination of adhesions (scar tissue in the abdomen from prior surgeries or sometimes old injuries or infections) and bad luck -- the small bowel moves fairly freely in the abdominal cavity, and so it can end up "wiggling" into the scar tissue and getting kinked. fortunately for 90+% of people, that same "wiggling" allows the small bowel to work its way free over a few days - which is what your body is showing us. to reiterate what we talked about - this was not caused by something you ate. You were admitted to the hospital for small bowel obstruction and were treated with fluids, food restriction, and pain management. A discharge summary will be sent to your primary care physician to ensure continuity of care. Please bring this discharge summary with you to your next office appointment so that your provider can review it at that time. Follow-up appointments: - Make a follow-up appointment with your PCP within the next week. It is very important that you follow up with them shortly after discharge from the hospital. We have requested a follow-up appointment with your primary care physician within one week of discharge. Please call their office if you do not hear from them. Medications: - Your medication list has been reviewed and reconciled upon discharge to ensure accuracy and continuity of care. An updated list of all your medications is included with your hospital discharge paperwork. Please review this list closely, and make note of any changes. - Call your primary care provider before taking any new medicines (including over- the-counter medicines, vitamins, and supplements), because some of these may interact with your current medications, or may make your symptoms worse. - Tell your primary care provider if you cannot afford your medications. Contact your Primary Care Provider if you experience: - Abdominal discomfort, nausea, or vomitting - Difficulty following your treatment plan or taking medications Call 911 or go to the emergency department if you experience: - Sudden, severe abdominal pain or nausea/vomiting - Severe chest pain, or chest pain that radiates (moves) to your jaw or arm - Sudden, severe shortness of breath or difficulty breathing It was a pleasure to be a part of your care, Dr. Lily Sterling Pending Studies at Discharge: No Stand-Alone Forms: [facility], Smoking Cessation Medications and DC Order Prescriptions: Continued multivitamin Tablet 1 tab PO QAM propranolol 10 mg Tablet 10 mg PO BID lysine [L-Lysine] 500 mg Tablet 500 mg PO QAM omega-3 fatty acids Capsule 1,000 mg PO QAM pantoprazole 20 mg tablet,delayed release (DR/EC) 20 mg PO HS Label Comments: Pt states she is 'being weaned' off of med. PCP is aware. Pt states she only takes 10mg. Discharge Orders: Discharge Order (Routine); Ordered 07/16/22 Ordered By: Mauricio Regan Admission Data Admit Date/Time: 07/14/22 06:24 Attending Provider: Mauricio Regan Admit Provider: Stephanie Gaxiola Primary Care Provider: Sendy Mohamud Other Providers: Stephanie Gaxiola ; Cabrera Coffman ; Yunier Roland. Other Interventions: Discharge Summary Assessment (RN) Last Done: 07/16/22 11:16 Supervising Physician Co-Signing Physician Notes I personally examined the patient and verified all matos points of history and exam, discussed case, and agree with decision making with Dr Sterling feeling better ate OK no pain after (+) flatus (+) BM vitals noted nad heent nc at mmm breathing unlabored no accessory muscles good effort abd soft very mild distention nt no guarding no rebound 1. partial SBO. resolving. Repeat KUB remains unchanged, but clinically she is improved. ate/(+)BM/(+)flatus -- safe/stable for home 2. CLL. White blood cell count is not elevated. 3. essential tremor. Continue home propranolol. Dispo: safe/stable for home Resident Activity Tracking Resident Involvement: Resident Care Provided Care Provided: Adult Hospital Medicine
[2022-07-16] MEDS: LACTATED RINGER'S 1,000 ML IV SCH (10:09)
[2022-07-16] MEDS: PANTOprazole 40 MG in SYRINGE 0 ML IV SCH (11:02)
[2022-07-16 11:04] LABS: Hematocrit (blood only) 39.4 % (34.1-44.9); Hemoglobin 13.3 g/dl (12.0-16.0); Mean Corpuscular Hemoglobin 29.9 pg (25.0-34.0); Mean Corpuscular Hgb Conc 33.8 g/dL (32.0-36.0); Mean Corpuscular Volume 88.5 fL (80.0-100.0); Mean Platelet Volume 10.3 fL (9.4-12.3); Platelet Count 180 K/uL (130-400); RDW Standard Deviation 38.7 fL (36.4-46.3); Red Blood Count 4.45 M/uL (3.93-5.22); White Blood Count 6.11 K/ul (4.8-10.8)
[2022-07-16 11:50] LABS: Calcium 9.9 mg/dl (8.5-10.1); Creatinine Clr Calc Pharmacy 95.7 ml/min; Est GFR (African American) 108.9 ml/min; Est GFR (Non-African American) 93.9 ml/min; Potassium 4.4 mmol/L (3.5-5.1)
--- NOTE | 2022-07-16 18:53 | Billing Data ---
Date of Service July 16, 2022 Coding Level of Care Code D/C DAY MANAGEMENT <30 MINS
== END 2022-07-16 13:20 | disposition home or self-care (01) | DRG 389 ==
LOC: ED 23:37 → SUATTDRO 07-14 06:24 → 2W 07-14 06:24

== ENCOUNTER 2024-04-20 00:03 | Observation (INO) ==
--- OUTSIDE RECORDS SUMMARY | 2024-04-20 00:07 | External Medical Summary | Continuity of Care Document ---
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 Name Role Phone Sendy Mohamud Primary Care Physician [phone] [facility]counter [facility] [id number] Date(s): 03/24/24 - 03/24/[address], [address] [place] [address] [phone] Encounter Diagnosis Acute upper respiratory infection, unspecified(Final) - Viral URI(Discharge Diagnosis) - 03/24/24 Discharge Disposition: Home or Self Care Attending Physician: OPAL Wylie Jessica A Allergies, Adverse Reactions, Alerts Substance Reaction Severity Status allopurinol severe rash Active predniSONE 1 Rash Resolved Valtrex severe rash Active sulfa drugs hives Active 1per pt Assessment and Plan Extracted from: Title:URI Author:OPAL Wylie Jessica A Date:03/24/24 1.Viral URI Viral URI is acute and progressing asanticipated. Goal is resolution of symptoms. Discussed thatviral URIs are typically self-limiting and it is not uncommon for symptoms to last 1 to 2 weeks. Encourage supportive care with rest, clear fluids, humidification, saline nasal rinses and Mucinex as needed. She did request COVID testingtoday. COVID/influenza/RSV swab obtainedand we will contact patient with results of testing. Also, she is interested in a cough suppressantand notes that last time she did receiveone her pharmacy had difficulty obtaining it. She was given prescriptionsCheratussin AC 10 mL p.o. every 4-6 hours as needed for cough, #180 mL, 0RF and Hycodan syrup, 5 mL PO [id number] as needed, #80 mL, 0RF.She is aware that she's not to fill both prescriptions, but only whichever one is available at the pharmacy (she'll attempt to fill Cheratussin AC first). Advised to contact the office if sx are not improving after 5-7 days, worsen or change. She agreed. Immunizations Given and Recorded Vaccine Date Status Refusal Reason SARS-CoV-2 (COVID-19) mRNA BNT-162b2 vax 1 11/12/21 Recorded SARS-CoV-2 (COVID-19) mRNA BNT-162b2 vax 2 03/02/21 Recorded SARS-CoV-2 (COVID-19) mRNA BNT-162b2 vax 3 02/18/21 Recorded SARS-CoV-2 (COVID-19) mRNA BNT-162b2 vax 4 01/30/21 Recorded SARS-CoV-2 (COVID-19) mRNA BNT-162b2 vax 5 01/28/21 Recorded influenza virus vaccine, inactivated 10/07/20 Give n influenza virus vaccine, inactivated 10/06/19 Give n influenza virus vaccine, inactivated 10/01/18 Give n influenza virus vaccine, inactivated 09/01/13 Juvenal rded zoster vaccine, inactivated 01/20/20 Recorded zoster vaccine, inactivated 10/06/19 Recorded pneumococcal 23-valent vaccine 6 01/13/18 Given pneumococcal 13-valent vaccine 07/12/17 Given tetanus/diphtheria/pertuss, acel (Tdap) 7 09/10/12 Recorded tetanus/diphtheria/pertuss, acel (Tdap) 06/01/10 R ecorded tetanus/diphtheria/pertuss, acel (Tdap) 8 06/01/10 Recorded tetanus/diphtheria/pertuss, acel (Tdap) 9 08/01/07 Recorded hepatitis B adult vaccine 10 09/12/00 Recorded tetanus toxoids-diphtheria, Td (Adult) 11 04/28/98 Recorded 1Result Comment: 2023-04-17: Historical information-source unspecified 2Result Comment: 2023-04-17: Historical information-source unspecified 3Result Comment: 2023-04-17: Historical information-source unspecified 4Result Comment: 2023-04-17: Historical information-source unspecified 5Result Comment: 2023-04-17: Historical information-source unspecified 6Early/Late Reason: Other : Pt in office and given 01/13/2018. Documented late. 7Result Comment: 2023-04-17: Historical information-source unspecified 8Result Comment: 2023-04-17: Historical information-source unspecified 9Result Comment: 2023-04-17: Historical information-source unspecified 10Result Comment: 2023-04-17: Historical information-source unspecified 11Result Comment: 2023-04-17: Historical information-source unspecified Medications Augmentin 875 mg-125 mg oral tablet Start: 03/26/24 15:44:00 EDT, amoxicillin 1 tab, PO, q12h, Disp# 20, X 10 day, with food or milk, Stop: 04/05/24 15:44:00 EDT, Pharmacy: [id number] Start Date: 03/26/24 Stop Date: 04/05/24 Status: Ordered Cheratussin AC 10 mg-100 mg/5 mL oral syrup Start: 03/24/24 16:45:00 EDT, 10 mL, PO, q4h, Disp# 180 mL, X 3 day, PRN: as needed for cough, Stop: 03/27/24 16:45:00 EDT Start Date: 03/24/24 Stop Date: 03/27/24 Status: Ordered DesOwen 0.05% topical cream Start: 01/16/23 15:50:00 EST, 1 appl, topical, bid, Disp# 15 g, Refills: 1, Pharmacy: [id number] Start Date: 01/16/23 Status: Ordered fluticasone 50 mcg/inh nasal spray Start: 11/18/23 9:40:00 EST, See Instructions, Disp# 16 g, Refills: 5, Use 2 spray(s) in each nostril once daily, Pharmacy: [id number] Start Date: 11/18/23 Status: Ordered Hycodan 5 mg-1.5 mg/5 mL oral syrup Start: 03/24/24 16:46:00 EDT, 5 mL, PO, q6h, Disp# 60 mL, Refills: 0, PRN: as needed for cough Start Date: 03/24/24 Stop Date: 03/27/24 Status: Ordered ipratropium 21 mcg/inh (0.03%) nasal spray Start: 12/12/23 9:37:00 EST, 2 spray, each nostril, bid, Disp# 1 each, Pharmacy: [facility] Start Date: 12/12/23 Stop Date: 12/17/23 Status: Ordered multivitamin Start: 03/22/21 9:07:00 EDT, 1 tab, PO, Daily Start Date: 03/22/21 Status: Ordered propranolol 10 mg oral tablet Start: 12/26/23 11:25:00 EST, See Instructions, Disp# 60 tab, Refills: 6, Take 1 tablet by mouth twice daily, Pharmacy: [facility] Start Date: 12/26/23 Status: Ordered Retin-A 0.01% topical gel Start: 03/17/24 17:22:00 EDT, See Instructions, Disp# 45 g, Refills: 0, APPLY TOPICALLY TO FACE AT BEDTIME, Pharmacy: [facility] #[id number] Start Date: 03/17/24 Status: Ordered Tylenol 500 mg oral tablet Start: 03/22/21 9:07:00 EDT, 2 po prn headache Start Date: 03/22/21 Status: Ordered Mental Status 03/24/24 Barriers to Learning one year None evide nt Mandatory Health Literacy Documentation Yes Health Literacy Communication Barriers N ever Primary Language Lao Problem List Condition Confirmation Course Effective Dates Status Health Status Informant Acute allergic rhinitis Confirmed Active Anxiety Confirmed Active Atherosclerosis of aorta 1 Confirmed Active Blepharitis Confirmed Active CLL (chronic lymphocytic leukemia) Confirmed Active CLL (chronic lymphocytic leukemia) Confirmed Active Coarse tremor Confirmed Active EKG abnormality Confirmed Active Blood pressure elevated without history of HTN Confirmed Active Emotional stress Confirmed Active Hiatal hernia with GERD Confirmed Active Adenopathy, hilar Confirmed Active History of small bowel obstruction Confirmed Active History of basal cell carcinoma Confirmed Active Hyperlipidemia Confirmed Active Hypogammaglobulinemia Confirmed Active Seborrheic keratosis, inflamed Confirmed Active Vesperal insomnia Confirmed Active Insomnia Confirmed Active Benign skin lesion of face Confirmed Active Leukemia 2 Confirmed Active Melanoma 3, 4 Confirmed Active Osteoporosis Confirmed Active Palpitation Confirmed Active Post-menopausal bleeding Confirmed Active 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 sees Dr. Louis 5Other Stim Use Uns W/Withdrawal assessed on 07/14/2022 by [facility] Diagnosis Diagnosis Type Effective Dates Health Status Clini leana Service Informant Viral URI Discharge Diagnosis 03/24/24 Non-Specified Procedures Procedure Date Related Diagnosis Body Site Status Sinuses X-ray 1 12/12/[address] of abdomen and pelvis 2 07/13/[address] of abdomen and pelvis 3 02/05/[address] of chest 4 02/05/[address] of soft tissues of neck w ith contrast 5, 6 02/05/22 Completed Upper GI endoscopy 7 05/05/21 Comp leted Barium swallow 8 01/31/21 Complete d Mohs micrographic surgery 09/05/20 Completed Shave biopsy of skin 08/02/20 Comp leted Shave biopsy 04/01/19 Completed Catheter ablation for cardia c arrhythmia, left lateral pathway 9 08/18/18 Completed CXR - Chest X-ray 10 07/01/18 Comp leted Cholangiogram 11 04/08/[address] of abdomen 12 02/24/18 Complete d Colonoscopy 13 01/03/[address] enterography of abdomen a nd pelvis 14 12/27/[address] of abdomen and pelvis 15, 16 12/13/17 Completed X-ray of abdomen 17 12/13/17 Compl eted X-ray of abdomen 18 12/13/17 Compl eted Gallbladder 2017 Completed Abdominal US, RUQ 20 08/01/[address] of abdomen and pelvis 21 08/01/17 Completed CXR - Chest X-ray 22 08/01/17 Comp leted HIDA scan 23 08/01/17 Completed Date of last PAP test 24 07/12/17 Completed Chest x-ray 25 10/14/[address] Angiogram of the Chest 26 10/14/16 Completed CAT scan of abdomen and pelvis 27 07/21/16 Completed Chest x-ray 28 07/21/[address] with contrast 29 01/26/[address] of abdomen 30 01/26/[address] of head and neck 31 01/26/16 Co mpleted Mammogram 32 03/17/[address] brain with contrast 33 11/26/[address] of chest 34 11/26/[address] of neck 35 11/26/14 Completed Eye surgery 36 10/25/14 Completed Mammogram 37 06/14/14 Completed Shave biopsy 38 06/11/14 Completed Mammogram - screening 39 06/02/14 Completed Colonoscopy normal 03/05/14 Comple clemente Chemotherapy Completed Melanoma removal 40 Compl eted Procedure [address] [place] [address] Impression: 1. Suspected mild right maxillary sinus mucosal thickening 2. Otherwise, sinuses are clear [address] [place] [address] Impression: 1. Moderate dilatation of the proximal small bowel loops left upper quadrant of the abdomen characteristic of partial small bowel obstruction. 2. No other evidence for acute intra-abdominal or pelvic abnormality. 3. Additional nonacute findings [address] [place] [address] Impression: 1. No evidence of lymphadenopathy in this patient with history of CLL. Spleen is normal in size 4[facility] Impression: 1. No acute intrathoracic abnormality 2. No thoracic lymphadenopathy 3. Circumscribed 7 x 6 mm solid nodule of the basal left lower lobe appears stable to slightly increased in size dating back to 2016. This is considered a low suspicion nodule and may represent a pulmonary hamartoma 5[facility] Impression: 1. No cervical lymphadenopathy 2. Progression of the acute on chronic right maxillary sinusitis 6Note: There is a fluid level and mucosal thickening within the right maxillary sinus resulting in near complete opacification 7Normal esophagus Z-line regular, 35 cm from the incisors Normal stomach Normal examined udodenum No specimens collected. 81. Moderate sized hiatal hernia with grasroesophageal reflux. 2. No esophageal mass or stricture identified. 9Dr. Samii at [facility] 10No acute process. 11[facility] Impression: 1.Status post cholecystectomy. No filling defects within the bile ducts 121. Moderate esophageal spasm. 2. Small hiatal hernia with moderate gastroesphageal reflux. 3. Moderate luminal narrowing of the terminal elieum with evidence for effacement of the normal mucosal pattern. 4. Inflammatory bowel process must be considered. Endoscopic evaluation is recommended. 13[facility] Impression: 1. The examined portion of the ileum was normal 2. Non-bleeding internal hemorrhoids 3. No specimens collected 141. The spleen is markedly enlarged. Pelvic sidewall lymphadenopathy has increased from 12/13/2017, and there are mildly enlarged retroperitoneal and pelvic sidewall lymph nodes. Mediastinal and hilar adenopathy are partially visualized. These findings are nonspecific and concerning for a lymphoprolif erative disorder. 2. Inflammatory change involving loop of small bowel in the pelvis seen on 12/13/17 has significantly improved from previous. 3. There is a focally narrowed loop of small bowel in the left hemipelvis with mucosal thickening and hyperemia. The upstream small bowel loops are distended and fluid filled. This may represent a persistently inflamed small bowel loop or possible stricture. 4. There is no evidence of high grade bowel obstruction. 5. Cholelithiasis. 6. There is near complete fusion of the sacroiliac joints. 7. A 7mm left lower lobe pulmonary nodule measures fat attenuation likely represent a small hamartoma. Attention at follow up is recommended. 8. There is an 8mm nodule identified in the right breast. This is indeterminate and not well evaluated by CT. Follow up with mammography is recommended. 9 Moderate hiatal hernia. 10. Additional findings as above. 151. There are mildly distended, thick walled, and hyperemic loops of small bowel in the pelvis with surrounding inflammatory change. The appearance is most typical for a nonspecific enteritis. This could be on an infectious or inflammatory basis such as crohn's disease. Clinical correlation will be e ssential. 2. There is no convincing evidence of small bowel obstruction. No discrete transition point is identified. 163.Mildly enlarged mesenteric lymph nodes as well as free fluid in the pelvis are likely on a reactive basis. 4. The spleen is markedly enlarged and there is pelvic sidewall adenopathy. These findingsare nonspecific but could be seen in the setting of a lymphoproliferative disorder. Clinical correlation will be essential. 5. An enteric tube terminates in the stomach. 6. Cholelithiasis. 7.Additional findings as above. 17Improved bowel pattern status post removal of the nasogastric tube. No significant bowel or small bowel distention on the current study. 18Improved bowel pattern s/p removal of nasogastric tube. No significant bowel or small bowel distention on the current study. [address] Dean 20[facility] Impression: 1. Cholelithiasis, mild gallbladder wall thickening and trace pericholecystic fluid. While not diagnostic, the findings favor acute cholecystitis. A hepatobiliary scan could be obtained 211. Cholelithiasis, and mild gallbaldder wall thickening/pericholecystic fluid. Clinical correlationregards to acute cholecysititis is recommended. 2. Mildly dilated pelvic small bowel measuring 5cm. Borderline bowel wall thickening invloving the small bowel proximal and distal to this dilated loop. 3. Lymphadenopathy, most pronounced in the iliac and common femoral regions this is slightly increased when compared the prior study. 4 splenomegaly. 221. No free air or evidence of bowel obstruction. 2. Moderate amount of stool within the colon. 3. No acute cardiopulmonary findings. 231. Patent cystic duct without sonographic evidence to suggest acute cholecystitis or common bile duct obstruction. 2. Moderate enterograstic reflux. 3. Exam was terminated at 52 minutes secondary to the patient experiencing nausea and vomiting. 24Negative for intraepithelial lesion or malignancy. 25No active disease in the chest 261. No CT evidence of acute pulmonary embolism 2. Slight increase in the bilateral axillary lymphadenopathy 3. Mild hilar node enlargement 4. Splenomegaly 5. Stable 6 mm left lower lobe pulmonary nodule 27[facility] Impression: 1. Findings consistent with partial distal small bowel obstruction. 2. Multiple distended loops of fluid filled small bowel as well as equalization of components of the small bowel are present. 3. Somewhat annular wall thickening of a short segment of the distal small bowel potentially is theetiology fracture. This may be inflammatory or neoplastic. 4. Improving pelvis adenopathy compared to the prior study graft. 5. Small fixed lateral hernia unchanged. 6. Stable splenomegaly 28[facility] impression: Negative chest 29[facility] Impression: 1. Findings of moderately progressive axillary and to a lesser extent upper abdominal adenopathy 2. Hilar and mediastinal regions remain negative for significant bienvenido change 3. Subtle interval development of several small parenchymal nodules within the lungs 4. Splenomegaly slightly increased from the prior study 301. Increasing iliac and pelvic sidewall lymphadenopathy. 2. Splenomegaly. 3. Hiatal hernia 4. Sl joint ankylosis 5. No acute inflammatory changes. No evidence of bowel obstruction. 31Progressive bilateral cervical bienvenido pathology. 32Impression: The nodular asymmetries versus partially circumscribed masses in the lateral right breast have decreased ocmpared to the 2013 mammogram, suggesting benighnity or normal overlapping fibroglandular tissue. There is no mammographic evidence of malignancy. Return to annual mammogram screening schedule is recommended. The patient has been verbally notified of the results. 33Impression: Hepatosplenomegaly. The spleen has decreased in size from 12/11/13. There are mildly enlarged pelvic sidewall and external iliac chain lymph nodes. These have significantly decreased in size from 12/11/2013. Hiatal hernia. Additional chronic findings as above. 34Conclusion: Multiple prominent bilateral axillary lymph nodes. Follow-up is suggested. No evidnece of mediastinal or hilar adenopathy. hiatal hernia. 35No pathologically enlarged cervical lymph nodes. Numerous small bilateral cervical lymph nodes, abnormal in number only. Subcentimeter thyroid nodules. 36Pars plana vitrectomy,23 guage. Membrane peel of the internal limiting membrane and overlying epiretinal membrane, all to the L eye. 37diag mammogram and US right breast Impression: increasing nodular asymmetries in the right upper outer breast correlate with 2 benign intramammary lumph nodes. However, given the heterogeneously dense breast parchyma and persistent nodularity mammographically, a short interval follow-up right mammogram and ultrasound is recommended to ensure stability. A follow-up mammogram and an ultrasound in 6 months is recommended to demonstrate stability. The patient has been verbally notified of the results. 38right cheek 39R breast asymmetry, further evaluation is needed [id number]/2014 L. eye surgery Results Laboratory List Name Date COVID-19 Coronavirus, FluA/B and RSV (CO VID-19,FLU A/B,RSV) 03/24/24 Most recent to oldest [Reference Range]: 1 Influenza A [NIAD] No Influenza A detec clemente 1 *Unknown* (03/24/24 4:33 PM) Influenza B [NIAB] No Influenza B detec clemente 2 *Unknown* (03/24/24 4:33 PM) RSV [NRSVD] No RSV detected 3 *Unknown* (03/24/24 4:33 PM) COVID-19 Coronavirus PCR [COV19N] COVID 19 virus not detected 4 *Unknown* (03/24/24 4:33 PM) 1Result Comment: A negative result does not rule out the possibility of influenza infection as the sensitivity of this test is approximately 98% Patients being admitted to [facility] should also have the RVP assay ordered. 2Result Comment: A negative result does not rule out the possibility of influenza infection as the sensitivity of this test is approximately 98% Patients being admitted to [facility] should also have the RVP assay ordered. 3Result Comment: A negative result does not rule out the possibility of RSV infection as the sensitivity of this test is approximately 98% Patients being admitted to [facility] should also have the RVP assay ordered. 4Result Comment: Test results reported to [place] [facility] This assay has been granted an Emergency Use Authorization (EUA) by the U.S. Food and Drug Admimistration. The performance of the assay (ECS Tuning by PCR) has been verified by the [facility]. 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 It just came back onSunday."Gayathri developednasal congestion,diffuse sinus pressure and facialdiscomforton postnasal drip x 3 days ago. She is also had a sore throatand dry to productive cough. Her chest is sore when coughing. She has been using fluticasone nasal sprayand NyQuilwithout improvement. Notes that last year she struggled with similar symptoms for several monthsbefore they resolved afterhaving been onmultiple different medications. She is fearful and does not want the same thing to occur. Eating, drinking and voiding normally. Non-smoker. No history of asthma or COPD. No history of sinus surgery. She does have a PMH ofCLLthat is in remission and follows with hematology annually. She would like to have a COVID test today and cough suppressant if possible. + chronically diminished taste and smell that is no different from baseline. No fevers, chills, nausea, vomiting, diarrhea, wheezing, chest tightness, SOB, ear pain, rash, skin changes, dizziness,weakness, arthralgias, myalgias, eye watering, eye itching or mattering. Review of Systems ROS:All other systems negative, except HPI. Physical Exam Vitals & Measurements T:36.9C HR:86(Monitored) RR:16 BP:122/72 SpO2:98% WT:70.7kg WT:70.700kg(Dosing) PHQ2 Data(Data Documented on:03/24/2024 16:24) Emotional health assessment NEGATIVE General: Alert and oriented, No acute distress.Pleasantfemale accompanied by . Mild audible nasal congestion. Eye: Pupils are equal, round and reactive to light, Extraocular movements are intact, Normal conjunctiva. HENT: Normocephalic. TMs clear bilaterally. Posterior pharynx is pinkwith cobblestoning.Nares with boggy turbinates. Uvula rises midline. No drooling, stridor or cyanosis. Neck: Supple, No lymphadenopathy, No thyromegaly. Respiratory: Lungs are clear to auscultation, Respirations are non-labored, Breath sounds are equal, Symmetrical chest wall expansion. No audible wheezing, rales or rhonchi. Cardiovascular: Normal rate, Regular rhythm, No murmur, No gallop, Good pulses equal in all extremities, Normal peripheral perfusion. No LE edema. Lymphatics: No submandibular, anterior or posterior cervical adenopathy palpable. Musculoskeletal Normal gait. FROM and 5/5 strength at BLE and BUE. Integumentary: Warm, Nicasio, No pallor. Neurologic: Alert, Oriented, Cranial Nerves II-XII are grossly intact. Cognition and Speech: Oriented, Speech clear and coherent, Functional cognition intact. Psychiatric: Cooperative, Appropriate mood & affect, Normal judgment, Nonsuicidal. Assessment/Plan 1.Viral URI Viral URI is acute and progressing asanticipated. Goal is resolution of symptoms. Discussed thatviral URIs are typically self-limiting and it is not uncommon for symptoms to last 1 to 2 weeks. Encourage supportive care with rest, clear fluids, humidification, saline nasal rinses and Mucinex as needed. She did request COVID testingtoday. COVID/influenza/RSV swab obtainedand we will contact patient with results of testing. Also, she is interested in a cough suppressantand notes that last time she did receiveone her pharmacy had difficulty obtaining it. She was given prescriptionsCheratussin AC 10 mL p.o. every 4-6 hours as needed for cough, #180 mL, 0RF and Hycodansyrup, 5 mL PO [id number] as needed, #80 mL, 0RF.She is aware that she's not to fill both prescriptions, but only whichever one is available at the pharmacy (she'll attempt to fill Cheratussin AC first). Advised to contact the office if sx are not improving after 5-7 days, worsen or change. She agreed. Problem List/Past Medical History Ongoing Acute allergic rhinitis Adenopathy, hilar Anxiety Atherosclerosis of aorta Benign skin lesion of face Blepharitis Blood pressure elevated without history of HTN CLL (chronic lymphocytic leukemia) CLL (chronic lymphocytic leukemia) Coarse tremor Dysphagia EKG abnormality Emotional stress Hiatal hernia with GERD History of basal cell carcinoma History of small bowel obstruction Hyperlipidemia Hypogammaglobulinemia Insomnia Leukemia Melanoma Orthodromic reciprocating tachycardia Osteoporosis Other stimulant abuse, uncomplicated Palpitation Post-menopausal bleeding Seborrheic keratosis, inflamed SVT (supraventricular tachycardia) Vesperal insomnia Weight disorder Historical Knee pain Pelvic pain in female Procedure/Surgical History Sinuses X-ray| Service Date: 4CT of abdomen and pelvis| Service Date: 2CT of soft tissues of neck with contrast| Service Date: 2CT of abdomen and pelvis| Service Date: 2CT of chest| Service Date: 02/05/2022Upper GI endoscopy| Service Date: 1Barium swallow| Service Date: 01/31/2021Mohs micrographic surgery| Service Date: 09/05/2020Shave biopsy of skin| Service Date: 08/02/2020Shave biopsy| Service Date: 04/01/2019Catheter ablation for cardiac arrhythmia, left lateral pathway| Service Date: 08/18/2018CXR - Chest X-ray| Service Date: 07/01/2018Cholangiogram| Service Date: 04/08/2018CT of abdomen| Service Date: 02/24/2018Colonoscopy| Service Date: 01/03/2018CT enterography of abdomen and pelvis| Service Date: 12/27/2017CT of abdomen and pelvis| Service Date: 12/13/2017X-ray of abdomen| ServiceDate: 12/13/2017X-ray of abdomen| Service Date: 12/13/2017Gallbladder| Service Date: 2018Abdominal US, RUQ| Service Date: 08/01/2017HIDA scan| Service Date: 08/01/2017CT of abdomen andpelvis| Service Date: 08/01/2017CXR - Chest X-ray| Service Date: 08/01/2017Date of last PAP test| Service Date: 07/12/2017CT Angiogram of the Chest| Service Date: 10/14/2016Chest x-ray| Service Date: 10/14/2016CAT scan of abdomen and pelvis| Service Date: 07/21/2016Chest x- ray| Service Date: 07/21/2016CT of head and neck| Service Date: 01/26/2016CT of abdomen| Service Date: 01/26/2016Chest CT with contrast| Service Date: 01/26/2016Mammogram| Service Date: 03/17/2015CT of chest| Service Date: 11/26/2014CT brain with contrast| Service Date: 11/26/2014CT ofneck| Service Date: 11/26/2014Eye surgery| Service Date: 10/25/2014Mammogram| Service Date: 06/14/2014Shave biopsy| Service Date: 06/11/2014Mammogram - screening| Service Date: 06/02/2014Colonoscopy normal| Service Date: 03/05/2014Melanoma removalProcedureChemotherapy Medications acetaminophen(Tylenol 500 mg oral tablet) codeine-guaifenesin(Cheratussin AC 10 mg-100 mg/5 mL oral syrup), 10 mL, PO, q4h, PRN desonide topical(DesOwen 0.05% topical cream), 1 appl, topical, bid, 1 refills fluticasone nasal(fluticasone 50 mcg/inh nasal spray), See Instructions, 5 refills homatropine-hydrocodone(Hycodan 5 mg-1.5 mg/5 mL oral syrup), 5 mL, PO, q6h, PRN ipratropium nasal(ipratropium 21 mcg/inh (0.03%) nasal spray), 2 spray, each nostril, bid multivitamin, 1 tab, PO, Daily propranolol(propranolol 10 mg oral tablet), See Instructions, 6 refills tretinoin topical(Retin-A 0.01% topical gel), See Instructions Allergies Valtrexsevere rash allopurinolsevere rash sulfa drugshives Social History Smoking Status Never smoked cigarettes Alcohol - Denies Alcohol Use Frequency:1-2 times per year Exercise - Regular exercise Times per week:3-4 times/week Exercise type:Walking Tobacco - Denies Tobacco Use Family History Brain tumor: Sister. Cancer: Unknown. Lung cancer......: Father. Non-Hodgkin's lymphoma: Mother. Osteoporosis: Sister. Health Status Family Member(s) Immunizations Vaccine Date Status SARS-CoV-2 (COVID-19) mRNA BNT-162b2 vax 11/12/2021 Recorded Comments : 2023-04-17: Historical information-source unspecified SARS-CoV-2 (COVID-19) mRNA BNT-162b2 vax 03/02/2021 Recorded Comments : 2023-04-17: Historical information-source unspecified SARS-CoV-2 (COVID-19) mRNA BNT-162b2 vax 02/18/2021 Recorded Comments : 2023-04-17: Historical information-source unspecified SARS-CoV-2 (COVID-19) mRNA BNT-162b2 vax 01/30/2021 Recorded Comments : 2023-04-17: Historical information-source unspecified SARS-CoV-2 (COVID-19) mRNA BNT-162b2 vax 01/28/2021 Recorded Comments : 2023-04-17: Historical information-source unspecified influenza virus vaccine, inactivated 10/07/2020 Given zoster vaccine, inactivated 01/20/2020 Recorded influenza virus vaccine, inactivated 10/06/2019 Given zoster vaccine, inactivated 10/06/2019 Recorded influenza virus vaccine, inactivated 10/01/2018 Given pneumococcal 23-valent vaccine 01/13/2018 Given Comments : Other : Pt in office and given 01/13/2018. Documented late. pneumococcal 13-valent vaccine 07/12/2017 Given influenza virus vaccine, inactivated 09/2013 Recorded tetanus/diphtheria/pertuss, acel (Tdap) 09/10/2012 Recorded Comments : 2023-04-17: Historical information-source unspecified tetanus/diphtheria/pertuss, acel (Tdap) 06/2010 Recorded tetanus/diphtheria/pertuss, acel (Tdap) 06/01/2010 Recorded Comments : 2023-04-17: Historical information-source unspecified tetanus/diphtheria/pertuss, acel (Tdap) 08/01/2007 Recorded Comments : 2023-04-17: Historical information-source unspecified hepatitis B adult vaccine 09/12/2000 Recorded Comments : 2023-04-17: Historical information-source unspecified tetanus toxoids-diphtheria, Td (Adult) 04/28/1998 Recorded Comments : 2023-04-17: Historical information-source unspecified Recommendations Health Maintenance Pending(in the next year) OverDue Breast Cancer Screening due03/17/17nd every 731day Adult Influenza Vaccine due05/31/23and every 1year Medicare Annual Wellness Visit due10/17/23and every 1year Due Adult COVID-19 Vaccination due03/26/24Unknown Frequency Adult Social Determinants of Health Screening due03/26/24Unknown Frequency Adult Tdap/Td Vaccine due03/26/24Unknown Frequency Falls Plan of Care due03/26/24Unknown Frequency Due In Future Body Mass Index not due until03/25/25and every 366day Satisfied(in the past 1 year) Satisfied Body Mass Index on01/08/24.Satisfied by FELI Wooten Vanessa T Patient Care team information Care Team Personnel Name: VICKI Bragg Tara Position: Nurse Pract - Family Med Member Role: Lifetime Relationship Address: Address: [address] [place] [id number] [place] Name: MD Mohamud Amy L Position: Physician - Family Med Member Role: Primary Care Provider Address: Address: [address] [place] [id number] [place] Name: Benz, DO, Carloz Position: Resident Member Role: Lifetime Relationship Address: Address: [address] [facility] [address] [place] [address] [place] Care Team Related Persons Name: KAMARI SWANN Address: home [address] [place], [phone]
--- OUTSIDE RECORDS SUMMARY | 2024-04-20 00:07 | External Medical Summary | Continuity of Care Document ---
Author Name Unknown Organization [facility] [address] [facility] [address] [phone] Care Team Providers Care Planning Coordinator Name Role Phone CadeSendy Primary Care Physician [phone] [facility] [id number] Date(s): 03/19/24 - 03/19/24 [facility] [address] [facility] [address] [phone] [place] Encounter Diagnosis History of malignant melanoma of skin(Discharge Diagnosis) - 03/19/24 History of basal cell carcinoma of skin(Discharge Diagnosis) - 03/19/24 Seborrheic keratoses(Discharge Diagnosis) - 03/19/24 Discharge Disposition: Home or Self Care Attending Physician: MD Castillo Thomas A Allergies, Adverse Reactions, Alerts Substance Reaction Severity Status allopurinol severe rash Active predniSONE 1 Rash Resolved Valtrex severe rash Active sulfa drugs hives Active 1per pt Assessment and Plan Extracted from: Title:Clinical Document Author:MD Jonathan, Matthias Murcia Date:03/19/24 OUTPATIENT NOTE Name: BHANU CLAUDIO Patient Number:1 [id number] : 1950 Date of Service: 03/19/2024 Brayden Claudio returns for reevaluation. She has a prior history of malignant melanoma excised from the right anterior thigh and Mohs surgery on the left nasal bridge for basal cell carcinoma. Both sites are clear of recurrence. Review of systems medications allergies as noted on the chart. The patient is in stable health. Examination reveals pleasant well-nourished white female type I skin was alert and oriented x 3 with normal mood and affect. Examination of the head, neck, back, chest, arms, hands, fingers, abdominal area, legs, feet, and toes reveals findings as noted above and is otherwise unremarkable. Patient will return in 1 year for reevaluation Immunizations Given and Recorded Vaccine Date Status [...] Give n influenza virus vaccine, inactivated 09/01/13 Juveanl rded zoster vaccine, inactivated 01/20/20 Recorded zoster [...] 11Result Comment: 2023-04-17: Historical information-source unspecified Medications DesOwen 0.05% topical cream Start: 01/16/23 15:50:00 EST, 1 appl, topical, bid, Disp# 15 g, Refills: 1, Pharmacy: [facility] 2229 Start Date: 01/16/23 Status: Ordered fluticasone 50 mcg/inh nasal spray Start: 11/18/23 9:40:00 EST, See Instructions, Disp# 16 g, Refills: 5, Use 2 spray(s) in each nostril once daily, Pharmacy: [facility] 2229 Start Date: 11/18/23 Status: Ordered ipratropium 21 mcg/inh (0.03%) nasal spray Start: 12/12/23 9:37:00 EST, 2 spray, each nostril, bid, Disp# 1 each, Pharmacy: [facility] 2229 Start Date: 12/12/23 Stop Date: 12/17/23 Status: Ordered multivitamin Start: 03/22/21 9:07:00 EDT, 1 tab, PO, Daily Start Date: 03/22/21 Status: Ordered propranolol 10 mg oral tablet Start: 12/26/23 11:25:00 EST, See Instructions, Disp# 60 tab, Refills: 6, Take 1 tablet by mouth twice daily, Pharmacy: [facility] 2229 Start Date: 12/26/23 Status: Ordered Retin-A 0.01% topical gel Start: 03/17/24 17:22:00 EDT, See Instructions, Disp# 45 g, Refills: 0, APPLY TOPICALLY TO FACE AT BEDTIME, Pharmacy: [facility]/pharmacy #[id number] Start Date: 03/17/24 Status: Ordered Tylenol 500 mg oral tablet Start: 03/22/21 9:07:00 EDT, 2 po prn headache Start Date: 03/22/21 Status: Ordered Mental Status 03/19/24 Barriers to Learning one year None evide nt Mandatory Health Literacy Documentation Yes Health Literacy Communication Barriers N ever Primary Language Yemeni Problem List Condition Confirmation Course Effective Dates [...] Use Uns W/Withdrawal assessed on 07/14/2022 by [facility] Diagnosis Diagnosis Type Effective Dates Health Status Clinical Service Informant History of basal cell carcinoma of skin Discharge Diagnosis 03/19/24 Seborrheic keratoses Discharge Diagnosis 03/19/24 History of malignant melanoma of skin Discharge Diagnosis 03/19/24 Procedures Procedure Date Related Diagnosis Body Site [...] removal 40 Compl eted Procedure [address] [place] [address] Impression: 1. Suspected mild right maxillary sinus mucosal thickening 2. Otherwise, sinuses are clear [address] [place] [address] Impression: 1. Moderate dilatation of the proximal small bowel loops left upper quadrant of the abdomen characteristic of partial small bowel obstruction. 2. No other evidence for acute intra-abdominal or pelvic abnormality. 3. Additional nonacute findings [address] [place] [address] Impression: 1. No evidence of lymphadenopathy in this patient with history of CLL. Spleen is normal in size 4[facility] Impression: 1. No acute intrathoracic abnormality 2. No thoracic lymphadenopathy 3. Circumscribed 7 x 6 mm solid nodule of the basal left lower lobe appears stable to slightly increased in size dating back to 2016. This is considered a low suspicion nodule and may represent a pulmonary hamartoma 5[facility] Impression: 1. No cervical lymphadenopathy 2. Progression [...] mass or stricture identified. 9Dr. Samii at [facility] 10No acute process. 11[facility] Impression: 1.Status post cholecystectomy. No filling defects within the bile ducts 121. Moderate esophageal spasm. 2. Small hiatal hernia with moderate gastroesphageal reflux. 3. Moderate luminal narrowing of the terminal elieum with evidence for effacement of the normal mucosal pattern. 4. Inflammatory bowel process must be considered. Endoscopic evaluation is recommended. 13[facility] Impression: 1. The examined portion [...] small bowel distention on the current study. 19May [address] Dean 20[facility] Impression: 1. Cholelithiasis, mild gallbladder wall thickening [...] mm left lower lobe pulmonary nodule 27[facility] Impression: 1. Findings consistent with partial distal [...] lateral hernia unchanged. 6. Stable splenomegaly 28[facility] impression: Negative chest 29[facility] Impression: 1. Findings of moderately progressive axillary [...] 39R breast asymmetry, further evaluation is needed [id number] L. 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 She has a prior history of malignant melanoma excised from the right anterior thigh and Mohs surgery on the left nasal bridge for basal cell carcinoma. Both sites are clear of recurrence. Review of systems medications allergies as noted on the chart. The patient is in stable health. Examination reveals pleasant well-nourished white female type I skin was alert and oriented x 3 with normal mood and affect. Examination of the head, neck, back, chest, arms, hands, fingers, abdominal area, legs, feet, and toes reveals findings as noted above and is otherwise unremarkable. Patient will return in 1 year for reevaluation Electronic Signature on File Electronically Reviewed/Signed by: Iban Castillo MD Author Signature Dt/Tm:03/19/2024 04:10 PM Department of Dermatology [facility] Patient Care team information Care Team Personnel Name: VICKI Bragg Tara Position: Nurse Pract - Family Med Member Role: Lifetime Relationship Address: Address: [address] [place] [address] [place] Name: MD Mohamud Amy L Position: Physician - Family Med Member Role: Primary Care Provider Address: Address: [address] [facility] [address] [place] [address] [place] Name: DO Benz Sameer Position: Resident Member Role: Lifetime Relationship Address: Address: [address] [facility] [address] [place] [address] [place] Care Team Related Persons Name: KAMARI CLAUDIO Address: home [address] [place], [phone]
[2024-04-20] MEDS: ONDANSETRON INJ 2 MG/ML 2 ML VIAL IV STA (00:17)
[2024-04-20] MEDS: SODIUM CHLORIDE 0.9% 1,000 ML IV STA (00:17)
[2024-04-20] MEDS: fentaNYL citrate PF 100 MCG/2 ML VIAL IV PRN (00:26)
[2024-04-20 00:32] LABS: Basophils # (auto) 0.03 K/uL (0.00-0.20); Basophils % (auto) 0.3 %; Eosinophils # (auto) 0.19 K/uL (0.00-0.50); Eosinophils % (auto) 1.7 %; Hematocrit (blood only) 41.9 % (37.0-47.0); Hemoglobin 13.9 g/dl (12.0-16.0); Immature Granulocytes # (auto) 0.04 K/uL (0.01-0.20); Immature Granulocytes % (auto) 0.4 %; Lymphocytes # (auto) 1.47 K/uL (1.20-3.40); Lymphocytes % (auto) 12.9 %; Mean Corpuscular Hemoglobin 29.3 pg (25.0-34.0); Mean Corpuscular Hgb Conc 33.2 g/dL (32.0-36.0); Mean Corpuscular Volume 88.2 fL (80.0-100.0); Mean Platelet Volume 10.6 fL (9.4-12.4); Monocytes # (auto) 0.54 K/uL (0.11-0.59); Monocytes % (auto) 4.7 %; Neutrophils # (auto) 9.13 K/uL (1.40-6.50); Platelet Count 178 K/uL (130-400); RDW Coefficient of Variation 13.2 % (11.5-14.5); RDW Standard Deviation 42.5 fL (36.4-46.3); Red Blood Count 4.75 M/uL (4.20-5.40)
[2024-04-20 00:34] LABS: Appearance Urine Clear (Clear); Bacteria Urine Automated None Seen (None Seen); Bilirubin Urine Negative (Negative); Blood Urine Negative (Negative); Cast Urine Automated 0-2 /lpf (0-2); Color Urine Yellow; Epithelial Cell Urine Auto 0-2 /hpf (0-2); Glucose Urine UA Negative (Negative); Ketones Urine Negative (Negative); Leukocyte Esterase Urine 1+ (Negative); Nitrite Urine Negative (Negative); Protein Urine Negative (Negative); RBC Urine Automated 0-2 /hpf (0-2); Specific Gravity Urine 1.006 (1.000-1.030); Urobilinogen Urine Negative (Negative)
[2024-04-20 00:39] LABS: iSTAT Creatinine 0.6 mg/dl (0.6-1.3); iSTAT Hemoglobin 13.9 g/dl (12.0-16.0); iSTAT Ionized Calcium 1.23 mmol/l (1.12-1.32); iSTAT Potassium 3.8 mmol/L (3.3-5.0)
--- NOTE | 2024-04-20 00:40 | Emergency Department Note ---
Impression & Plan SBO (small bowel obstruction), Abdominal pain, Vomiting ED Provider Note NAME: BHANU SWANN AGE: 74 SEX: F : 1950 ARRIVES VIA: Walk-In INFORMANT: Patient, ED PROVIDER(S): Rod Yusuf DO CHIEF COMPLAINT: Abdominal pain HPI: The patient is a 74-year-old female who presented to the emergency department for an evaluation of abdominal pain. The patient has noticed lower abdominal pain which began throughout the course of the day. She has a history of bowel obstruction. She has had surgery in the past. The patient states this feels similar to her previous episode of bowel obstruction. The patient has had some constipation. She denies having any fever or chest pain. She denies having any difficulty breathing. She has noticed no swelling in her legs. ROS: See above HPI for pertinent positives & negatives. A total of 10 systems reviewed and were otherwise negative. PAST MEDICAL HISTORY: See Below PAST SURGICAL HISTORY: See Below FAMILY HISTORY: See Below SOCIAL HISTORY: See Below HOME MEDICATIONS: See Below ALLERGIES: See Below VITALS: See Below PHYSICAL EXAMINATION: GENERAL: The patient is awake and alert. The patient is anxious and uncomfortable appearing. EYES: The conjunctivae are clear. The pupils are round and reactive. EARS, NOSE, MOUTH AND THROAT: The nose is without any evidence of any deformity. NECK: The neck is nontender and supple. RESPIRATORY: Normal respiratory effort is noted there is no evidence of wheezing rhonchi or rales CARDIOVASCULAR: Regular rate and rhythm noted there no murmurs rubs or gallops normal S1 normal S2. GASTROINTESTINAL: The abdomen is soft and mildly distended. There is diffuse tenderness to palpation especially in the lower abdomen. There is no specific guarding. MUSCULOSKELETAL/EXTREMITIES: There is no evidence of gross deformity full range of motion is noted in the hips and shoulders. SKIN: There is no obvious evidence of any rash. There are no petechiae, pallor or cyanosis noted. NEUROLOGIC: Patient is awake alert and oriented x3 MEDICAL DECISION MAKING: The patient is a 74-year-old female who presented to the emergency department for an evaluation of abdominal pain. The patient has a history of small bowel obstruction in the past. She has not had issues for a few years but she noticed that this felt similar to her previous episodes. The patient was treated with IV fluids and IV pain medication in the emergency department. She was reevaluated multiple times. On reevaluation she was feeling much better. I discussed the patient's laboratory and radiographic studies with her. I discussed her condition with the on-call [facility] hospitalist. They have agreed to evaluate the patient in the emergency department for further management and disposition. Triage Nursing notes reviewed. Prior medical records reviewed Vital Signs: reviewed and remarkable for no significant abnormalities Differential diagnosis: Etiologies such as appendicitis, diverticulitis, obstruction, inflammatory bowel disease, renal colic, PUD, biliary pathology, pancreatitis, mesenteric ischemia, aortic pathology, infections, genitourinary, UTI, perforated viscus, as well as others were entertained. ER treatment provided: See below Diagnostics interpreted by me: ECG: none Cardiac Monitoring: An order was placed for continuous cardiac monitoring. The monitor shows a rate of 70 bpm with sinus rhythm. Laboratory studies: As stated above and show below. Imaging studies: See below. Radiographic imaging was reviewed by myself Consultation(s): I discussed the patient's condition with the on-call [facility] hospitalist, Dr. Yeager. He is agreed to evaluate the patient in the emergency department. Past Med/Surg History Problem List (Updated 04/20/24 @ 02:33 by Rod Yusuf DO) Vomiting (Acute) Headache Small bowel obstruction (Acute) Abdominal pain (Acute) Encounter for pre-operative examination Weakness (Acute) SBO (small bowel obstruction) (Acute) Drug rash (Acute) Cough (Acute) Allergic reaction (Acute) Adverse reaction to drug (Acute) Acute cholecystitis Osteoporosis (Chronic ~01/2009) Drug rash (Acute) Rash (Acute) Essential tremor bilateral hands CLL (chronic lymphocytic leukemia) (Acute) hx chemo (numbers cont to be monitored) follow with oncology Medical History History of intestinal obstruction determined it was from her gallbladder, no issues since gallbladder removed Hx of basal cell carcinoma on face History of anemia Migraine hx Elevated cholesterol hx-currently under control Surgical History Hx of basal cell carcinoma excision on face History of esophagogastroduodenoscopy (EGD) History of colonoscopy History of cholecystectomy Hx of melanoma excision right thigh History of cardiac radiofrequency ablation hx irregular heartbeat "fixed problem" 2016 - follows with Dr. Jarvis Family History Other Family history non-contributory No family history of adverse response to anesthesia Social History Smoking Status: Never smoker Second Hand Exposure: Yes (hx growing up); Do You Dip or Chew Tobacco: No; Hx Alcohol Use: Yes Alcohol type: wine Hx Substance Use: No Preferred Language: Divehi Communication Ability: Effective Sales Receptionist Required: No Beliefs That Will Affect Care: None Current Living Situation: Spouse and Family Feels Safe at Home: Yes Assistive Devices: Denture - Upper and Glasses Allergies Allergies Allergy/AdvReac Type Severity Reaction Status Date / Time allopurinol Allergy Intermediate SKIN Verified 02/24/24 07:17 REACTION Bactrim Allergy Intermediate SKIN Verified 07/01/18 21:06 REACTION prednisone Allergy Intermediate SKIN Verified 02/24/24 07:17 REACTION Sulfa (Sulfonamide Allergy Intermediate HIVES Verified 02/24/24 07:17 Antibiotics) sulfamethoxazole Allergy Intermediate SKIN Verified 02/24/24 07:17 REACTION trimethoprim Allergy Intermediate SKIN Verified 02/24/24 07:17 REACTION valacyclovir Allergy Intermediate SKIN Verified 02/24/24 07:17 REACTION Home Meds Home Medications Medication Instructions Recorded Confirmed lysine 500 mg tablet (L-Lysine) 500 mg PO QAM 05/02/21 04/20/24 multivitamin 1 tab PO QAM 05/02/21 04/20/24 propranolol 10 mg tablet 10 mg PO BID 05/02/21 04/20/24 Results & Data (ED) Vital Signs Vital Signs - 24 hr 04/20/24 00:06 04/20/24 00:22 04/20/24 00:22 Temperature 36.6 C Temperature Source Temporal Artery Scan Pulse Rate 87 72 Pulse Rate [Apical] 73 Pulse Rhythm Regular Regular Pulse Rhythm [Apical] Regular Pulse Strength Normal Respiratory Rate 18 18 15 Respiratory Effort / Characteristics Non-Labored Spontaneous Non-Labored Respiratory Depth Normal Normal Respiratory Pattern Regular Regular Blood Pressure 135/81 Blood Pressure [Left Arm] 156/94 H Blood Pressure Mean 99 Blood Pressure Mean [Left Arm] 114 Blood Pressure Position Sitting Pulse Oximetry 97 95 95 Oxygen Delivery Method Room Air Room Air Room Air Sepsis Recent Fever Within 48 Hours No Sepsis New/Unexplained Change in Mental Status N/A Sepsis Action Taken by Nursing No Action Required 04/20/24 00:24 04/20/24 00:25 04/20/24 01:00 Temperature Temperature Source Pulse Rate 72 74 71 Pulse Rate [Apical] Pulse Rhythm Pulse Rhythm [Apical] Pulse Strength Respiratory Rate 18 14 Respiratory Effort / Characteristics Respiratory Depth Respiratory Pattern Blood Pressure 156/94 H 131/97 Blood Pressure [Left Arm] Blood Pressure Mean 114 108 Blood Pressure Mean [Left Arm] Blood Pressure Position Pulse Oximetry 97 93 Oxygen Delivery Method Sepsis Recent Fever Within 48 Hours Sepsis New/Unexplained Change in Mental Status Sepsis Action Taken by Nursing 04/20/24 01:30 Temperature Temperature Source Pulse Rate 70 Pulse Rate [Apical] Pulse Rhythm Pulse Rhythm [Apical] Pulse Strength Respiratory Rate 19 Respiratory Effort / Characteristics Respiratory Depth Respiratory Pattern Blood Pressure 133/86 Blood Pressure [Left Arm] Blood Pressure Mean 101 Blood Pressure Mean [Left Arm] Blood Pressure Position Pulse Oximetry 92 Oxygen Delivery Method Sepsis Recent Fever Within 48 Hours Sepsis New/Unexplained Change in Mental Status Sepsis Action Taken by [facility] Medications Current Medication List: was personally reviewed by me Laboratory Data Attestation: I reviewed the patient's lab results. 04/20/24 00:16 04/20/24 00:16 Lab Results 04/20/24 04/20/24 Range/Units 00:16 00:24 WBC 11.40 H (4.8-10.8) K/ul RBC 4.75 (4.20-5.40) M/uL Hgb 13.9 (12.0-16.0) g/dl POC Hgb 13.9 (12.0-16.0) g/dl Hct 41.9 (37.0-47.0) % POC Hct 41 (37-47) % MCV 88.2 (80.0-100.0) fL MCH 29.3 (25.0-34.0) pg MCHC 33.2 (32.0-36.0) g/dL RDW Std Deviation 42.5 (36.4-46.3) fL RDW Coeff of Suki 13.2 (11.5-14.5) % Plt Count 178 (130-400) K/uL MPV 10.6 (9.4-12.4) fL Immature Gran % (Auto) 0.4 % Neut % (Auto) 80.0 % Lymph % (Auto) 12.9 % [place] % (Auto) 4.7 % Eos % (Auto) 1.7 % Baso % (Auto) 0.3 % Neut # (Auto) 9.13 H (1.40-6.50) K/uL Lymph # (Auto) 1.47 (1.20-3.40) K/uL [place] # (Auto) 0.54 (0.11-0.59) K/uL Eos # (Auto) 0.19 (0.00-0.50) K/uL Baso # (Auto) 0.03 (0.00-0.20) K/uL Immature Gran # (Auto) 0.04 (0.01-0.20) K/uL POC Sodium 140 (135-144) mmol/L Sodium 139 (136-145) mmol/L POC Potassium 3.8 (3.3-5.0) mmol/L Potassium 3.9 (3.5-5.1) mmol/L POC Chloride 104 (101-112) mmol/L Chloride 105 (98-107) mmol/L Carbon Dioxide 26 (21-32) mmol/L POC Total CO2 26 (24-31) mmol/L Anion Gap 8 (3-11) POC Anion Gap 15.0 L (16-25) mmol/L POC BUN 14 (7-18) mg/dl BUN 15 (6-23) mg/dl Creatinine 0.62 (0.6-1.2) mg/dl POC Creatinine 0.6 (0.6-1.3) mg/dl Est Cr Clr Drug Dosing 79.8 ml/min Est GFR ( Amer) 104.4 ml/min Est GFR (Non-Af Amer) 90.1 ml/min BUN/Creatinine Ratio 24.2 H (10-20) Glucose 117 H (70-99(Fasting)) mg/dl POC Glucose (other) 117 H (70-99) mg/dl Calcium 9.8 (8.6-10.3) mg/dl POC Ioniz Calcium [place] 1.23 (1.12-1.32) mmol/l Total Bilirubin 0.5 (0.2-1.0) mg/dl AST 23 (13-39) U/L ALT 16 (7-52) U/L Alkaline Phosphatase 93 (34-104) U/L Total Protein 7.4 (6.0-8.3) gm/dl Albumin 4.5 (3.4-5.0) gm/dl Globulin 2.9 (2.5-4.0) gm/dl Albumin/Globulin Ratio 1.6 (0.9-2) Lipase 25 (11-82) U/L Urine Color Yellow Urine Appearance Clear (Clear) Urine pH 5.0 (4.5-7.5) Ur Specific [place] 1.006 (1.000-1.030) Urine Protein Negative (Negative) Urine Glucose (UA) Negative (Negative) Urine Ketones Negative (Negative) Urine Blood Negative (Negative) Urine Nitrite Negative (Negative) Urine Bilirubin Negative (Negative) Urine Urobilinogen Negative (Negative) Ur Leukocyte Esterase 1+ H (Negative) Urine WBC (Auto) 6-10 H (0-5) /hpf Urine RBC (Auto) 0-2 (0-2) /hpf U Hyaline Cast (Auto) 0-2 (0-2) /lpf U Epithel Cells (Auto) 0-2 (0-2) /hpf Urine Bacteria (Auto) None Seen (None Seen) Administered Medications Fentanyl Citrate (Fentanyl Citrate Pf 100 Mcg/2 Ml Vial) 50 mcg IV Q15M PRN PRN Reason: Pain Stop: 05/04/24 00:19 Last Admin: 04/20/24 01:25 Dose: 50 mcg Documented By: Admin: 04/20/24 00:26 Dose: 50 mcg Documented By: LINDA Discontinued Medications Sodium Chloride (Nss) 1,000 mls @ 999 mls/hr IV .Q1H1M STA Stop: 04/20/24 01:12 Last Admin: 04/20/24 00:17 Dose: 999 mls/hr Documented By: LINDA Ioversol (Optiray 320 100ml) 100 ml IV ONCE ONE Stop: 04/20/24 00:47 Last Admin: 04/20/24 00:46 Dose: 91 ml Documented By: SHEBA Ondansetron HCl (Ondansetron Inj 2 Mg/Ml 2 Ml Vial) 4 mg IV NOW STA Stop: 04/20/24 00:13 Last Admin: 04/20/24 00:17 Dose: 4 mg Documented By: LINDA Imaging Data Attestation: I personally reviewed and interpreted this imaging study as follows: My Impression: CT of the abdomen and pelvis was obtained in the emergency department. My interpretation is no free air, dilated loops of small bowel are noted, final report below. Radiologist's Impression: Abdomen/Pelvis CT 04/20/24 00:12 Exam(s): CT ABDOMEN + PELVIS With Contrast IV Amt: 91 ML OPTIRAY 320 EXAM: CT Abdomen and Pelvis With Intravenous Contrast CLINICAL HISTORY: Reason for exam: SBO. TECHNIQUE: Axial computed tomography images of the abdomen and pelvis with intravenous contrast. CTDI is 22 mGy and DLP is 1072.57 mGy-cm. Automated exposure control was utilized for the study. A dose lowering technique was utilized adhering to the principles of ALARA. CONTRAST: Patient received 91 ML OPTIRAY 320 of IV contrast COMPARISON: 02/04/2023. FINDINGS: Lung bases: Minimal bilateral lower lobe subpleural atelectasis. Heart: Unremarkable. No cardiomegaly. No significant pericardial effusion. Normal cardiac size. Mediastinum: Mild to moderate hiatal hernia. Otherwise stomach unremarkable. ABDOMEN: Liver: Unremarkable. No mass. Gallbladder and bile ducts: Status post cholecystectomy. No ductal dilation. Pancreas: Unremarkable. No mass. No ductal dilation. Spleen: Unremarkable. No splenomegaly. Adrenals: Unremarkable. No mass. Kidneys and ureters: Low-attenuation structure within the lower pole of the right kidney measuring 9 mm consistent with simple cyst. No further follow-up imaging recommended. Otherwise normal right kidney. Normal left kidney. No hydronephrosis. Stomach and bowel: Multiple loops of small bowel distended in the left upper quadrant to at least 4.4 cm concerning for small bowel obstruction, zone of transition indeterminate. Mild scattered diverticulosis throughout the colon with no signs of diverticulitis. Decompression of the descending colon. PELVIS: Appendix: Normal appendix. Bladder: Unremarkable. No mass. Reproductive: Anteverted uterus. Left ovarian simple cyst measuring 2. 3 x 2.2 cm. ABDOMEN and PELVIS: Intraperitoneal space: Mild to moderate free fluid in the cul-de-sac, nonspecific. No free air. Bones/joints: Diffuse osteopenia with mild degenerative disease of the lumbar spine, bilateral SI joints and hips. No acute fracture. No dislocation. Soft tissues: Tiny fat-containing umbilical hernia. Vasculature: Unremarkable. No abdominal aortic aneurysm. Lymph nodes: Unremarkable. No enlarged lymph nodes. IMPRESSION: 1. Small bowel obstruction with distended small bowel loops in the left upper quadrant, zone of transition indeterminate. No acute appendicitis. Mild diverticulosis with no signs of diverticulitis. 2. Nonspecific free fluid in the cul-de-sac with left ovarian simple cyst measuring 2.3 cm. 3. Mild to moderate hiatal hernia. 4. Status post cholecystectomy with no biliary distention. Otherwise unremarkable abdominal viscera with no acute process. Electronically signed by: Destini Ramsay MD 04/20/24 02:27 AM Discharge Plan Visit Data Chief Complaint: GI Assessment Stated Complaint: STOMACH BLOCKAGE ED Provider: Rod Yusuf Discharge Problem: SBO (small bowel obstruction), Abdominal pain, Vomiting Patient Disposition: Being Evaluated by Hospitalist Forms [facility] Prescriptions Prescriptions: No Action multivitamin Tablet 1 tab PO QAM propranolol 10 mg Tablet 10 mg PO BID lysine [L-Lysine] 500 mg Tablet 500 mg PO QAM Referrals Referrals: Sendy Mohamud MD [Primary Care Provider] - Discharge Problem: Abdominal pain Qualifiers: Abdominal location: lower abdomen, unspecified Qualified Code(s): R10.30 - Lower abdominal pain, unspecified Vomiting Qualifiers: Vomiting type: unspecified Nausea presence: with nausea Qualified Code(s): R 11.2 - Nausea with vomiting, unspecified
[2024-04-20] MEDS: OPTIRAY 320 100ml IV ONE (00:46)
[2024-04-20 00:49] LABS: Albumin Globulin Ratio 1.6 (0.9-2); Albumin Level 4.5 gm/dl (3.4-5.0); BUN Creatinine Ratio 24.2 (10-20); Bilirubin,Total 0.5 mg/dl (0.2-1.0); Calcium 9.8 mg/dl (8.6-10.3); Creatinine Clr Calc Pharmacy 79.8 ml/min; Est GFR (African American) 104.4 ml/min; Est GFR (Non-African American) 90.1 ml/min; Globulin 2.9 gm/dl (2.5-4.0); Potassium 3.9 mmol/L (3.5-5.1); Total Protein 7.4 gm/dl (6.0-8.3)
--- NOTE | 2024-04-20 02:28 | CT Scan Report ---
Exam(s): CT ABDOMEN + PELVIS With Contrast IV Amt: 91 ML OPTIRAY 320 EXAM: CT Abdomen and Pelvis With Intravenous Contrast CLINICAL HISTORY: Reason for exam: SBO. TECHNIQUE: Axial computed tomography images of the abdomen and pelvis with intravenous contrast. CTDI is 22 mGy and DLP is 1072.57 mGy-cm. Automated exposure control was utilized for the study. A dose lowering technique was utilized adhering to the principles of ALARA. CONTRAST: Patient received 91 ML OPTIRAY 320 of IV contrast COMPARISON: 02/04/2023. FINDINGS: Lung bases: Minimal bilateral lower lobe subpleural atelectasis. Heart: Unremarkable. No cardiomegaly. No significant pericardial effusion. Normal cardiac size. Mediastinum: Mild to moderate hiatal hernia. Otherwise stomach unremarkable. ABDOMEN: Liver: Unremarkable. No mass. Gallbladder and bile ducts: Status post cholecystectomy. No ductal dilation. Pancreas: Unremarkable. No mass. No ductal dilation. Spleen: Unremarkable. No splenomegaly. Adrenals: Unremarkable. No mass. Kidneys and ureters: Low-attenuation structure within the lower pole of the right kidney measuring 9 mm consistent with simple cyst. No further follow-up imaging recommended. Otherwise normal right kidney. Normal left kidney. No hydronephrosis. Stomach and bowel: Multiple loops of small bowel distended in the left upper quadrant to at least 4.4 cm concerning for small bowel obstruction, zone of transition indeterminate. Mild scattered diverticulosis throughout the colon with no signs of diverticulitis. Decompression of the descending colon. PELVIS: Appendix: Normal appendix. Bladder: Unremarkable. No mass. Reproductive: Anteverted uterus. Left ovarian simple cyst measuring 2. 3 x 2.2 cm. ABDOMEN and PELVIS: Intraperitoneal space: Mild to moderate free fluid in the cul-de-sac, nonspecific. No free air. Bones/joints: Diffuse osteopenia with mild degenerative disease of the lumbar spine, bilateral SI joints and hips. No acute fracture. No dislocation. Soft tissues: Tiny fat-containing umbilical hernia. Vasculature: Unremarkable. No abdominal aortic aneurysm. Lymph nodes: Unremarkable. No enlarged lymph nodes. IMPRESSION: 1. Small bowel obstruction with distended small bowel loops in the left upper quadrant, zone of transition indeterminate. No acute appendicitis. Mild diverticulosis with no signs of diverticulitis. 2. Nonspecific free fluid in the cul-de-sac with left ovarian simple cyst measuring 2.3 cm. 3. Mild to moderate hiatal hernia. 4. Status post cholecystectomy with no biliary distention. Otherwise unremarkable abdominal viscera with no acute process. Electronically signed by: Destini Ramsay MD 04/20/24 02:27 AM
--- NOTE | 2024-04-20 03:26 | History & Physical Report ---
Date of Service April 20, 2024 Assessment & Plan (1) Small bowel obstruction: (2) Ovarian cyst, left: (3) Vomiting: (4) Malignant melanoma of lower limb: (5) CLL (chronic lymphocytic leukemia): (6) Essential tremor: Plan Small bowel obstruction- CT scan with indeterminate transition zone History of previous small bowel obstruction requiring admission from 07/14- 07/16/2022 NPO Status post 1 L normal saline in the ED Placed on LR at 100 mL/h Zofran 4 mg IV every 6 hours as needed Pantoprazole 40 mg IV daily Acetaminophen 1 g IV every 8 hours as needed for mild pain or fever Toradol 15 mg IV every 6 hours as needed for moderate pain Morphine sulfate 4 mg IV every 3 hours as needed for severe pain Malignant melanoma of lower limb/CLL- Not currently on treatment Left ovarian cyst- Potentially of concern in a 74-year-old female Will need to follow-up with [employer] History of Present Illness Chief Complaint: The patient presents to the emergency department with the acute onset of lower abdominal pain that began earlier in the day today, accompanied by nausea without vomiting Primary Care Provider: Sendy Mohamud MD The patient is a 74-year-old female with past medical history including small bowel obstruction, malignant melanoma of lower limb, essential tremor, CLL and osteoporosis. She presents to the emergency department with acute onset of lower abdominal pain by nausea without vomiting that began earlier in the day today. Her last admission was from 07/14-07/16/2022 for small bowel obstruction, that resolved spontaneously with conservative treatment. She denies any recent change in pain eating habits. She denies any recent travels or sick exposures. She had been somewhat constipated, but developed diarrhea earlier in the day today as well. CT scan of abdomen pelvis emergency department is consistent with small bowel obstruction, with indeterminate transition zone. There is also noted a left ovarian cyst of 2.3 cm in size, with free pelvic fluid. Allergies Allergy/AdvReac Type Severity Reaction Status Date / Time allopurinol Allergy Intermediate SKIN Verified 02/24/24 07:17 REACTION Bactrim Allergy Intermediate SKIN Verified 07/01/18 21:06 REACTION prednisone Allergy Intermediate SKIN Verified 02/24/24 07:17 REACTION Sulfa (Sulfonamide Allergy Intermediate HIVES Verified 02/24/24 07:17 Antibiotics) sulfamethoxazole Allergy Intermediate SKIN Verified 02/24/24 07:17 REACTION trimethoprim Allergy Intermediate SKIN Verified 02/24/24 07:17 REACTION valacyclovir Allergy Intermediate SKIN Verified 02/24/24 07:17 REACTION Home Medications Medication Instructions Recorded Confirmed Type lysine 500 mg tablet (L-Lysine) 500 mg PO QAM 05/02/21 04/20/24 History multivitamin 1 tab PO QAM 05/02/21 04/20/24 History propranolol 10 mg tablet 10 mg PO BID 05/02/21 04/20/24 History Past Med/Surg History Problem List (Updated 04/20/24 @ 05:12 by Fausto David MD) Ovarian cyst, left Vomiting (Acute) Headache Small bowel obstruction (Acute) Abdominal pain (Acute) Encounter for pre-operative examination Weakness (Acute) SBO (small bowel obstruction) (Acute) Drug rash (Acute) Cough (Acute) Allergic reaction (Acute) Adverse reaction to drug (Acute) Acute cholecystitis Osteoporosis (Chronic ~01/2009) Drug rash (Acute) Rash (Acute) Essential tremor bilateral hands CLL (chronic lymphocytic leukemia) (Acute) hx chemo (numbers cont to be monitored) follow with oncology Medical History History of intestinal obstruction determined it was from her gallbladder, no issues since gallbladder removed Hx of basal cell carcinoma on face History of anemia Migraine hx Elevated cholesterol hx-currently under control Surgical History Hx of basal cell carcinoma excision on face History of esophagogastroduodenoscopy (EGD) History of colonoscopy History of cholecystectomy Hx of melanoma excision right thigh History of cardiac radiofrequency ablation hx irregular heartbeat "fixed problem" 2016 - follows with Dr. Jarvis Family History Other Family history non-contributory No family history of adverse response to anesthesia Social History Smoking Status: Never smoker Second Hand Exposure: Yes (hx growing up); Do You Dip or Chew Tobacco: No; Hx Alcohol Use: Yes Alcohol type: wine Hx Substance Use: No Preferred Language: Ukrainian Communication Ability: Effective Plate Former Required: No Beliefs That Will Affect Care: None Current Living Situation: Spouse and Family Feels Safe at Home: Yes Assistive Devices: Denture - Upper and Glasses Review of Systems Review of Systems: The patient denies chest pain, palpitations, shortness of breath, dyspnea on exertion, cough, lower extremity swelling, sore throat, fevers, chills, sweats, vomiting, blood in urine or stool, dysuria, urinary frequency or urgency, lightheadedness, dizziness, headache, memory loss, loss of consciousness, rash, abnormal bruising or bleeding, imbalance, focal or generalized weakness, numbness or tingling in arms or legs, generalized arthralgias or myalgias, back or neck pain, or night sweats. The review of systems is otherwise negative other than for that already noted above, and at least 10 systems have been reviewed. Physical Exam Physical Exam: The patient is awake, alert and oriented 3, well developed and well nourished, normocephalic and atraumatic, lying in bed and in no acute distress. HEENT--PERRL, EOMI, mucous membranes and oropharynx dry. Neck--supple. No JVD. No bruits. Thyroid normal, trachea midline, no ad enopathy. Heart--normal S1 and S2. No murmurs, rubs or gallops. Lungs--clear bilaterally, no respiratory distress, no accessory muscle use. Abdomen--decreased bowel sounds bowel. Mildly distended and firm. Generalized mild pain. Extremities--No edema. There are good distal pulses b/l. Dermatologic--normal skin turgor, normal color, no abnormal lymph nodes, no rash. Neurologic--cranial nerves II through XII grossly intact. Rheumatologic--normal range of motion. Psychiatric--normal affect. Results & Data Results & Data Vital Signs (Past 12 Hours) Vital Signs Temp Pulse Pulse Resp BP BP Pulse Ox 04/20/24 03:00 72 17 134/78 97 04/20/24 02:30 64 16 121/66 96 04/20/24 02:00 69 20 132/66 94 04/20/24 01:30 70 19 133/86 92 04/20/24 01:00 71 14 131/97 93 04/20/24 00:25 74 04/20/24 00:24 72 18 156/94 H 97 04/20/24 00:22 72 15 95 04/20/24 00:22 73 18 156/94 H 95 04/20/24 00:06 36.6 C 87 18 135/81 97 O2 Del Method 04/20/24 03:00 04/20/24 02:30 04/20/24 02:00 04/20/24 01:30 04/20/24 01:00 04/20/24 00:25 04/20/24 00:24 04/20/24 00:22 Room Air 04/20/24 00:22 Room Air 04/20/24 00:06 Room Air Laboratory Results Laboratory Results WBC 11.40 K/ul (4.8-10.8) H 04/20/24 00:16 RBC 4.75 M/uL (4.20-5.40) 04/20/24 00:16 Hgb 13.9 g/dl (12.0-16.0) 04/20/24 00:16 POC Hgb 13.9 g/dl (12.0-16.0) 04/20/24 00:24 Hct 41.9 % (37.0-47.0) 04/20/24 00:16 POC Hct 41 % (37-47) 04/20/24 00:24 MCV 88.2 fL (80.0-100.0) 04/20/24 00:16 MCH 29.3 pg (25.0-34.0) 04/20/24 00:16 MCHC 33.2 g/dL (32.0-36.0) 04/20/24 00:16 RDW Std Deviation 42.5 fL (36.4-46.3) 04/20/24 00:16 RDW Coeff of Suki 13.2 % (11.5-14.5) 04/20/24 00:16 Plt Count 178 K/uL (130-400) 04/20/24 00:16 MPV 10.6 fL (9.4-12.4) 04/20/24 00:16 Immature Gran % (Auto) 0.4 % 04/20/24 00:16 Neut % (Auto) 80.0 % 04/20/24 00:16 Lymph % (Auto) 12.9 % 04/20/24 00:16 [place] % (Auto) 4.7 % 04/20/24 00:16 Eos % (Auto) 1.7 % 04/20/24 00:16 Baso % (Auto) 0.3 % 04/20/24 00:16 Neut # (Auto) 9.13 K/uL (1.40-6.50) H 04/20/24 00:16 Lymph # (Auto) 1.47 K/uL (1.20-3.40) 04/20/24 00:16 [place] # (Auto) 0.54 K/uL (0.11-0.59) 04/20/24 00:16 Eos # (Auto) 0.19 K/uL (0.00-0.50) 04/20/24 00:16 Baso # (Auto) 0.03 K/uL (0.00-0.20) 04/20/24 00:16 Immature Gran # (Auto) 0.04 K/uL (0.01-0.20) 04/20/24 00:16 POC Sodium 140 mmol/L (135-144) 04/20/24 00:24 Sodium 139 mmol/L (136-145) 04/20/24 00:16 POC Potassium 3.8 mmol/L (3.3-5.0) 04/20/24 00:24 Potassium 3.9 mmol/L (3.5-5.1) 04/20/24 00:16 POC Chloride 104 mmol/L (101-112) 04/20/24 00:24 Chloride 105 mmol/L (98-107) 04/20/24 00:16 Carbon Dioxide 26 mmol/L (21-32) 04/20/24 00:16 POC Total CO2 26 mmol/L (24-31) 04/20/24 00:24 Anion Gap 8 (3-11) 04/20/24 00:16 POC Anion Gap 15.0 mmol/L (16-25) L 04/20/24 00:24 POC BUN 14 mg/dl (7-18) 04/20/24 00:24 BUN 15 mg/dl (6-23) 04/20/24 00:16 Creatinine 0.62 mg/dl (0.6-1.2) 04/20/24 00:16 POC Creatinine 0.6 mg/dl (0.6-1.3) 04/20/24 00:24 Est Cr Clr Drug Dosing 79.8 ml/min 04/20/24 00:16 Est GFR ( Amer) 104.4 ml/min 04/20/24 00:16 Est GFR (Non-Af Amer) 90.1 ml/min 04/20/24 00:16 BUN/Creatinine Ratio 24.2 (10-20) H 04/20/24 00:16 Glucose 117 mg/dl (70-99(Fasting)) H 04/20/24 00:16 POC Glucose (other) 117 mg/dl (70-99) H 04/20/24 00:24 Calcium 9.8 mg/dl (8.6-10.3) 04/20/24 00:16 POC Ioniz Calcium [place] 1.23 mmol/l (1.12-1.32) 04/20/24 00:24 Total Bilirubin 0.5 mg/dl (0.2-1.0) 04/20/24 00:16 AST 23 U/L (13-39) 04/20/24 00:16 ALT 16 U/L (7-52) 04/20/24 00:16 Alkaline Phosphatase 93 U/L (34-104) 04/20/24 00:16 Total Protein 7.4 gm/dl (6.0-8.3) 04/20/24 00:16 Albumin 4.5 gm/dl (3.4-5.0) 04/20/24 00:16 Globulin 2.9 gm/dl (2.5-4.0) 04/20/24 00:16 Albumin/Globulin Ratio 1.6 (0.9-2) 04/20/24 00:16 Lipase 25 U/L (11-82) 04/20/24 00:16 Urine Color Yellow 04/20/24 00:16 Urine Appearance Clear (Clear) 04/20/24 00:16 Urine pH 5.0 (4.5-7.5) 04/20/24 00:16 Ur Specific [place] 1.006 (1.000-1.030) 04/20/24 00:16 Urine Protein Negative (Negative) 04/20/24 00:16 Urine Glucose (UA) Negative (Negative) 04/20/24 00:16 Urine Ketones Negative (Negative) 04/20/24 00:16 Urine Blood Negative (Negative) 04/20/24 00:16 Urine Nitrite Negative (Negative) 04/20/24 00:16 Urine Bilirubin Negative (Negative) 04/20/24 00:16 Urine Urobilinogen Negative (Negative) 04/20/24 00:16 Ur Leukocyte Esterase 1+ (Negative) H 04/20/24 00:16 Urine WBC (Auto) 6-10 /hpf (0-5) H 04/20/24 00:16 Urine RBC (Auto) 0-2 /hpf (0-2) 04/20/24 00:16 U Hyaline Cast (Auto) 0-2 /lpf (0-2) 04/20/24 00:16 U Epithel Cells (Auto) 0-2 /hpf (0-2) 04/20/24 00:16 Urine Bacteria (Auto) None Seen (None Seen) 04/20/24 00:16 Impressions Abdomen/Pelvis CT 04/20/24 00:12 Exam(s): CT ABDOMEN + PELVIS With Contrast IV Amt: 91 ML OPTIRAY 320 EXAM: CT Abdomen and Pelvis With Intravenous Contrast CLINICAL HISTORY: Reason for exam: SBO. TECHNIQUE: Axial computed tomography images of the abdomen and pelvis with intravenous contrast. CTDI is 22 mGy and DLP is 1072.57 mGy-cm. Automated exposure control was utilized for the study. A dose lowering technique was utilized adhering to the principles of ALARA. CONTRAST: Patient received 91 ML OPTIRAY 320 of IV contrast COMPARISON: 02/04/2023. FINDINGS: Lung bases: Minimal bilateral lower lobe subpleural atelectasis. Heart: Unremarkable. No cardiomegaly. No significant pericardial effusion. Normal cardiac size. Mediastinum: Mild to moderate hiatal hernia. Otherwise stomach unremarkable. ABDOMEN: Liver: Unremarkable. No mass. Gallbladder and bile ducts: Status post cholecystectomy. No ductal dilation. Pancreas: Unremarkable. No mass. No ductal dilation. Spleen: Unremarkable. No splenomegaly. Adrenals: Unremarkable. No mass. Kidneys and ureters: Low-attenuation structure within the lower pole of the right kidney measuring 9 mm consistent with simple cyst. No further follow-up imaging recommended. Otherwise normal right kidney. Normal left kidney. No hydronephrosis. Stomach and bowel: Multiple loops of small bowel distended in the left upper quadrant to at least 4.4 cm concerning for small bowel obstruction, zone of transition indeterminate. Mild scattered diverticulosis throughout the colon with no signs of diverticulitis. Decompression of the descending colon. PELVIS: Appendix: Normal appendix. Bladder: Unremarkable. No mass. Reproductive: Anteverted uterus. Left ovarian simple cyst measuring 2. 3 x 2.2 cm. ABDOMEN and PELVIS: Intraperitoneal space: Mild to moderate free fluid in the cul-de-sac, nonspecific. No free air. Bones/joints: Diffuse osteopenia with mild degenerative disease of the lumbar spine, bilateral SI joints and hips. No acute fracture. No dislocation. Soft tissues: Tiny fat-containing umbilical hernia. Vasculature: Unremarkable. No abdominal aortic aneurysm. Lymph nodes: Unremarkable. No enlarged lymph nodes. IMPRESSION: 1. Small bowel obstruction with distended small bowel loops in the left upper quadrant, zone of transition indeterminate. No acute appendicitis. Mild diverticulosis with no signs of diverticulitis. 2. Nonspecific free fluid in the cul-de-sac with left ovarian simple cyst measuring 2.3 cm. 3. Mild to moderate hiatal hernia. 4. Status post cholecystectomy with no biliary distention. Otherwise unremarkable abdominal viscera with no acute process. Electronically signed by: Destini Ramsay MD 04/20/24 02:27 AM Code Status & VTE Plan Code Status Full code VTE Prophylaxis Plan VTE Prophylaxis will be ordered: Yes PG Care Time/CCT Total # of Minutes Spent Total Time Spent with Patient: Total time spent is greater than 50% in coordination of care (as documented) at patient's floor/unit and/or counseling patient: Coding Level of Care Code 26016 INT INP/OBS CARE 3/75MIN Diagnoses Small bowel obstruction K56.609 Ovarian cyst, left N83.202 Vomiting R11.2 Nausea presence: with nausea Vomiting type: unspecified Malignant melanoma of lower limb C43.70 CLL (chronic lymphocytic leukemia) C91.90 Essential tremor G25.0 (3) Vomiting Nausea presence: with nausea Vomiting type: unspecified Qualified Code(s): R11.2 - Nausea with vomiting, unspecified
[2024-04-20] MEDS ORDERED: ACETAMINOPHEN 1000 MG/100 ML IV IV PRN (04:27)
[2024-04-20] MEDS ORDERED: ONDANSETRON INJ 2 MG/ML 2 ML VIAL IV PRN (04:27)
[2024-04-20] MEDS: KETOROLAC TROMETHAMINE 15 MG/ML VIAL IV PRN (04:45)
[2024-04-20] MEDS ORDERED: ACETAMINOPHEN 1,000 MG/100 ML VIAL IV PRN (04:45)
[2024-04-20] MEDS: LACTATED RINGER'S 1,000 ML IV SCH (04:46)
--- NOTE | 2024-04-20 10:47 | Surgery Consultation ---
Date of Consultation April 20, 2024 Assessment & Plan (1) Small bowel obstruction: 74 year-old female with history of cholecystectomy and SBO treated conservatively presented to ED with 1 day history of abdominal pain and bloating. CT scan with SBO without clear transition. Good bowel sounds on exam today and abdomen is soft, nontender, nondistended. Recommend conservative management. Can start clear liquids once passing flatus. Encouraged ambulating hallway to increase Gi motility. Discussed with Dr. gudino, see addendum for further recommendations/plan. Supervising Physician Co-Signing Physician Notes I have seen and examined the patient personally and agree with the above assessment and plan. In brief, 74-year-old with what appears to be a small bowel obstruction. On exam, she is soft and nontender. She is now passing some flatus. We reviewed the CT scan with radiology, either SBO versus enteritis. Given her clinical condition, we will continue conservative management for now. If she continues to pass flatus, we will advance her diet to clears. Will continue to follow. History of Present Illness Reason for Consultation: SBO Requesting Physician: Magno huerta Attending Physician: Magno Huerta History of Present Illness Candace is a 74 year-old female with history of laparoscopic cholecystectomy and prior SBO presented to ED with abdominal pain and bloating that started yesterday afternoon. Had some diarrhea prior but nothing since. History of SBO in 2021 treated conservatively. Currently states she is feeling better. Not having any abdominal pain, nausea or vomiting. Has not passed any gas yet. Does not feel as bloated today. Allergies Allergy/AdvReac Type Severity Reaction Status Date / Time allopurinol Allergy Intermediate SKIN Verified 02/24/24 07:17 REACTION Bactrim Allergy Intermediate SKIN Verified 07/01/18 21:06 REACTION prednisone Allergy Intermediate SKIN Verified 02/24/24 07:17 REACTION Sulfa (Sulfonamide Allergy Intermediate HIVES Verified 02/24/24 07:17 Antibiotics) sulfamethoxazole Allergy Intermediate SKIN Verified 02/24/24 07:17 REACTION trimethoprim Allergy Intermediate SKIN Verified 02/24/24 07:17 REACTION valacyclovir Allergy Intermediate SKIN Verified 02/24/24 07:17 REACTION Home Medications Medication Instructions Recorded Confirmed Type lysine 500 mg tablet (L-Lysine) 500 mg PO QAM 05/02/21 04/20/24 History multivitamin 1 tab PO QAM 05/02/21 04/20/24 History propranolol 10 mg tablet 10 mg PO BID 05/02/21 04/20/24 History Patient History Medical History History of intestinal obstruction determined it was from her gallbladder, no issues since gallbladder removed Hx of basal cell carcinoma on face History of anemia Migraine hx Elevated cholesterol hx-currently under control Surgical History Hx of basal cell carcinoma excision on face History of esophagogastroduodenoscopy (EGD) History of colonoscopy History of cholecystectomy Hx of melanoma excision right thigh History of cardiac radiofrequency ablation hx irregular heartbeat "fixed problem" 2016 - follows with Dr. Jarvis Family History Other Family history non-contributory No family history of adverse response to anesthesia Social History Smoking Status: Never smoker Second Hand Exposure: Yes (hx growing up); Do You Dip or Chew Tobacco: No; Hx Alcohol Use: Yes Alcohol type: wine Hx Substance Use: No Preferred Language: [place] Communication Ability: Effective Security Consultant Required: No Beliefs That Will Affect Care: None Current Living Situation: Spouse Current Living Situation Comment: Lives with at home Feels Safe at Home: Yes Safety Concerns: Feels Safe At This Time Assistive Devices: None Review of Systems Review of Systems: All systems reviewed & are unremarkable except as noted in HPI & below Physical Exam Constitutional: WD/WN, vitals as above cooperative and comfortable; no acute distress and not ill appearing Respiratory: normal respiratory effort, lungs clear to auscultation Cardiovascular: RRR, no murmur, no edema Gastrointestinal (Abdomen): Inspection/Auscultation: abdomen normal to inspection, normal bowel sounds and + abdominal surgical scar (lap gladis scars); abdomen not distended Percussion/Palpation: abdomen soft; abdomen nontender, no guarding, abdomen not rigid and abdomen not firm Skin: no rashes, warm and dry Results & Data Vital Signs (Past 12 Hours) Vital Signs Temp Pulse Pulse Pulse Resp BP BP 04/20/24 07:33 36.6 C 80 16 120/72 04/20/24 04:20 36.5 C 73 15 130/70 04/20/24 04:20 36.5 C 73 15 130/70 04/20/24 04:00 64 17 118/65 04/20/24 03:30 62 16 128/74 04/20/24 03:00 72 17 134/78 04/20/24 02:30 64 16 121/66 04/20/24 02:00 69 20 132/66 04/20/24 01:30 70 19 133/86 04/20/24 01:00 71 14 131/97 04/20/24 00:25 74 04/20/24 00:24 72 18 156/94 H 04/20/24 00:22 72 15 04/20/24 00:22 73 18 156/94 H 04/20/24 00:06 36.6 C 87 18 135/81 Pulse Ox O2 Del Method 04/20/24 07:33 96 Room Air 04/20/24 04:20 96 Room Air 04/20/24 04:20 96 Room Air 04/20/24 04:00 96 04/20/24 03:30 95 04/20/24 03:00 97 04/20/24 02:30 96 04/20/24 02:00 94 04/20/24 01:30 92 04/20/24 01:00 93 04/20/24 00:25 04/20/24 00:24 97 04/20/24 00:22 95 Room Air 04/20/24 00:22 95 Room Air 04/20/24 00:06 97 Room Air Laboratory Results 04/20/24 04/20/24 Range/Units 00:24 00:16 WBC 11.40 H (4.8-10.8) K/ul RBC 4.75 (4.20-5.40) M/uL Hgb 13.9 (12.0-16.0) g/dl POC Hgb 13.9 (12.0-16.0) g/dl Hct 41.9 (37.0-47.0) % POC Hct 41 (37-47) % MCV 88.2 (80.0-100.0) fL MCH 29.3 (25.0-34.0) pg MCHC 33.2 (32.0-36.0) g/dL RDW Std Deviation 42.5 (36.4-46.3) fL RDW Coeff of Suki 13.2 (11.5-14.5) % Plt Count 178 (130-400) K/uL MPV 10.6 (9.4-12.4) fL Immature Gran % (Auto) 0.4 % Neut % (Auto) 80.0 % Lymph % (Auto) 12.9 % [place] % (Auto) 4.7 % Eos % (Auto) 1.7 % Baso % (Auto) 0.3 % Neut # (Auto) 9.13 H (1.40-6.50) K/uL Lymph # (Auto) 1.47 (1.20-3.40) K/uL [place] # (Auto) 0.54 (0.11-0.59) K/uL Eos # (Auto) 0.19 (0.00-0.50) K/uL Baso # (Auto) 0.03 (0.00-0.20) K/uL Immature Gran # (Auto) 0.04 (0.01-0.20) K/uL POC Sodium 140 (135-144) mmol/L Sodium 139 (136-145) mmol/L POC Potassium 3.8 (3.3-5.0) mmol/L Potassium 3.9 (3.5-5.1) mmol/L POC Chloride 104 (101-112) mmol/L Chloride 105 (98-107) mmol/L Carbon Dioxide 26 (21-32) mmol/L POC Total CO2 26 (24-31) mmol/L Anion Gap 8 (3-11) POC Anion Gap 15.0 L (16-25) mmol/L POC BUN 14 (7-18) mg/dl BUN 15 (6-23) mg/dl Creatinine 0.62 (0.6-1.2) mg/dl POC Creatinine 0.6 (0.6-1.3) mg/dl Est Cr Clr Drug Dosing 79.8 ml/min Est GFR ( Amer) 104.4 ml/min Est GFR (Non-Af Amer) 90.1 ml/min BUN/Creatinine Ratio 24.2 H (10-20) Glucose 117 H (70-99(Fasting)) mg/dl POC Glucose (other) 117 H (70-99) mg/dl Calcium 9.8 (8.6-10.3) mg/dl POC Ioniz Calcium [place] 1.23 (1.12-1.32) mmol/l Total Bilirubin 0.5 (0.2-1.0) mg/dl AST 23 (13-39) U/L ALT 16 (7-52) U/L Alkaline Phosphatase 93 (34-104) U/L Total Protein 7.4 (6.0-8.3) gm/dl Albumin 4.5 (3.4-5.0) gm/dl Globulin 2.9 (2.5-4.0) gm/dl Albumin/Globulin Ratio 1.6 (0.9-2) Lipase 25 (11-82) U/L Urine Color Yellow Urine Appearance Clear (Clear) Urine pH 5.0 (4.5-7.5) Ur Specific [place] 1.006 (1.000-1.030) Urine Protein Negative (Negative) Urine Glucose (UA) Negative (Negative) Urine Ketones Negative (Negative) Urine Blood Negative (Negative) Urine Nitrite Negative (Negative) Urine Bilirubin Negative (Negative) Urine Urobilinogen Negative (Negative) Ur Leukocyte Esterase 1+ H (Negative) Urine WBC (Auto) 6-10 H (0-5) /hpf Urine RBC (Auto) 0-2 (0-2) /hpf U Hyaline Cast (Auto) 0-2 (0-2) /lpf U Epithel Cells (Auto) 0-2 (0-2) /hpf Urine Bacteria (Auto) None Seen (None Seen) Diagnostic Findings Abdomen/Pelvis CT 04/20/24 00:12 Exam(s): CT ABDOMEN + PELVIS With Contrast IV Amt: 91 ML OPTIRAY 320 EXAM: CT Abdomen and Pelvis With Intravenous Contrast CLINICAL HISTORY: Reason for exam: SBO. TECHNIQUE: Axial computed tomography images of the abdomen and pelvis with intravenous contrast. CTDI is 22 mGy and DLP is 1072.57 mGy-cm. Automated exposure control was utilized for the study. A dose lowering technique was utilized adhering to the principles of ALARA. CONTRAST: Patient received 91 ML OPTIRAY 320 of IV contrast COMPARISON: 02/04/2023. FINDINGS: Lung bases: Minimal bilateral lower lobe subpleural atelectasis. Heart: Unremarkable. No cardiomegaly. No significant pericardial effusion. Normal cardiac size. Mediastinum: Mild to moderate hiatal hernia. Otherwise stomach unremarkable. ABDOMEN: Liver: Unremarkable. No mass. Gallbladder and bile ducts: Status post cholecystectomy. No ductal dilation. Pancreas: Unremarkable. No mass. No ductal dilation. Spleen: Unremarkable. No splenomegaly. Adrenals: Unremarkable. No mass. Kidneys and ureters: Low-attenuation structure within the lower pole of the right kidney measuring 9 mm consistent with simple cyst. No further follow-up imaging recommended. Otherwise normal right kidney. Normal left kidney. No hydronephrosis. Stomach and bowel: Multiple loops of small bowel distended in the left upper quadrant to at least 4.4 cm concerning for small bowel obstruction, zone of transition indeterminate. Mild scattered diverticulosis throughout the colon with no signs of diverticulitis. Decompression of the descending colon. PELVIS: Appendix: Normal appendix. Bladder: Unremarkable. No mass. Reproductive: Anteverted uterus. Left ovarian simple cyst measuring 2. 3 x 2.2 cm. ABDOMEN and PELVIS: Intraperitoneal space: Mild to moderate free fluid in the cul-de-sac, nonspecific. No free air. Bones/joints: Diffuse osteopenia with mild degenerative disease of the lumbar spine, bilateral SI joints and hips. No acute fracture. No dislocation. Soft tissues: Tiny fat-containing umbilical hernia. Vasculature: Unremarkable. No abdominal aortic aneurysm. Lymph nodes: Unremarkable. No enlarged lymph nodes. IMPRESSION: 1. Small bowel obstruction with distended small bowel loops in the left upper quadrant, zone of transition indeterminate. No acute appendicitis. Mild diverticulosis with no signs of diverticulitis. 2. Nonspecific free fluid in the cul-de-sac with left ovarian simple cyst measuring 2.3 cm. 3. Mild to moderate hiatal hernia. 4. Status post cholecystectomy with no biliary distention. Otherwise unremarkable abdominal viscera with no acute process. Electronically signed by: Destini Ramsay MD 04/20/24 02:27 AM
[2024-04-20] MEDS: PANTOprazole 40 MG in SYRINGE 0 ML IV SCH (10:50)
[2024-04-20] MEDS: ACETAMINOPHEN 1,000 MG/100 ML VIAL IV STA (15:07)
[2024-04-20] MEDS: MoRPHine SULFATE 4 MG/ML 1 ML CARP\\VIAL IV PRN (16:48)
[2024-04-20] MEDS: diphenhydrAMINE 50 MG/ML VIAL IV STA (19:36)
[2024-04-20] MEDS: PROCHLORPERAZINE 10 MG in SYRINGE 4 ML IV ONE (20:26)
[2024-04-21 07:14] LABS: Basophils # (auto) 0.02 K/uL (0.00-0.20); Basophils % (auto) 0.6 %; Eosinophils # (auto) 0.15 K/uL (0.00-0.50); Eosinophils % (auto) 4.3 %; Hematocrit (blood only) 33.9 % (37.0-47.0); Hemoglobin 11.1 g/dl (12.0-16.0); Immature Granulocytes # (auto) 0.01 K/uL (0.01-0.20); Immature Granulocytes % (auto) 0.3 %; Lymphocytes # (auto) 1.03 K/uL (1.20-3.40); Lymphocytes % (auto) 29.9 %; Mean Corpuscular Hemoglobin 29.1 pg (25.0-34.0); Mean Corpuscular Hgb Conc 32.7 g/dL (32.0-36.0); Mean Platelet Volume 10.9 fL (9.4-12.4); Monocytes # (auto) 0.24 K/uL (0.11-0.59); Neutrophils % (auto) 57.9 %; Platelet Count 117 K/uL (130-400); RDW Coefficient of Variation 13.2 % (11.5-14.5); RDW Standard Deviation 43.3 fL (36.4-46.3); Red Blood Count 3.81 M/uL (4.20-5.40); White Blood Count 3.45 K/ul (4.8-10.8)
[2024-04-21 07:44] LABS: Alanine Aminotransferase 11 U/L (7-52); Albumin Globulin Ratio 1.7 (0.9-2); Albumin Level 3.6 gm/dl (3.4-5.0); Alkaline Phosphatase 79 U/L (34-104); Anion Gap 5 (3-11); Aspartate Aminotransferase 15 U/L (13-39); BUN Creatinine Ratio 20.8 (10-20); Bilirubin,Total 0.4 mg/dl (0.2-1.0); Blood Urea Nitrogen 11 mg/dl (6-23); C Reactive Protein < 0.50 mg/dl (0-0.5); Calcium 8.8 mg/dl (8.6-10.3); Carbon Dioxide 28 mmol/L (21-32); Chloride 109 mmol/L (98-107); Creatinine Clr Calc Pharmacy 98.1 ml/min; Est GFR (African American) 109.9 ml/min; Est GFR (Non-African American) 94.9 ml/min; Globulin 2.1 gm/dl (2.5-4.0); Glucose 85 mg/dl (70-99(Fasting)); Potassium 3.4 mmol/L (3.5-5.1); Sodium 142 mmol/L (136-145); Total Protein 5.7 gm/dl (6.0-8.3)
--- NOTE | 2024-04-21 09:00 | Surgery Progress Note ---
Date of Service April 21, 2024 Assessment & Plan (1) Small bowel obstruction: Plan: 74 year-old female with history of cholecystectomy and SBO treated conservatively presented to ED with 1 day history of abdominal pain and bloating. CT scan with SBO without clear transition. Possible enteritis vs PSBO 04/21/2024 avss + flatus no abdominal pain, abdominal exam benign Plan: clear liquids encourage continued ambulation continue medical management Admission and Anticipated Discharge Date Admission Date: April 20, 2024 Supervising Physician Co-Signing Physician Notes I have seen and examined the patient personally and agree with the above assessment and plan. In brief, she is passing flatus now. She is tolerating clear liquids. Abdomen is soft, nontender. Continue to advance diet. Possible discharge to home tomorrow. Subjective feeling good no abdominal pain, n,v passing gas no bowel movement yet Physical Exam Constitutional: WD/WN, vitals as above cooperative and comfortable; no acute distress and not ill appearing Respiratory: normal respiratory effort; no respiratory distress Gastrointestinal (Abdomen): Inspection/Auscultation: abdomen normal to inspection, normal bowel sounds and + abdominal surgical scar (laparoscopic scars); abdomen not distended Percussion/Palpation: abdomen soft; abdomen nontender, no guarding and abdomen not rigid Skin: no rashes, warm and dry Psychiatric: A+Ox3, euthymic affect Results & Data Vital Signs (Past 12 Hours) Vital Signs Temp Pulse Resp BP Pulse Ox O2 Del Method 04/21/24 07:20 36.4 C L 69 20 149/71 H 95 Room Air Laboratory Results 04/21/24 Range/Units 06:27 WBC 3.45 L (4.8-10.8) K/ul RBC 3.81 L (4.20-5.40) M/uL Hgb 11.1 L (12.0-16.0) g/dl Hct 33.9 L (37.0-47.0) % MCV 89.0 (80.0-100.0) fL MCH 29.1 (25.0-34.0) pg MCHC 32.7 (32.0-36.0) g/dL RDW Std Deviation 43.3 (36.4-46.3) fL RDW Coeff of Suki 13.2 (11.5-14.5) % Plt Count 117 L (130-400) K/uL MPV 10.9 (9.4-12.4) fL Immature Gran % (Auto) 0.3 % Neut % (Auto) 57.9 % Lymph % (Auto) 29.9 % Banks % (Auto) 7.0 % Eos % (Auto) 4.3 % Baso % (Auto) 0.6 % Neut # (Auto) 2.00 (1.40-6.50) K/uL Lymph # (Auto) 1.03 L (1.20-3.40) K/uL Banks # (Auto) 0.24 (0.11-0.59) K/uL Eos # (Auto) 0.15 (0.00-0.50) K/uL Baso # (Auto) 0.02 (0.00-0.20) K/uL Immature Gran # (Auto) 0.01 (0.01-0.20) K/uL Sodium 142 (136-145) mmol/L Potassium 3.4 L (3.5-5.1) mmol/L Chloride 109 H (98-107) mmol/L Carbon Dioxide 28 (21-32) mmol/L Anion Gap 5 (3-11) BUN 11 (6-23) mg/dl Creatinine 0.53 L (0.6-1.2) mg/dl Est Cr Clr Drug Dosing 98.1 ml/min Est GFR ( Amer) 109.9 ml/min Est GFR (Non-Af Amer) 94.9 ml/min BUN/Creatinine Ratio 20.8 H (10-20) Glucose 85 (70-99(Fasting)) mg/dl Calcium 8.8 (8.6-10.3) mg/dl Magnesium 2.0 (1.7-2.4) mg/dl Total Bilirubin 0.4 (0.2-1.0) mg/dl AST 15 (13-39) U/L ALT 11 (7-52) U/L Alkaline Phosphatase 79 (34-104) U/L C-Reactive Protein < 0.50 (0-0.5) mg/dl Total Protein 5.7 L D (6.0-8.3) gm/dl Albumin 3.6 (3.4-5.0) gm/dl Globulin 2.1 L (2.5-4.0) gm/dl Albumin/Globulin Ratio 1.7 (0.9-2)
--- NOTE | 2024-04-21 22:08 | Hospitalist Progress Note ---
Date of Service April 21, 2024 Assessment & Plan (1) Small bowel obstruction: (2) Ovarian cyst, left: (3) Vomiting: (4) Malignant melanoma of lower limb: (5) CLL (chronic lymphocytic leukemia): (6) Essential tremor: Plan Small bowel obstruction- CT scan with indeterminate transition zone History of previous small bowel obstruction requiring admission from 07/14- 07/16/2022 initially NPO, now tolerating a full liquid diet passing flatulence, no bowel movement as of yet Pantoprazole 40 mg IV daily Acetaminophen 1 g IV every 8 hours as needed for mild pain or fever Toradol 15 mg IV every 6 hours as needed for moderate pain Morphine sulfate 4 mg IV every 3 hours as needed for severe pain Malignant melanoma of lower limb/CLL- Not currently on treatment Left ovarian cyst- Potentially of concern in a 74-year-old female Will need to follow-up with [facility] [employer] Admission and Anticipated Discharge Date Admission Date: April 20, 2024 Subjective Patient reports having flatulnce. Feels comfortable, tolerating her diet. Review of Systems Review of Systems: All systems reviewed & are unremarkable except as noted in HPI & below Physical Exam Physical Exam: The patient is awake, alert and oriented 3\ HEENT--PERRL, EOMI\ Neck--supple. No JVD. No bruits. Thyroid normal, trachea midline, no adenopathy. Heart--normal S1 and S2. No murmurs, rubs or gallops. Lungs--clear bilaterally, no respiratory distress, no accessory muscle use. Abdomen--decreased bowel sounds bowel. Mildly distended and firm. Generalized mild pain. Extremities--No edema. There are good distal pulses b/l. Results & Data Results & Data Vital Signs (Past 12 Hours) Vital Signs Temp Pulse Resp BP Pulse Ox O2 Del Method 04/21/24 19:00 36.6 C 75 18 145/78 H 96 Room Air 04/21/24 15:40 Room Air 04/21/24 15:18 36.6 C 77 16 156/75 H 94 Room Air PG Care Time/CCT Total # of Minutes Spent Total Time Spent with Patient: Total time spent is greater than 50% in coordination of care (as documented) at patient's floor/unit and/or counseling patient: Coding Level of Care Code 75419 SUB INP/OBS CARE 2/35MIN Diagnoses Small bowel obstruction K56.609 Ovarian cyst, left N83.202 Vomiting R11.2 Nausea presence: with nausea Vomiting type: unspecified Malignant melanoma of lower limb C43.70 CLL (chronic lymphocytic leukemia) C91.90 Essential tremor G25.0 (3) Vomiting Nausea presence: with nausea Vomiting type: unspecified Qualified Code(s): R11.2 - Nausea with vomiting, unspecified
[2024-04-22] MEDS: diphenhydrAMINE 50 MG/ML VIAL IV STA (01:02)
--- NOTE | 2024-04-22 03:19 | Surgery Progress Note ---
Date of Service April 22, 2024 Assessment & Plan (1) Small bowel obstruction: Plan: doing well. Continuing to pass flatus. Advance diet as tolerated. May be discharged home today from surgical standpoint. Admission and Anticipated Discharge Date Admission Date: April 20, 2024 Subjective Continues to do well. Passing flatus. Tolerating her advancing diet well. No nausea or vomiting. Physical Exam Physical Exam: NAD, A&O x 3 AFVSS Abdomen, soft, nontender Results & Data Vital Signs (Past 12 Hours) Vital Signs Temp Pulse Resp BP Pulse Ox O2 Del Method 04/21/24 22:23 36.5 C 70 18 131/60 95 Room Air 04/21/24 19:00 36.6 C 75 18 145/78 H 96 Room Air 04/21/24 15:40 Room Air
[2024-04-22 06:16] LABS: Basophils # (auto) 0.02 K/uL (0.00-0.20); Basophils % (auto) 0.6 %; Eosinophils # (auto) 0.16 K/uL (0.00-0.50); Eosinophils % (auto) 4.6 %; Hematocrit (blood only) 32.8 % (37.0-47.0); Hemoglobin 10.9 g/dl (12.0-16.0); Immature Granulocytes # (auto) 0.01 K/uL (0.01-0.20); Immature Granulocytes % (auto) 0.3 %; Lymphocytes % (auto) 31.5 %; Mean Corpuscular Hemoglobin 29.1 pg (25.0-34.0); Mean Corpuscular Hgb Conc 33.2 g/dL (32.0-36.0); Mean Corpuscular Volume 87.5 fL (80.0-100.0); Mean Platelet Volume 11.1 fL (9.4-12.4); Monocytes # (auto) 0.29 K/uL (0.11-0.59); Monocytes % (auto) 8.3 %; Neutrophils # (auto) 1.91 K/uL (1.40-6.50); Neutrophils % (auto) 54.7 %; Platelet Count 124 K/uL (130-400); RDW Standard Deviation 40.9 fL (36.4-46.3); Red Blood Count 3.75 M/uL (4.20-5.40); White Blood Count 3.49 K/ul (4.8-10.8)
[2024-04-22 06:29] LABS: Albumin Globulin Ratio 1.9 (0.9-2); Albumin Level 3.7 gm/dl (3.4-5.0); BUN Creatinine Ratio 12.3 (10-20); Bilirubin,Total 0.4 mg/dl (0.2-1.0); Calcium 9.1 mg/dl (8.6-10.3); Creatinine Clr Calc Pharmacy 91.2 ml/min; Est GFR (African American) 107.3 ml/min; Est GFR (Non-African American) 92.6 ml/min; Potassium 3.3 mmol/L (3.5-5.1); Total Protein 5.7 gm/dl (6.0-8.3)
[2024-04-22] MEDS: POTASSIUM CHLORIDE CRTAB 20 MEQ TABCR PO STA (09:22)
--- NOTE | 2024-04-22 18:47 | Discharge Summary ---
Discharge Summary Date of Service April 22, 2024 Notes For Next Care Provider pt did tolerate conservative management of sbo, no new medicaiton changes did have ovarian cyst identified recommend follow up or [facility] referral Admission HPI Per Admitting Provider The patient is a 74-year-old female with past medical history including small bowel obstruction, malignant melanoma of lower limb, essential tremor, CLL and osteoporosis. She presents to the emergency department with acute onset of lower abdominal pain by nausea without vomiting that began earlier in the day today. Her last admission was from 07/14-07/16/2022 for small bowel obstruction, that resolved spontaneously with conservative treatment. She denies any recent change in pain eating habits. She denies any recent travels or sick exposures. She had been somewhat constipated, but developed diarrhea earlier in the day today as well. CT scan of abdomen pelvis emergency department is consistent with small bowel obstruction, with indeterminate transition zone. There is also noted a left ovarian cyst of 2.3 cm in size, with free pelvic fluid. Principal Dx & Hospital Course #1 = Principal Diagnosis (1) Small bowel obstruction: Small bowel obstruction- CT scan with indeterminate transition zone History of previous small bowel obstruction requiring admission from 07/14- 07/16/2022 improved with conservative management , did tolerate po and have bowel movement (2) Ovarian cyst, left: (3) Malignant melanoma of lower limb: noted in history will have outpt continued folllow up (4) CLL (chronic lymphocytic leukemia): (5) Essential tremor: remains on propranolol Discharge Exam awake and alert, no abdominal pain nabs soft Updated Medication List Medication Instructions Recorded Confirmed Type lysine 500 mg tablet (L-Lysine) 500 mg PO QAM 05/02/21 04/20/24 History multivitamin 1 tab PO QAM 05/02/21 04/20/24 History propranolol 10 mg tablet 10 mg PO BID 05/02/21 04/20/24 History Hospital Stay Data Consultations 04/20/24 02:32 ED Decision to Admit Stat 04/20/24 08:17 Consult General Surgery Routine Diagnostic Imagining Performed 04/20/24 00:12 CT abd pelvis IV con only Stat Pending Results Patient Have Any Pending Studies at Discharge: No Discharge Instructions Given to Patient (Per Discharging Provider) consider a low fiber diet for a few days, there was a discovery of a ovarian cyst on CT of the abdomen pelvis, this should have follow up red flag symptoms would be increasing unrelieved abdominal pain, vomiting or not bowel movement for a few days Total Time Total Time Spent Total Time Spent (In Minutes): less that 30 minutes required to prepare this discharge Coding Level of Care Code 78695 IN/OBS DISCH 30 MIN/LESS Diagnoses Small bowel obstruction K56.609 Ovarian cyst, left N83.202 Malignant melanoma of lower limb C43.70 CLL (chronic lymphocytic leukemia) C91.90 Essential tremor G25.0
== END 2024-04-22 13:35 | disposition home or self-care (01) | DRG 389 ==
LOC: ED 00:03 → SUATTDRO 03:25 → INTOOBSV 03:25 → 3N 03:25